=== PATIENT | female | born 1995 | race Caucasian/White ===

== ENCOUNTER 2019-04-21 20:43 | Emergency (ER) | payer BC, OTHER ==
[2019-04-21 21:27] LABS: Absolute Lymphocytes (CBC) 3.4 K/uL (0.7-4.9); Basophils % 0.4 % (0-1.3); Hematocrit 38.2 % (36.0-45.0); Lymphocytes % 34.2 % (15.3-44.8); MPV 7.7 fL (7.6-11.3); RBC Red Blood Cell Count 4.48 M/uL (3.86-4.86)
[2019-04-21 21:40] LABS: Urine Blood NEGATIVE (NEG); Urine Glucose NEGATIVE (NEG); Urine Protein NEGATIVE (NEG); Urine Specific Gravity 1.025 (1.005-1.030)
[2019-04-21 21:45] LABS: ALT/SGPT 20 U/L (12-78); AST/SGOT 16 U/L (15-37); Albumin 3.8 g/dL (3.4-5.0); Alkaline Phosphatase 82 U/L (45-117); BUN Blood Urea Nitrogen 9 mg/dL (7-18); Bicarbonate 27 mmol/L (21-32); Bilirubin Direct < 0.1 mg/dL (0-0.2); Bilirubin Total 0.3 mg/dL (0.2-1.0); Glucose Level 72 mg/dL (74-106); Lipase 190 U/L (73-393); Protein, Total 7.4 g/dL (6.4-8.2); Sodium Level 138 mmol/L (136-145)
[2019-04-21] MEDS ORDERED: NA CHLORIDE 0.9% 500 ML ONE (21:45)
[2019-04-21] MEDS ORDERED: MORPHINE 2 MG/ML SYR ONE (21:45)
[2019-04-21] MEDS ORDERED: MAGNE/ALUM HYDROXD 30 ML UCUP ONE (21:45)
[2019-04-21] MEDS ORDERED: FAMOTIDINE 20 MG/2 ML VIAL IV ONE (21:46)
[2019-04-21] MEDS ORDERED: LIDOCAINE VISCOUS 2% SOLN 15 ML UDC ONE (21:46)
--- NOTE | 2019-04-21 23:24 | ER ---
Nurse's Notes [facility] Name: Nusrat Mart Age: 23 yrs Sex: Female : 1995 Arrival Date: 04/21/2019 Time: 20:45 Bed 20 Private MD: Diagnosis: Abdominal and pelvic pain Presentation: 04/21 20:51 Presenting complaint: Patient states: Abdominal pain, lower back pain. Every time I ca1 eat, I have a stinging pain and like somebody is squeezing my intestines. Started almost a week now, comes and go but has gotten worse and today has been constant. Reports nausea and vomiting x1. Denies fever, constipation and diarrhea. Transition of care: patient was not received from another setting of care. Onset of symptoms was April 21, 2019. Risk Assessment: Do you want to hurt yourself or someone else? Patient reports no desire to harm self or others. Initial Sepsis Screen: Does the patient meet any 2 criteria? No. Patient's initial sepsis screen is negative. Does the patient have a suspected source of infection? No. Patient's initial sepsis screen is negative. Care prior to arrival: None. 20:51 Method Of Arrival: Ambulatory ca1 20:51 Acuity: PIERRE 3 ca1 Triage Assessment: 21:00 General: Appears in no apparent distress. uncomfortable, Behavior is calm, cooperative, cc3 appropriate for age. Pain: Complains of pain in right upper abdomen, left side abdomen. GI: Abdomen is round non-distended, Bowel sounds present X 4 quads. Abd is soft X 4 quads Abdomen is tender to palpation in right upper, left side abdomen. 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 - Social history:: Smoking status: Patient/guardian denies using tobacco. - Ebola Screening: : Patient negative for fever greater than or equal to 101.5 degrees Fahrenheit, and additional compatible Ebola Virus Disease symptoms Patient denies exposure to infectious person Patient denies travel to an Ebola-affected area in the 21 days before illness onset No symptoms or risks identified at this time. Screenin:00 Abuse screen: Denies threats or abuse. Denies injuries from another. Nutritional cc3 screening: No deficits noted. Tuberculosis screening: No symptoms or risk factors identified. Fall Risk Ambulatory Aid- None/Bed Rest/Nurse Assist (0 pts). Gait- Normal/Bed Rest/Wheelchair (0 pts) Mental Status- Oriented to own ability (0 pts). Assessment: 21:00 General: Appears in no apparent distress. uncomfortable, Behavior is calm, cooperative, cc3 appropriate for age. Pain: Complains of pain in right upper and left side abdomen Quality of pain is described as aching, Pain began 1 week ago. Neuro: Level of Consciousness is awake, alert, obeys commands, Oriented to person, place, time, situation, Appropriate for age. Cardiovascular: Denies chest pain, Heart tones S1 S2 present Capillary refill < 3 seconds in bilateral fingers Patient's skin is warm and dry. Respiratory: Airway is patent Respiratory effort is even, unlabored, Respiratory pattern is regular, symmetrical. GI: Abdomen is round non-distended, Bowel sounds present X 4 quads. Abd is soft X 4 quads Abdomen is tender to palpation in right upper and left side abdomen. : No signs and/or symptoms were reported regarding the genitourinary system. EENT: No signs and/or symptoms were reported regarding the EENT system. Derm: Skin is intact, is healthy with good turgor, Skin is pink, warm \T\ dry. normal. Musculoskeletal: Circulation, motion, and sensation intact. Range of motion: intact in all extremities. 22:10 Reassessment: Patient appears in no apparent distress at this time. Patient and/or cc3 family updated on plan of care and expected duration. Pain level reassessed. Patient is alert, oriented x 3, equal unlabored respirations, skin warm/dry/pink. Patient taken to CT scan department by wheelchair by the auto glass technician. 22:25 Reassessment: Patient came back from CT scan department, awaiting result. cc3 23:44 Reassessment: Patient appears in no apparent distress at this time. Patient and/or cc3 family updated on plan of care and expected duration. Pain level reassessed. Patient is alert, oriented x 3, equal unlabored respirations, skin warm/dry/pink. ACADEMIC TUTOR Norah discharged the patient home, no prescription given. IV cannula removed and patient left ER vitally stable by wheelchair escorted by me and the patient's family. No valuables left in the patient's room. Patient denies pain at this time. Patient states feeling better. Patient states symptoms have improved. Vital Signs: 20:55 BP 125 / 79; Pulse 81; Resp 16 S; Temp 97.9(O); Pulse Ox 99% on R/A; Weight 81.65 kg ca1 (R); Height 5 ft. 4 in. (162.56 cm) (R); Pain 5/10; 21:18 BP 120 / 74; Pulse 80; Resp 15 S; Pulse Ox 99% on R/A; cc3 22:31 BP 134 / 91; Pulse 66; Resp 15 S; Pulse Ox 100% on R/A; cc3 23:30 BP 122 / 81; Pulse 63; Resp 16 S; Pulse Ox 99% on R/A; Pain 0/10; cc3 20:55 Body Mass Index 30.90 (81.65 kg, 162.56 cm) ca1 ED Course: 20:45 Patient arrived in ED. ds1 20:54 Triage completed. ca1 20:55 Arm band placed on right wrist. ca1 20:59 Ángel Almazan FNP-C [facility]. la1 20:59 Ebenezer Wong MD is Attending Physician. la1 21:00 Iwona Gore is Primary Nurse. cc3 21:00 Patient has correct armband on for positive identification. Bed in low position. Call cc3 light in reach. Side rails up X2. 21:26 Inserted saline lock: 20 gauge in right antecubital area, using aseptic technique. jb5 Blood collected. 21:27 Pulse ox on. NIBP on. jb5 21:27 Head of bed lowered. Patient given pillow for her head.. jb5 22:26 CT Abd/Pelvis - IV Contrast Only In Process Unspecified. EDMS 22:26 CT completed. Patient tolerated procedure well. Patient moved back from CT. bq 23:45 No provider procedures requiring assistance completed. IV discontinued, intact, cc3 bleeding controlled, No redness/swelling at site. Pressure dressing applied. Administered Medications: 21:40 Drug: NS 0.9% 500 ml Route: IV; Rate: bolus; Site: right antecubital; cc3 22:15 Follow up: Response: No adverse reaction; IV Status: Completed infusion; IV Intake: cc3 500ml 21:40 Drug: GI Cocktail without - (Maalox Suspension 30 ml, Lidocaine Liquid 2 % 15 cc3 ml) Route: PO; 22:32 Follow up: Response: No adverse reaction; Pain is decreased cc3 21:45 Drug: morphine 2 mg {Note: RASS 0.} Route: IVP; Site: right antecubital; cc3 22:32 Follow up: Response: No adverse reaction; Pain is decreased; RASS: Alert and Calm (0) cc3 21:50 Drug: Pepcid 20 mg Route: IVP; Site: right antecubital; cc3 22:32 Follow up: Response: No adverse reaction; Pain is decreased cc3 Intake: 22:15 IV: 500ml; Total: 500ml. cc3 Outcome: 23:23 Discharge ordered by . la1 23:44 Patient left the ED. cc3 23:44 Discharged to home via wheelchair, with family. cc3 23:44 Condition: stable 23:44 Discharge instructions given to patient, family, Instructed on discharge instructions, follow up and referral plans. Demonstrated understanding of instructions, follow-up care. Signatures: Dispatcher [employer] EDRacheal Turk Demi ds1 Ángel Almazan, LINOLEUM LAYER-C LINOLEUM LAYER-Chance1 Angelina Rodriguez jb5 Iwona Groe cc3 Adriana Rodriguez, RN RN ca1
--- NOTE | 2019-04-21 23:25 | EDPHYS ---
Physician Documentation [facility] Name: Nusrat Mart Age: 23 yrs Sex: Female : 1995 Arrival Date: 04/21/2019 Time: 20:45 Bed 20 Private MD: ED Physician Ebenezer Wong HPI: 04/21 21:19 This 23 yrs old Female presents to ER via Ambulatory with complaints of la1 Abdominal Pain. 21:19 The patient presents with abdominal pain that is diffuse. Onset: The symptoms/episode la1 began/occurred 5 day(s) ago. The symptoms do not radiate. Associated signs and symptoms: Pertinent positives: nausea and vomiting. The symptoms are described as sharp. Modifying factors: The symptoms are alleviated by antacids, the symptoms are aggravated by food. Severity of pain: At its worst the pain was moderate. The patient has not experienced similar symptoms in the past. Pt reports abd pain since Monday, one episode of vomiting. Pain is worse after eating, pain relieved some with zantac. 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 - Social history:: Smoking status: Patient/guardian denies using tobacco. - Ebola Screening: : Patient negative for fever greater than or equal to 101.5 degrees Fahrenheit, and additional compatible Ebola Virus Disease symptoms Patient denies exposure to infectious person Patient denies travel to an Ebola-affected area in the 21 days before illness onset No symptoms or risks identified at this time. ROS: 21:20 Constitutional: Negative for fever, chills, and weight loss, Eyes: Negative for injury, la1 pain, redness, and discharge, ENT: Negative for injury, pain, and discharge, Neck: Negative for injury, pain, and swelling, Cardiovascular: Negative for chest pain, palpitations, and edema, Respiratory: Negative for shortness of breath, cough, wheezing, and pleuritic chest pain. 21:20 Back: Negative for injury and pain, MS/Extremity: Negative for injury and deformity, Skin: Negative for injury, rash, and discoloration, Neuro: Negative for headache, weakness, numbness, tingling, and seizure. 21:20 Abdomen/GI: Positive for abdominal pain, nausea and vomiting, Negative for diarrhea. Exam: 21:21 Constitutional: This is a well developed, well nourished patient who is awake, alert, la1 and in no acute distress. Head/Face: Normocephalic, atraumatic. Eyes: Pupils equal round and reactive to light, extra-ocular motions intact. Lids and lashes normal. Conjunctiva and sclera are non-icteric and not injected. Cornea within normal limits. Periorbital areas with no swelling, redness, or edema. ENT: Nares patent. No nasal discharge, no septal abnormalities noted. Tympanic membranes are normal and external auditory canals are clear. Oropharynx with no redness, swelling, or masses, exudates, or evidence of obstruction, uvula midline. Mucous membranes moist. Neck: Trachea midline, no thyromegaly or masses palpated, and no cervical lymphadenopathy. Supple, full range of motion without nuchal rigidity, or vertebral point tenderness. No Meningismus. Chest/axilla: Normal chest wall appearance and motion. Nontender with no deformity. No lesions are appreciated. Cardiovascular: Regular rate and rhythm with a normal S1 and S2. No gallops, murmurs, or rubs. Normal PMI, no JVD. No pulse deficits. Respiratory: Lungs have equal breath sounds bilaterally, clear to auscultation No rales, rhonchi or wheezes noted. No increased work of breathing, no retractions or nasal flaring. 21:21 Abdomen/GI: Inspection: abdomen appears normal, Bowel sounds: normal, Palpation: soft, in all quadrants, mild abdominal tenderness, in all quadrants, Indicators: McBurney's point is not tender, Vee's sign is negative, Rovsing's sign is negative, Obturator sign is negative, Psoas sign is negative. Vital Signs: 20:55 BP 125 / 79; Pulse 81; Resp 16 S; Temp 97.9(O); Pulse Ox 99% on R/A; Weight 81.65 kg ca1 (R); Height 5 ft. 4 in. (162.56 cm) (R); Pain 5/10; 21:18 BP 120 / 74; Pulse 80; Resp 15 S; Pulse Ox 99% on R/A; cc3 22:31 BP 134 / 91; Pulse 66; Resp 15 S; Pulse Ox 100% on R/A; cc3 23:30 BP 122 / 81; Pulse 63; Resp 16 S; Pulse Ox 99% on R/A; Pain 0/10; cc3 20:55 Body Mass Index 30.90 (81.65 kg, 162.56 cm) ca1 MDM: 20:59 Patient medically screened. la1 23:22 Data reviewed: vital signs, nurses notes, lab test result(s), radiologic studies, and la1 as a result, I will discharge patient. Data interpreted: Pulse oximetry: on room air is 100 %. Interpretation: normal. Counseling: I had a detailed discussion with the patient and/or guardian regarding: the historical points, exam findings, and any diagnostic results supporting the discharge/admit diagnosis, lab results, radiology results, the need for outpatient follow up, a family practitioner. 04/21 21:07 Order name: Basic Metabolic Panel; Complete Time: 21:52 ut04/21 21:07 Order name: CBC with Diff; Complete Time: 21:52 ut04/21 21:07 Order name: Creatinine for Radiology; Complete Time: 21:52 ut04/21 21:07 Order name: Hepatic Function; Complete Time: 21:52 [facility] 04/21 21:07 Order name: Lipase; Complete Time: 21:52 [facility] 04/21 21:32 Order name: Urine Dipstick--Ancillary (enter results); Complete Time: 21:52 co 04/21 21:07 Order name: IV Saline Lock; Complete Time: 21:58 [facility] 04/21 21:07 Order name: Labs collected and sent; Complete Time: 21:58 [facility] 04/21 21:32 Order name: Urine --Ancillary (enter results); Complete Time: 21:52 co 04/21 22:01 Order name: CT Abd/Pelvis - IV Contrast Only [facility] 04/21 21:07 Order name: Urine Dipstick-Ancillary (obtain specimen); Complete Time: 21:58 ut04/21 21:07 Order name: Urine Test (obtain specimen); Complete Time: 21:58 la1 Administered Medications: 21:40 Drug: NS 0.9% 500 ml Route: IV; Rate: bolus; Site: right antecubital; cc3 22:15 Follow up: Response: No adverse reaction; IV Status: Completed infusion; IV Intake: cc3 500ml 21:40 Drug: GI Cocktail without - (Maalox Suspension 30 ml, Lidocaine Liquid 2 % 15 cc3 ml) Route: PO; 22:32 Follow up: Response: No adverse reaction; Pain is decreased cc3 21:45 Drug: morphine 2 mg {Note: RASS 0.} Route: IVP; Site: right antecubital; cc3 22:32 Follow up: Response: No adverse reaction; Pain is decreased; RASS: Alert and Calm (0) cc3 21:50 Drug: Pepcid 20 mg Route: IVP; Site: right antecubital; cc3 22:32 Follow up: Response: No adverse reaction; Pain is decreased cc3 Disposition: 04/22 06:04 Co-signature as Attending Physician, Ebenezer Wong MD I agree with the assessment and tw4 plan of care. Disposition: 04/21/19 23:23 Discharged to Home. Impression: Abdominal and pelvic pain. - Condition is Stable. - Discharge Instructions: Abdominal Pain, Adult, [id number]. - Medication Reconciliation Form, Thank You Letter form. - Follow up: Private Physician; When: 2 - 3 days; Reason: Recheck today's complaints, Re-evaluation by your physician. Follow up: Emergency Department; When: As needed. - Problem is new. - Symptoms have improved. Signatures: Dispatcher [employer] EDMS Ángel Almazan, NET LEAD ARCHITECT-C NET LEAD ARCHITECT-Cla1 Ebenezer Wong MD MD tw4 Iwona Gore cc3 Adriana Rodriguez RN RN ca1 Corrections: (The following items were deleted from the chart) 04/21 23:44 23:23 04/21/2019 23:23 Discharged to Home. Impression: Abdominal and pelvic pain. cc3 Condition is Stable. Forms are Medication Reconciliation Form, Thank You Letter, Antibiotic Education, Prescription Opioid Use. Follow up: Private Physician; When: 2 - 3 days; Reason: Recheck today's complaints, Re-evaluation by your physician. Follow up: Emergency Department; When: As needed. Problem is new. Symptoms have improved. la1
[2019-04-22 04:22] VITALS: TEMP 97.9
[2019-04-22 04:28] VITALS: BP 134/91; O2SAT 100
--- NOTE | 2019-04-23 12:29 | RAD REPORT ---
EXAM DESCRIPTION: CT - Abdomen Pelvis W Contrast - 04/22/2019 5:55 am CLINICAL HISTORY: Abdominal pain. COMPARISON: None. TECHNIQUE: CT scan of the abdomen and pelvis was performed with IV contrast. This exam was performed according to our departmental dose-optimization program, which includes automated exposure control, adjustment of the mA and/or kV according to patient size and/or use of iterative reconstruction techn ique. FINDINGS: The lung bases are clear. No pleural or pericardial effusions. There is no hiatal hernia. The liver, spleen, pancreas, gallbladder, adrenal glands, and kidneys are unremarkable. No urinary st ones are seen. There is a 2.4 cm left ovarian cyst. No small bowel obstruction. The appendix is normal. There is no evidence of diverticulitis. No intrap eritoneal free fluid or free air is identified. The aorta is normal caliber. No acute bony findings are seen. There is no pathologic body wall hernia . IMPRESSION: 2.4 cm benign appearing ovarian cyst. No follow-up imaging is recommended. 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 The interpreting radiologist is f ully responsible for the content of the report.
== END 2019-04-21 23:44 | disposition home or self-care (01) ==
LOC: ER 20:43
DX: R10.2 Pelvic and perineal pain (principal); E03.9 Hypothyroidism, unspecified; F32.9 Major depressive disorder, single episode, unspecified
CPT/HCPCS: 96361; 85025; 80048; 36415; 81025; 80076; 81003; 83690; 74177; 96375; 96374; 99284; Q9967; J2270; J7040

== ENCOUNTER 2020-01-31 11:41 | Emergency (ER) | payer BC ==
[2020-01-31 12:42] LABS: Absolute Lymphocytes (CBC) 1.6 K/uL (0.7-4.9); Basophils % 0.7 % (0-1.3); Hematocrit 38.9 % (36.0-45.0); Lymphocytes % 27.2 % (15.3-44.8); MPV 7.5 fL (7.6-11.3); RBC Red Blood Cell Count 4.62 M/uL (3.86-4.86)
[2020-01-31 12:44] LABS: Protime INR 1.12
--- NOTE | 2020-01-31 12:51 | RAD REPORT ---
EXAM DESCRIPTION: RAD - Chest Single View - 01/31/2020 12:45 pm CLINICAL HISTORY: CHEST PAIN Chest pain. COMPARISON: No comparisons FINDINGS: Portable technique limits examination quality. The lungs are grossly clear. The heart is normal in size. No displaced fractures. IMPRESSION: No acute intrathoracic process suspected.
[2020-01-31 13:02] LABS: ALT/SGPT 20 U/L (12-78); AST/SGOT 14 U/L (15-37); Albumin 3.5 g/dL (3.4-5.0); Alkaline Phosphatase 87 U/L (45-117); BUN Blood Urea Nitrogen 15 mg/dL (7-18); Bicarbonate 26 mmol/L (21-32); Bilirubin Direct 0.1 mg/dL (0-0.2); Bilirubin Total 0.5 mg/dL (0.2-1.0); Glucose Level 82 mg/dL (74-106); Protein, Total 7.3 g/dL (6.4-8.2); Sodium Level 139 mmol/L (136-145)
[2020-01-31 13:19] LABS: Barbiturates NEGATIVE (NEGATIVE); Benzodiazepines POSITIVE (NEGATIVE); Cocaine NEGATIVE (NEGATIVE); METHAMPHETAM NEGATIVE (NEGATIVE); Methadone NEGATIVE (NEGATIVE); Opiates NEGATIVE (NEGATIVE); Phencyclidine NEGATIVE (NEGATIVE); THC Cannibis NEGATIVE (NEGATIVE)
--- NOTE | 2020-01-31 13:28 | ER ---
Nurse's Notes [facility] Name: Nusrat Mart Age: 24 yrs Sex: Female : 1995 Arrival Date: 01/31/2020 Time: 11:45 Bed 23 Private MD: Diagnosis: Poisoning by selective serotonin reuptake inhibitors, accidental (unintentional) Presentation: 01/30 11:46 Chief complaint: Patient states: has accidently been taking Prozac 400 mg PO for the sv past 5 days, stated she placed her pills incorrectly in her pill box. c/o headache, SOB. Reports her last dose was yeseterday. Coronavirus screen: Client denies travel out of the [place] in the last 14 days. At this time, the client does not indicate any symptoms associated with coronavirus-19. Ebola Screen: No symptoms or risks identified at this time. Risk Assessment: Do you want to hurt yourself or someone else? Patient reports no desire to harm self or others. Onset of symptoms was January 31, 2020. 11:46 Method Of Arrival: Ambulatory sv 11:46 Acuity: PIERRE 2 sv 11:48 Initial Sepsis Screen: Does the patient meet any 2 criteria? No. Patient's initial sv sepsis screen is negative. Does the patient have a suspected source of infection? No. Patient's initial sepsis screen is negative. Triage Assessment: 11:46 General: Appears in no apparent distress. comfortable, Behavior is cooperative, sv appropriate for age. Pain: Denies pain. Neuro: Level of Consciousness is awake, alert, obeys commands, Oriented to person, place, time, situation, Gait is steady. Respiratory: Respiratory effort is even, unlabored, Respiratory pattern is regular, symmetrical. 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 - Social history:: Smoking status: Patient denies any tobacco usage or history of. Screenin:53 Abuse screen: Denies threats or abuse. Nutritional screening: No deficits noted. jd3 Tuberculosis screening: No symptoms or risk factors identified. Fall Risk IV access (20 points). Ambulatory Aid- None/Bed Rest/Nurse Assist (0 pts). Gait- Normal/Bed Rest/Wheelchair (0 pts) Mental Status- Oriented to own ability (0 pts). Total Hodge Fall Scale indicates No Risk (0-24 pts). Assessment: 12:05 Reassessment: Called poison control and spoke with Shara. They recommend a toxic sv workup, basic labs, , observe her for 8 hours from time of ingestion. She is to f/u with the MD who prescribed the medication so she can know when to resume the medication. Case #[id number]. 12:51 General: Appears in no apparent distress. uncomfortable, Behavior is calm, cooperative, jd3 appropriate for age. Pain: Complains of pain in chest Pain radiates to right arm and left arm Quality of pain is described as pressure, sharp, Is continuous. Neuro: Level of Consciousness is awake, alert, obeys commands, Oriented to person, place, time, situation. Cardiovascular: Capillary refill < 3 seconds Patient's skin is warm and dry. Rhythm is irregular. Respiratory: Reports shortness of breath on exertion Airway is patent Respiratory effort is even, unlabored, Respiratory pattern is regular, symmetrical. GI: No signs and/or symptoms were reported involving the gastrointestinal system. Patient currently denies diarrhea, nausea, vomiting. : No signs and/or symptoms were reported regarding the genitourinary system. EENT: No signs and/or symptoms were reported regarding the EENT system. Derm: Skin is intact, Skin is dry, Skin is normal, Skin temperature is warm. Musculoskeletal: Circulation, motion, and sensation intact. Range of motion: intact in all extremities. 13:40 Reassessment: Patient appears in no apparent distress at this time. Patient and/or jd3 family updated on plan of care and expected duration. Pain level reassessed. Patient is alert, oriented x 3, equal unlabored respirations, skin warm/dry/pink. pt reported understanding of discharge instructions, even and steady gait upon discharge. Vital Signs: 11:48 BP 116 / 72; Pulse 80; Resp 16; Temp 98.5; Pulse Ox 100% ; Weight 99.79 kg; Height 5 sv ft. 4 in. (162.56 cm); 13:15 BP 113 / 58; Pulse 58; Resp 17 S; Pulse Ox 99% on R/A; jd3 13:39 BP 106 / 62; Pulse 59; Resp 16 S; Pulse Ox 99% on R/A; jd3 11:48 Body Mass Index 37.76 (99.79 kg, 162.56 cm) sv ED Course: 11:45 Patient arrived in ED. mr 11:46 Arm band placed on. sv 11:48 Triage completed. sv 11:51 Rosy Henson FNP-C is [facility]. kb 11:51 Steven Valdez MD is Attending Physician. kb 12:20 Inserted saline lock: 20 gauge in left antecubital area, using aseptic technique. Blood sv collected. Flushed left antecubital with 5 ml normal saline. 12:41 Luis Mccauley, RN is Primary Nurse. jd3 12:45 Chest Single View XRAY In Process Unspecified. EDMS 12:53 Patient has correct armband on for positive identification. Bed in low position. Call jd3 light in reach. Side rails up X 1. hairspring truer on. Pulse ox on. NIBP on. 13:39 No provider procedures requiring assistance completed. IV discontinued, intact, jd3 bleeding controlled, No redness/swelling at site. Pressure dressing applied. Administered Medications: No medications were administered Outcome: 13:28 Discharge ordered by MD. kb 13:39 Discharged to home ambulatory, with family. jd3 13:39 Condition: stable 13:39 Discharge instructions given to patient, Instructed on discharge instructions, follow up and referral plans. Demonstrated understanding of instructions, follow-up care. 13:41 Patient left the ED. jd3 Signatures: Dispatcher [employer] EDAR Rosy Henson FNP-C FNP-Opal Crook RN RN sv Rivera, Mary mr Luis Mccauley, RN RN jd3 Corrections: (The following items were deleted from the chart) 11:50 11:46 Chief complaint: Patient states: has accidently been taking Prozac 400 mg PO for sv the past 5 days, stated she placed her pills incorrectly in her pill box. c/o headache, SOB sv 11:50 11:48 Pulse 80bpm; Resp 16bpm; Pulse Ox 100%; Temp 98.5F; 99.79 kg; Height 5 ft. 4 in.; sv BMI: 37.7; sv
--- NOTE | 2020-01-31 13:28 | EDPHYS ---
Physician Documentation [facility] Name: Nusrat Mart Age: 24 yrs Sex: Female : 1995 Arrival Date: 01/31/2020 Time: 11:45 Bed 23 Private MD: ED Physician Steven Valdez HPI: 01/30 15:58 This 24 yrs old Female presents to ER via Ambulatory with complaints of Over kb medicating. 15:58 The patient presents to the emergency department after a known overdose. Context: kb Method: the patient has a confirmed or suspected ingestion, the OD/poisoning occurred at at home. Associated signs and symptoms: Pertinent positives: nausea, not feeling well. Severity of symptoms: At their worst the symptoms were moderate in the emergency department the symptoms are unchanged. The patient has not experienced similar symptoms in the past. The patient has not recently seen a physician. Pt reports she takes zoloft in the morning and her other meds at night. Has a night time pill organizer that she uses, but bought a new one yesterday. When she went to change her meds to the new one she noticed zoloft in the night pill box meaning she was taking 200mg in the morning like normal, then another 200mg at night for the last 5 days. Last dose was yesterday morning. States she has been feeling sick with nausea and some chest pain since Monday.. 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 - Social history:: Smoking status: Patient denies any tobacco usage or history of. ROS: 13:24 Constitutional: Negative for fever, chills, and weight loss, Abdomen/GI: Negative for kb abdominal pain, nausea, vomiting, diarrhea, and constipation, Back: Negative for injury and pain, MS/Extremity: Negative for injury and deformity, Skin: Negative for injury, rash, and discoloration, Neuro: Negative for headache, weakness, numbness, tingling, and seizure. 13:24 Cardiovascular: Positive for chest pain, Negative for edema, orthopnea, palpitations, paroxysmal nocturnal dyspnea. 13:24 Respiratory: Positive for shortness of breath, Negative for cough, dyspnea on exertion, hemoptysis, orthopnea, pleurisy, sputum production, wheezing. Exam: 12:54 Constitutional: This is a well developed, well nourished patient who is awake, alert, kb and in no acute distress. Head/Face: Normocephalic, atraumatic. Chest/axilla: Normal chest wall appearance and motion. Nontender with no deformity. No lesions are appreciated. Cardiovascular: Regular rate and rhythm with a normal S1 and S2. No gallops, murmurs, or rubs. Normal PMI, no JVD. No pulse deficits. Respiratory: Lungs have equal breath sounds bilaterally, clear to auscultation and percussion. No rales, rhonchi or wheezes noted. No increased work of breathing, no retractions or nasal flaring. Abdomen/GI: Soft, non-tender, with normal bowel sounds. No distension or tympany. No guarding or rebound. No evidence of tenderness throughout. Skin: Warm, dry with normal turgor. Normal color with no rashes, no lesions, and no evidence of cellulitis. MS/ Extremity: Pulses equal, no cyanosis. Neurovascular intact. Full, normal range of motion. Neuro: Awake and alert, GCS 15, oriented to person, place, time, and situation. Cranial nerves II-XII grossly intact. Motor strength 5/5 in all extremities. Sensory grossly intact. Cerebellar exam normal. Normal gait. 12:54 ECG was reviewed by the Attending Physician. Vital Signs: 11:48 BP 116 / 72; Pulse 80; Resp 16; Temp 98.5; Pulse Ox 100% ; Weight 99.79 kg; Height 5 sv ft. 4 in. (162.56 cm); 13:15 BP 113 / 58; Pulse 58; Resp 17 S; Pulse Ox 99% on R/A; jd3 13:39 BP 106 / 62; Pulse 59; Resp 16 S; Pulse Ox 99% on R/A; jd3 11:48 Body Mass Index 37.76 (99.79 kg, 162.56 cm) sv MDM: 11:51 Patient medically screened. kb 13:23 Data reviewed: vital signs, nurses notes. Data interpreted: Pulse oximetry: on room air kb is 99 %. Interpretation: normal. Counseling: I had a detailed discussion with the patient and/or guardian regarding: the historical points, exam findings, and any diagnostic results supporting the discharge/admit diagnosis, lab results, radiology results, the need for outpatient follow up, a family practitioner, to return to the emergency department if symptoms worsen or persist or if there are any questions or concerns that arise at home. 01/30 12:07 Order name: Acetaminophen; Complete Time: 13:11 kb 01/30 12:07 Order name: Basic Metabolic Panel; Complete Time: 13:11 kb 01/30 12:07 Order name: CBC with Diff; Complete Time: 12:45 kb 01/30 12:07 Order name: ETOH Level; Complete Time: 13:03 kb 01/30 12:07 Order name: Hepatic Function; Complete Time: 13:11 kb 01/30 12:07 Order name: PT-INR; Complete Time: 12:51 kb 01/30 12:07 Order name: Urine Test (obtain specimen); Complete Time: 13:11 kb 01/30 12:07 Order name: Ptt, Activated; Complete Time: 12:51 kb 01/30 12:07 Order name: Salicylate; Complete Time: 13:33 kb 01/30 12:07 Order name: Urine Drug Screen; Complete Time: 13:22 kb 01/30 12:07 Order name: EKG; Complete Time: 12:08 kb 01/30 12:07 Order name: EKG - Nurse/Tech; Complete Time: 12:51 kb 01/30 12:07 Order name: IV Saline Lock; Complete Time: 12:28 kb 01/30 12:13 Order name: Chest Single View XRAY; Complete Time: 12:53 kb 01/30 12:07 Order name: Labs collected and sent; Complete Time: 12:28 kb 01/30 12:07 Order name: Urine Dipstick-Ancillary (obtain specimen); Complete Time: 13:11 kb EC:54 Rate is 61 beats/min. Rhythm is regular. QRS [place] is Normal. MI interval is normal at kb 174 msec. QRS interval is normal at 82 msec. QT interval is normal at 384 msec. Administered Medications: No medications were administered Disposition: 16:42 Co-signature as Attending Physician, Steven Valdez MD I agree with the assessment and kdr plan of care. Disposition: 01/31/20 13:28 Discharged to Home. Impression: Poisoning by selective serotonin reuptake inhibitors, accidental (unintentional). - Condition is Stable. - Discharge Instructions: Accidental Overdose. - Medication Reconciliation Form, Thank You Letter, Antibiotic Education, Prescription Opioid Use, Work release form form. - Follow up: Emergency Department; When: As needed; Reason: Worsening of condition. Follow up: Private Physician; When: 2 - 3 days; Reason: Recheck today's complaints, Continuance of care, Re-evaluation by your physician. Signatures: Dispatcher [employer] EDMS Rosy Henson, CESAR-C PHOTOCOPYING EQUIPMENT REPAIRER-Opal Crook, RN RN sv Steven Valdez MD MD kdr Davies, Jonathon, RN RN jd3 Corrections: (The following items were deleted from the chart) 13:41 13:28 01/31/2020 13:28 Discharged to Home. Impression: Poisoning by selective serotonin jd3 reuptake inhibitors, accidental (unintentional). Condition is Stable. Forms are Medication Reconciliation Form, Thank You Letter, Antibiotic Education, Prescription Opioid Use. Follow up: Emergency Department; When: As needed; Reason: Worsening of condition. Follow up: Private Physician; When: 2 - 3 days; Reason: Recheck today's complaints, Continuance of care, Re-evaluation by your physician. kb
[2020-01-31 18:29] VITALS: TEMP 98.5
[2020-01-31 18:30] VITALS: O2SAT 99
[2020-01-31 18:31] VITALS: BP 106/62
== END 2020-01-31 13:41 | disposition home or self-care (01) ==
LOC: ER 11:41
DX: T43.221A Poisoning by selective serotonin reuptake inhibitors, accidental (unintentional), initial encounter (principal)
CPT/HCPCS: 36415; 71045; 80048; 80076; 80307; 80320; 80329; 85025; 85610; 85730; 93005; 99284

== ENCOUNTER 2021-10-28 12:43 | Emergency (ER) | payer BC ==
--- OUTSIDE RECORDS SUMMARY | 2021-10-28 12:46 | XMS REPORT | Continuity of Care Document ---
:[address] [facility], [place] t Address [address] [place] [address] [address] [place] [address] Care Team Providers Name Role Phone Provider, Urgent Care Attending Clinician Unavailable Fanta Chapman MD Attending Clinician Fanta CHAPMAN Attending Clinician Unavailable Doctor Unassigned, Name Attending Clinician Unavailable MORIAH STEVENS Attending Clinician Unavailable Bandar GUERRERO Attending Clinician BANDAR Attending Clinician Unavailable Payers Payer Name Policy Type Policy Number Effective Date Expiration Date S ource Problems Condition Condition Condition Status Onset Resolution Last Treating Co mments Source Name Details Category Date Date Treatment Clinician Date No known No known Disease Unive rs active active ity of problems problems [facility] Allergies, Adverse Reactions, Alerts Allergy Allergy Status Severity Reaction(s) Onset Inactive Treating Comm ents Source Name Type Date Date Clinician NO KNOWN Drug Active Univers ALLERGIE Class ity of [facility] Social History Social Habit Start Date Stop Date Quantity Comments Source Exposure to Not sure [facility] SARS-CoV-2 (event) Medica l Branch Tobacco use and 2020-11-23 2020-11-23 Never used [facility] exposure 00:00:00 00:00:00 [facility] Sex Ass[birth year] [facility] 00:00:00 00:00:00 [facility] Smoking Status Start Date Stop Date Source Never smoker [facility] Medications Ordered Filled Start Stop Current Ordering Indication Dosage Frequency Signature Comments Components Source Medication Medication Date Date Medication? Clinician (SIG) Name Name metoclopram Yes [id number] 1 tab Univers luis HCl 10 7-12 every 4hr ity of mg tablet 00:00: as needed Garrett as 00 for nausea [facility] levothyroxi Yes 75ug Take 75 Uni vers ne 75 mcg 6-07 mcg by ity of tablet 00:00: mouth. [place] [facility] SERTraline Yes 50mg Take 50 mg U nivers 50 mg 6-07 by mouth ity of tablet 00:00: daily. [address] hydrOXYzine Yes TAKE 1 Univ ers 25 mg 4-16 TABLET BY ity of tablet 00:00: MOUTH [place] [address] TWICE Medical DAILY Branch NEEDED No known No [facility] No known No Univers medications ity [facility] No known No Univers medications [facility] No known No Univers medications [facility] Immunizations Ordered Filled Immunization Date Status Comments [facility] e Immunization Name Name SARS-COV-2 COVID-19 2020-10-30 Completed Unive rsity of PFIZER VACCINE 00:00:00 [facility] SARS-COV-2 COVID-19 2020-10-30 Completed Unive rsity of PFIZER VACCINE 00:00:00 [facility] SARS-COV-2 COVID-19 2020-10-30 Completed Unive rsity of PFIZER VACCINE 00:00:00 [facility] SARS-COV-2 COVID-19 2020-10-30 Completed Unive rsity of PFIZER VACCINE 00:00:00 [facility] SARS-COV-2 COVID-19 2020-09-30 Completed Unive rsity of PFIZER VACCINE 00:00:00 [facility] SARS-COV-2 COVID-19 2020-09-30 Completed Unive rsity of PFIZER VACCINE 00:00:00 [facility] SARS-COV-2 COVID-19 2020-09-30 Completed Unive rsity of PFIZER VACCINE 00:00:00 [facility] SARS-COV-2 COVID-19 2020-09-30 Completed Unive rsity of PFIZER VACCINE 00:00:00 [facility] Vital Signs Vital Name Observation Time Observation Value Comments Source Systolic blood 2020-11-24 01:03:00 136 mm[Hg] Univer sity of pressure [facility] Diastolic blood 2020-11-24 01:03:00 88 mm[Hg] Unive rsity of pressure [facility] Heart rate 2020-11-24 01:03:00 84 /min Universi ty [facility] Body temperature 2020-11-24 01:03:00 36.72 Misti [facility] ersity of [facility] Respiratory rate 2020-11-24 01:03:00 16 /min Univ ersity of [facility] Body height 2020-11-24 01:03:00 162.6 cm Universi ty [facility] Body weight 2020-11-24 01:03:00 77.111 kg [facility]i [facility] BMI 2020-11-24 01:03:00 29.18 kg/m2 Universi ty of [facility] Oxygen saturation in 2020-11-24 01:03:00 98 /min University of Arterial blood by [facility] Pulse oximetry Branch Systolic blood 2020-05-28 15:00:00 111 mm[Hg] Univer sity of pressure [facility] Diastolic blood 2020-05-28 15:00:00 76 mm[Hg] Unive rsity of [facility] Heart rate 2020-05-28 15:00:00 85 /min Universi ty [facility] Body temperature 2020-05-28 15:00:00 36.72 Misti [facility] ersity of [facility] Respiratory rate 2020-05-28 15:00:00 18 /min [facility] ersity of [facility] Body height 2020-05-28 15:00:00 162.6 cm Universi ty [facility] Body weight 2020-05-28 15:00:00 99.791 kg [facility] BMI 2020-05-28 15:00:00 37.76 kg/m2 Universi ty of [facility] Branch Oxygen saturation in 2020-05-28 15:00:00 99 /min University of Arterial blood by [facility] Pulse oximetry Branch Procedures Procedure Date / Time Performed Performing Clinician Sourc e POCT GRP A STREP 2020-11-24 01:15:00 Melissa Ponce [facility] ([facility]) Medical Branch ASSIGNMENT OF BENEFITS 2020-11-24 00:53:27 Doctor Unassigned, No [facility] POCT GRP A STREP 2020-05-28 00:00:00 Steven Zamudio [facility]) [facility] [place] POCT FLU A AND B 2020-05-28 00:00:00 Steven Zamudio [facility] ([facility]) Medical Branch Encounters Start End Encounter Admission Attending Care Care Encounter Source Date/Time Date/Time Type Type Clinicians Facility Department ID 2020-11-23 2020-11-23 Urgent Provider[facility] [id number] Univers 19:54:01 20:42:50 Care Richi Chapman [facility] [id number] ity of [place] [id number] Garrett as Professio [phone] [address] Office [address] 2020-11-23 2020-11-23 Outpatient Pedro CHAPMAN [facility] [id number] Univers 20:20:00 20:20:00 RICHI riley [facility] 2020-11-23 2020-11-23 Orders Doctor CORBIN [id number] Univers 00:00:00 00:00:00 Only Unassigned, DAISHA [id number] ity of [facility] [id number] Garrett as [phone] [address] 2020-11-23 2020-11-23 Letter Doctor CORBIN [id number] Univers 00:00:00 00:00:00 (Out) Unassigned, DAISHA [id number] ity of [facility] [id number] Garrett as [phone] [address] 2020-11-23 2020-11-23 Letter Doctor CORBIN [id number] Univers 00:00:00 00:00:00 (Out) Unassigned, DAISHA [id number] ity of [facility] [id number] Garrett as [phone] [address] 2020-10-21 2020-10-21 Outpatient Pedro STEVENS [facility] [id number] Univers 08:30:00 08:30:00 WILLIAM riley [facility] 2020-09-30 2020-09-30 Outpatient Pedro STEVENS [facility] [id number] Univers 08:20:00 08:20:00 WILLIAM riley [facility] 2020-05-28 2020-05-28 Urgent Provider, [facility] [id number] [facility] 08:53:14 09:31:38 Care Zamudio Steven [facility] [id number] [facility] [id number] Garrett as Doryio [phone] [place] [address] Branch [address] 2020-05-28 2020-05-28 [facility] [id number] [facility] 09:00:00 09:00:00 STEVEN riley [facility] Results Test Description Test Time Test Comments Results Result Comments Source POCT GRP A STREP (MOLECULAR) 2020-11-24 01:15:00 Test Item Value Reference Range Interpretation Comme nts POCT GP A STREP (test code = negative Negative - Negative 59520-7) YAO (test code = YAO) accurate development and interpretation of all internal controls Lab Interpretation (test code = Normal 61996-2) [facility] GRP A STREP (MOLECULAR)2020-05-28 15:19:00 Test Item Value Reference Range Interpretation Comments POCT GP A STREP (test code = negative Negative - Negative 55602-6) [facility] FLU A AND B (MOLECULAR)2020-05-28 15:19:00 Test Item Value Reference Range Interpretation Comments POCT INFLUENZA A (test code = negative Negative - Negative 3840) POCT INFLUENZA B (test code = negative Negative - Negative 3841) [facility]
[2021-10-28] MEDS ORDERED: NA CHLORIDE 0.9% 1,000 ML ONE (13:16)
[2021-10-28 13:20] LABS: Absolute Lymphocytes (CBC) 2.3 K/uL (0.7-4.9); Hematocrit 39.9 % (36.0-45.0); Lymphocytes % 27.4 % (15.3-44.8); MPV 7.2 fL (7.6-11.3); RBC Red Blood Cell Count 4.64 M/uL (3.86-4.86)
--- NOTE | 2021-10-28 14:47 | EDPHYS ---
Physician Documentation [facility] Name: Nusrat Mart Age: 26 yrs Sex: Female : 1995 Arrival Date: 10/28/2021 Time: 12:44 Bed 16 Private MD: ED Physician Rommel Winston HPI: 10/28 14:52 This 26 yrs old Female presents to ER via Wheelchair with complaints of Syncope. kb 14:52 The patient has not experienced similar symptoms in the past. The patient has not kb recently seen a physician. 14:53 The patient has experienced near-syncope, almost passed out, felt faint, felt generally kb weak. Onset: The symptoms/episode began/occurred today. Duration: This was a single episode. Context: occurred at work, occurred while the patient was standing, Just prior to the episode the patient experienced weakness. Associated injury: The patient did not suffer any apparent associated injury. Associated signs and symptoms: Pertinent positives: weakness. Current symptoms: decreased level of consciousness, is arousable but tired. Family reports pt's doctor told her to up the dose of her bipolar medication yesterday so today was the first day of the increased dose. States pt has a low tolerance for the medications so when she felt weak this morning they expected it. States it just got worse throughout the day. they decided to come to the ER when she almost passed out. 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 - Social history:: Smoking status: . ROS: 14:52 Constitutional: Negative for fever, chills, and weight loss. kb 14:52 Neuro: Positive for near syncope, weakness. 14:52 All other systems are negative. Exam: 14:52 Head/Face: Normocephalic, atraumatic. ENT: Moist Mucous membranes Cardiovascular: kb Regular rate and rhythm with a normal S1 and S2. No gallops, murmurs, or rubs. No pulse deficits. Respiratory: Respirations even and unlabored. No increased work of breathing. Talking in full sentences Abdomen/GI: Soft, non-tender. No distention Skin: Warm, dry with normal turgor. Normal color. MS/ Extremity: Pulses equal, no cyanosis. Neurovascular intact. Full, normal range of motion. Neuro: Awake and alert, GCS 15, oriented to person, place, time, and situation. Moves all extremities. Normal gait. Psych: Awake, alert, with orientation to person, place and time. Behavior, mood, and affect are within normal limits. 14:52 Constitutional: The patient appears alert, awake. Vital Signs: 12:51 Pulse 63; Resp 16; Temp 99.0; Pulse Ox 100% on R/A; iw 13:30 BP 110 / 58; Pulse 69; Resp 14 S; Pulse Ox 98% on R/A; aa5 14:41 BP 110 / 63; Pulse 65; Resp 17; Pulse Ox 100% on R/A; tw2 MDM: 12:51 Patient medically screened. kb 14:51 Data reviewed: vital signs, nurses notes. Data interpreted: Pulse oximetry: on room air kb is 100 %. Interpretation: normal. Counseling: I had a detailed discussion with the patient and/or guardian regarding: the historical points, exam findings, and any diagnostic results supporting the discharge/admit diagnosis, lab results, the need for outpatient follow up, a family practitioner, to return to the emergency department if symptoms worsen or persist or if there are any questions or concerns that arise at home. ED course: Pt is feeling better and wants to leave. Family member in agreement with going home. 10/28 12:51 Order name: CBC with Diff; Complete Time: 13:38 kb 10/28 12:51 Order name: Basic Metabolic Panel; Complete Time: 13:38 kb 10/28 12:51 Order name: IV Start; Complete Time: 13:15 kb Administered Medications: 13:21 Drug: NS 0.9% 1000 ml Route: IV; Rate: 1000 ml; Site: right antecubital; aa5 14:41 Follow up: Response: No adverse reaction; IV Status: Completed infusion; IV Intake: tw2 1000ml Disposition: 19:53 Co-signature as Attending Physician, Rommel Winston DO Elana was immediately available on-site ms3 in the Emergency Department for consultation in the care of the patient.. Disposition Summary: 10/28/21 14:47 Discharge Ordered Location: Home kb Condition: Stable kb Diagnosis - Syncope Near kb Followup: kb - With: Emergency Department - When: As needed - Reason: Worsening of condition Followup: kb - With: Private Physician - When: 2 - 3 days - Reason: Recheck today's complaints, Continuance of care, Re-evaluation by your physician Discharge Instructions: - Near-Syncope, [id number] kb - Discharge Summary Sheet tw2 Forms: - Medication Reconciliation Form kb - Thank You Letter kb - Antibiotic Education kb - Prescription Opioid Use kb - Work release form tw2 Signatures: Dispatcher [employer] EDRosy Rodriguez, CARTOGRAPHY/MAPPING TECHNICIAN-C CARTOGRAPHY/MAPPING TECHNICIAN-Mallika Ann, RN RN aa5 Myriam Conn RN RN tw2 Rommel Winston DO DO ms3
--- NOTE | 2021-10-28 14:47 | ER ---
Nurse's Notes [facility] Name: Nusrat Mart Age: 26 yrs Sex: Female : 1995 Arrival Date: 10/28/2021 Time: 12:44 Bed 16 Private MD: Diagnosis: Syncope Near Presentation: 10/28 12:47 Note provider at bedside at this time. tw2 12:51 Chief complaint: Parent and/or Guardian states: dosages on her psych meds were iw increased yesterday , today she started to feel weak and weird while at work, called her psychiatrist and was told to stop the Strattera tomorrow. Coronavirus screen: At this time, the client does not indicate any symptoms associated with coronavirus-19. Ebola Screen: Patient negative for fever greater than or equal to 101.5 degrees Fahrenheit, and additional compatible Ebola Virus Disease symptoms Patient denies exposure to infectious person. Patient denies travel to an Ebola-affected area in the 21 days before illness onset. No symptoms or risks identified at this time. Initial Sepsis Screen: Does the patient meet any 2 criteria? No. Patient's initial sepsis screen is negative. Does the patient have a suspected source of infection? No. Patient's initial sepsis screen is negative. Risk Assessment: Do you want to hurt yourself or someone else? Patient reports no desire to harm self or others. Onset of symptoms was October 28, 2021. 12:51 Method Of Arrival: Wheelchair iw 12:51 Acuity: PIERRE 3 iw Triage Assessment: 12:47 General: Appears in no apparent distress. Behavior is quiet. Pain: Denies pain. Neuro: tw2 Crespo Agitation-Sedation Scale (RASS): -1 Drowsy Level of Consciousness is awake, obeys commands, Oriented to person, place, situation. Respiratory: Airway is patent Respiratory effort is even, unlabored, Respiratory pattern is regular, symmetrical. 14:40 Neuro: Crespo Agitation-Sedation Scale (RASS): 0 - Alert and Calm. 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 - Social history:: Smoking status: . Screenin:33 Abuse screen: Denies threats or abuse. Nutritional screening: No deficits noted. tw2 Tuberculosis screening: No symptoms or risk factors identified. Fall Risk None identified. Assessment: 13:33 Reassessment: see triage assessment. tw2 14:40 Reassessment: Patient appears in no apparent distress at this time. Patient and/or tw2 family updated on plan of care and expected duration. Pain level reassessed. Patient is alert, oriented x 3, equal unlabored respirations, skin warm/dry/pink. Patient states feeling better. Patient states symptoms have improved. 14:41 Reassessment: pt and family member states "were doing good and ready to go home", tw2 provider notified. 14:45 Reassessment: provider at bedside at this time. tw2 14:56 Reassessment: Patient appears in no apparent distress at this time. Patient and/or tw2 family updated on plan of care and expected duration. Pain level reassessed. Patient is alert, oriented x 3, equal unlabored respirations, skin warm/dry/pink. Vital Signs: 12:51 Pulse 63; Resp 16; Temp 99.0; Pulse Ox 100% on R/A; iw 13:30 BP 110 / 58; Pulse 69; Resp 14 S; Pulse Ox 98% on R/A; aa5 14:41 BP 110 / 63; Pulse 65; Resp 17; Pulse Ox 100% on R/A; tw2 ED Course: 12:44 Patient arrived in ED. as 12:44 Rosy Henson FNP-C [facility]. kb 12:44 Rommel Winston DO is Attending Physician. kb 12:47 Myriam Conn, MICHAEL is Primary Nurse. tw2 12:47 Bed in low position. Call light in reach. Side rails up X2. Adult w/ patient. Cardiac tw2 monitor on. Pulse ox on. NIBP on. 12:50 Arm band placed on. tw2 12:53 Triage completed. iw 13:15 Inserted saline lock: 20 gauge in right antecubital area, using aseptic technique. zm Blood collected. 13:15 Basic Metabolic Panel Sent. zm 13:15 CBC with Diff Sent. zm 14:56 No provider procedures requiring assistance completed. IV discontinued, intact, tw2 bleeding controlled, No redness/swelling at site. Pressure dressing applied. Administered Medications: 13:21 Drug: NS 0.9% 1000 ml Route: IV; Rate: 1000 ml; Site: right antecubital; aa5 14:41 Follow up: Response: No adverse reaction; IV Status: Completed infusion; IV Intake: tw2 1000ml Medication: 14:10 VIS not applicable for this client. tw2 Intake: 14:41 IV: 1000ml; Total: 1000ml. tw2 Outcome: 14:47 Discharge ordered by MD. phelan 14:56 Discharged to home via wheelchair, with family. tw2 14:56 Condition: stable 14:56 Discharge instructions given to patient, family, Instructed on discharge instructions, follow up and referral plans. Demonstrated understanding of instructions, follow-up care. 14:57 Patient left the ED. tw2 Signatures: Rosy Henson, POLYSOMNOGRAPHY TECH-C POLYSOMNOGRAPHY TECH-Angely Lambert Irene, RN RN Mallika Roman RN RN aa5 Myriam Conn RN RN 2 Joan Ramires
[2021-10-28 15:10] VITALS: TEMP 99
[2021-10-28 15:14] VITALS: BP 110/63; O2SAT 100
== END 2021-10-28 14:57 | disposition home or self-care (01) ==
LOC: ER 12:43
DX: R55 Syncope and collapse (principal); R53.1 Weakness; E03.9 Hypothyroidism, unspecified
CPT/HCPCS: 85025; 80048; 36415; 96360; 99284; J7030

== ENCOUNTER 2022-04-27 21:16 | Emergency (ER) | payer BC ==
--- OUTSIDE RECORDS SUMMARY | 2022-04-27 21:22 | XMS REPORT | Continuity of Care Document ---
:1995 Author Organization [facility] t Address [address] [place] [address] [address]. [address] [place] [address] Care Team Providers Name Role Phone JADON BARRETT ESAUJENNABeckie Primary Care Physician Unavailable NESTOR VERA Attending Clinician Unavailable NESTOR VERA Attending Clinician Unavailable Nestor Vera MD Attending Clinician JUANPABLO PALMA Attending Clinician Unavailable Ruben Naranjo RN Attending Clinician Unavailable BETTE WOLFF Attending Clinician Unavailable Bette Wolff MD Attending Clinician LEISA HUGHES Attending Clinician Unavailable LESIA HUGHES Attending Clinician Unavailable Ginger Vee PA-C Attending Clinician [facility] Attending Clinician Unavailable GINGER VEE Attending Clinician Unavailable TONJA PARHAM Attending Clinician Unavailable Tonja Parham MD Attending Clinician PARI DUFFY Attending Clinician Unavailable Steven Jerome MD Attending Clinician Pari Vale Attending Clinician NIDA DUMONT Attending Clinician Unavailable Nida Dumont DO Attending Clinician Juanpablo Palma MD Attending Clinician [facility], [facility] Eeg Attending Clinician Unavailable Lab, [facility] - Db Attending Clinician Unavailable STEVEN JEROME Attending Clinician Unavailable Doctor Unassigned, [place] Attending Clinician Unavailable Provider, [facility] Attending Clinician Unavailable Surya Chapman MD Attending Clinician SURYA CHAPMAN Attending Clinician Unavailable WILLIAM STEVENS Attending Clinician Unavailable Steven Jacob Attending Clinician STEVEN PORTILLO Attending Clinician Unavailable BETTE WOLFF Admitting Clinician Unavailable Bette Wolff MD Admitting Clinician NESTOR VERA Admitting Clinician Unavailable JADON BARRETT Admitting Clinician Unavailable Payers Payer Name Policy Type Policy Number Effective Date Expiration Date S jorge BC OF [employer] - [id number] 2020 00:00:00 OUT OF STATE Problems Condition Condition Condition Status Onset Resolution Last Treating Co mments Source Name Details Category Date Date Treatment Clinician Date Anxiety Anxiety Disease Active 2021-05 Univers 05-17 ity of 00:00: [address] 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-17 ity of stress stress 00:00: [place] disorder disorder 00 Medica l (PTSD) (PTSD) [place] Seizure-li Seizure-li Disease Active 2021-05 U nivers ke ke 0-31 ity of activity activity 00:00: [address] Obesity Obesity Disease Active 2021-05 Univers (BMI (BMI 0-31 ity of 30-39.9) 30-39.9) 00:00: [address] No known No known Disease Unive rs active active ity of problems problems [facility] Allergies, Adverse Reactions, Alerts Allergy Allergy Status Severity Reaction(s) Onset Inactive Treating Comm ents Source Name Type Date Date Clinician NO KNOWN Drug Active Univers ALLERGIE Class ity of S [facility] Social History Social Habit Start Date Stop Date Quantity Comments Source History [facility] Food 2022-03-18 2022-03-18 1 Univers ity of Worry 00:00:00 00:00:00 [facility] History [facility] Food 2022-03-18 2022-03-18 1 Univers ity of Scarcity 00:00:00 00:00:00 [place] Medical [place] History SDOH 2022-03-18 2022-03-18 2 University o f Transport Med 00:00:00 00:00:00 [facility] al Branch History [facility] 2022-03-18 2022-03-18 2 University o f Transport Non-Med 00:00:00 00:00:00 [facility] Branch Exposure to 2022-03-05 2022-03-15 Not sure [facility] SARS-CoV-2 00:00:00 07:46:00 [facility] (event) Branch Tobacco use and 2020-05-28 2020-05-28 Smokeless tobacco Un iversity of exposure 00:00:00 00:00:00 non-user [facility] Sex Assigned At [birth year] Universit y of 00:00:00 00:00:00 [facility] Smoking Status Start Date Stop Date Source Never smoked tobacco [facility] Medications Ordered Filled Start Stop Current Ordering Indication Dosage Frequency Signature Comments Components Source Medication Medication Date Date Medication? Clinician (SIG) Name Name SERTraline 2021-05 Yes 25mg 25 mg, Unive rs (ZOLOFT) 1-03 Oral, ity of tablet 25 15:15: DAILY, [place] mg 00 First dose Medical on [facility] Branch 03/17/22 at 1015, Until Discontinu ed, Routine divalproex 2021-05 Yes 1000mg Take 1,000 Univers sodium 1-03 mg by ity of (DEPAKOTE 12:33: mouth [place] ORAL) 04 daily. [facility] Branch divalproex 2021-05 Yes 1000mg Take 1,000 Univers sodium 1-03 mg by ity of (DEPAKOTE 12:33: mouth [place] ORAL) 04 daily. [facility] Branch divalproex 2021-05 Yes 1000mg Take 1,000 Univers sodium 1-03 mg by ity of (DEPAKOTE 12:33: mouth [place] ORAL) 04 daily. [facility] Branch divalproex 2021-05 Yes 1000mg Take 1,000 Univers sodium 1-03 mg by ity of (DEPAKOTE 12:33: mouth [place] ORAL) 04 daily. [facility] Branch divalproex 2021-05 Yes 1000mg Take 1,000 Univers sodium 1-03 mg by ity of (DEPAKOTE 12:33: mouth [place] ORAL) 04 daily. [facility] Branch divalproex 2021-05 Yes 1000mg Take 1,000 Univers sodium 1-03 mg by ity of (DEPAKOTE 12:33: mouth [place] ORAL) 04 daily. [facility] Branch SERTraline 2021-05- Yes [id number] 25mg Take 1 Univers 25 mg 1-03 05-03 tablet by ity of tablet 00:00: 04:59 mouth in [place] 00 :00 the [facility] for 180 days. SERTraline 2021-05- Yes [id number] 25mg Take 1 Univers 25 mg 1-03 05-03 tablet by ity of tablet 00:00: 04:59 mouth in [place] 00 :00 the [facility] for 180 days. SERTraline 2021-05- Yes [id number] 25mg Take 1 Univers 25 mg 1-03 05-03 tablet by ity of tablet 00:00: 04:59 mouth in [place] 00 :00 the [facility] for 180 days. SERTraline 2021-05- Yes [id number] 25mg Take 1 Univers 25 mg 1-03 05-03 tablet by ity of tablet 00:00: 04:59 mouth in [place] 00 :00 the [facility] for 180 days. SERTraline 2021-05- Yes [id number] 25mg Take 1 Univers 25 mg 1-03 05-03 tablet by ity of tablet 00:00: 04:59 mouth in [place] 00 :00 the [facility] for 180 days. SERTraline 2021-05- Yes [id number] 25mg Take 1 Univers 25 mg 1-03 05-03 tablet by ity of tablet 00:00: 04:59 mouth in [place] 00 :00 [facility] for 180 days. alum-mag 2021-05 Yes 30mL 30 mL, Univers hydroxide-s 1-02 Oral, ity of imeth 00:37: [facility], [place] (MAALOX 54 Starting Medical PLUS / on Mon Branch MAG-AL 03/15/22 at PLUS) 1937, 200-200-20 Until mg/5 mL Discontinu suspension ed, 30 mL Routine, Indigestio n heparin 2021-05 Yes 5000U 5,000 Univers (porcine) 1-01 Units, ity of injection 01:00[place] 5,000 Units 00 us, Q12H, Med ical First dose Branch on Mon03/14/22 at 2000, Until Discontinu ed, Routine acetaminoph 2021-05 Yes 650mg 650 mg, Un mandy en 0-31 Oral, ity of (TYLENOL) 16:01: Q6HPRN, [place] tablet 650 19 Starting Medic al mg on Mon Branch 03/14/22 at 1101, Until Discontinu ed, Routine, Pain (scale 1-3) LORazepam 2021-05 Yes 2mg 2 mg, Slow Un mandy (ATIVAN) 0-31 IV Push, ity of injection 2 16:00: PRN - [place] mg 02 INSTRUCT Medical NS, 2 Branch doses, Starting on Mon03/14/22 at 1100, Until Discontinu ed, STAT, For seizure lasting two minutes or longer. NaCl 0.9% 2021- No 1000mL at 999 Uni vers (NS) bolus 02-04 09-24 mL/hr, ity of infusion 22:45: 00:52 1,000 mL, [place] as 1,000 mL 00 :00 IV Medical Infusion, Branch ONCE, 1 dose, On Mon02/04/22 at 1745, STAT diclofenac 0 Yes [id number] 75mg Take 1 Univers 75 mg EC 02-04 [id number] tablet by ity of tablet 00:00: mouth in [place] 00 the morning Branch and 1 tablet in the evening. Take with meals. acetaminoph Yes [id number] 650mg Take 1 Univers en (TYLENOL 02-04 [id number] tablet by i ty of ARTHRITIS 00:00: mouth [place] PAIN) 650 00 every 8 Medical mg CR (eight) Branch tablet hours as needed for Pain. gabapentin Yes [id number] 100mg Take 1 Univers (NEURONTIN) 02-04 [id number] capsule by ity of 100 mg 00:00: mouth in [place] capsule 00 the morning Branch and 1 capsule at noon and 1 capsule in the evening. cholecalcif Yes [id number] 1{capsu Take 1 Univers johann, 02-04 [id number] le} capsule by ity of vitamin D3, 00:00: mouth [place] (VITAMIN 00 daily. Medical D3) 100 mcg Branch (4,000 unit) Cap diclofenac 0 Yes [id number] 75mg Take 1 Univers 75 mg EC 02-04 [id number] tablet by ity of tablet 00:00: mouth in [place] 00 the morning Branch and 1 tablet in the evening. Take with meals. acetaminoph 0 Yes [id number] 650mg Take 1 Univers en (TYLENOL 02-04 [id number] tablet by i ty of ARTHRITIS 00:00: mouth [place] PAIN) 650 00 every 8 Medical mg CR (eight) Branch tablet hours as needed for Pain. gabapentin 2021-0 Yes [id number] 100mg Take 1 Univers (NEURONTIN) 02-04 [id number] capsule by ity of 100 mg 00:00: mouth in [place] capsule 00 the Medical morning Branch and 1 capsule at noon and 1 capsule in the evening. cholecalcif 2021-0 Yes [id number] 1{capsu Take 1 Univers johann, 02-04 [id number] le} capsule by ity of vitamin D3, 00:00: mouth [place] (VITAMIN 00 daily. Medical D3) 100 mcg Branch (4,000 unit) Cap diclofenac 2021-0 Yes [id number] 75mg Take 1 Univers 75 mg EC 02-04 [id number] tablet by ity of tablet 00:00: mouth in [place] 00 the Medical morning Branch and 1 tablet in the evening. Take with meals. acetaminoph 2021-0 Yes [id number] 650mg Take 1 Univers en (TYLENOL 02-04 [id number] tablet by i ty of ARTHRITIS 00:00: mouth [place] PAIN) 650 00 every 8 Medical mg CR (eight) Branch tablet hours as needed for Pain. gabapentin 2021-0 Yes [id number] 100mg Take 1 Univers (NEURONTIN) 02-04 [id number] capsule by ity of 100 mg 00:00: mouth in [place] capsule 00 the morning Branch and 1 capsule at noon and 1 capsule in the evening. cholecalcif 2021-0 Yes [id number] 1{capsu Take 1 Univers johann, 02-04 [id number] le} capsule by ity of vitamin D3, 00:00: mouth [place] (VITAMIN 00 daily. Medical D3) 100 mcg Branch (4,000 unit) Cap diclofenac 2021-0 Yes [id number] 75mg Take 1 Univers 75 mg EC 02-04 [id number] tablet by ity of tablet 00:00: mouth in [place] 00 the Medical morning Branch and 1 tablet in the evening. Take with meals. acetaminoph 2021-0 Yes [id number] 650mg Take 1 Univers en (TYLENOL 02-04 [id number] tablet by i ty of ARTHRITIS 00:00: mouth [place] PAIN) 650 00 every 8 Medical mg CR (eight) Branch tablet hours as needed for Pain. gabapentin 2021-0 Yes [id number] 100mg Take 1 Univers (NEURONTIN) 02-04 [id number] capsule by ity of 100 mg 00:00: mouth in [place] capsule 00 the Medical morning Branch and 1 capsule at noon and 1 capsule in the evening. cholecalcif 2021-0 Yes [id number] 1{capsu Take 1 Univers johann, 02-04 [id number] le} capsule by ity of vitamin D3, 00:00: mouth [place] (VITAMIN 00 daily. Medical D3) 100 mcg Branch (4,000 unit) Cap diclofenac 2-0 Yes [id number] 75mg Take 1 Univers 75 mg EC 02-04 [id number] tablet by ity of tablet 00:00: mouth in [place] 00 the Medical morning Branch and 1 tablet in the evening. Take with meals. acetaminoph 202-0 Yes [id number] 650mg Take 1 Univers en (TYLENOL 02-04 [id number] tablet by i ty of ARTHRITIS 00:00: mouth [place] PAIN) 650 00 every 8 Medical mg CR (eight) Branch tablet hours as needed for Pain. gabapentin 2021-0 Yes [id number] 100mg Take 1 Univers (NEURONTIN) 02-04 [id number] capsule by ity of 100 mg 00:00: mouth in [place] capsule 00 the Medical morning Branch and 1 capsule at noon and 1 capsule in the evening. cholecalcif 2021-0 Yes [id number] 1{capsu Take 1 Univers johann, 02-04 [id number] le} capsule by ity of vitamin D3, 00:00: mouth [place] (VITAMIN 00 daily. Medical D3) 100 mcg Branch (4,000 unit) Cap diclofenac 2021-0 Yes [id number] 75mg Take 1 Univers 75 mg EC 02-04 [id number] tablet by ity of tablet 00:00: mouth in [place] 00 the Medical morning Branch and 1 tablet in the evening. Take with meals. acetaminoph 2022-0 Yes [id number] 650mg Take 1 Univers en (TYLENOL 02-04 [id number] tablet by i ty of ARTHRITIS 00:00: mouth [place] PAIN) 650 00 every 8 Medical mg CR (eight) Branch tablet hours as needed for Pain. gabapentin 2-0 Yes [id number] 100mg Take 1 Univers (NEURONTIN) 9 [id number] capsule by ity of 100 mg 00:00: mouth in [place] capsule 00 the Medical morning Branch and 1 capsule at noon and 1 capsule in the evening. cholecalcif 2021-0 Yes [id number] 1{capsu Take 1 Univers johann, 02-04 [id number] le} capsule by ity of vitamin D3, 00:00: mouth [place] (VITAMIN 00 daily. Medical D3) 100 mcg Branch (4,000 unit) Cap diclofenac 2021-0 Yes [id number] 75mg Take 1 Univers 75 mg EC 02-04 [id number] tablet by ity of tablet 00:00: mouth in [place] 00 the Medical morning Branch and 1 tablet in the evening. Take with meals. acetaminoph 2021-0 Yes [id number] 650mg Take 1 Univers en (TYLENOL 02-04 [id number] tablet by i ty of ARTHRITIS 00:00: mouth [place] PAIN) 650 00 every 8 Medical mg CR (eight) Branch tablet hours as needed for Pain. gabapentin 2021-0 Yes [id number] 100mg Take 1 Univers (NEURONTIN) 02-04 [id number] capsule by ity of 100 mg 00:00: mouth in [place] capsule 00 the Medical morning Branch and 1 capsule at noon and 1 capsule in the evening. cholecalcif 2021-0 Yes [id number] 1{capsu Take 1 Univers johann, 02-04 [id number] le} capsule by ity of vitamin D3, 00:00: mouth [place] (VITAMIN 00 daily. Medical D3) 100 mcg Branch (4,000 unit) Cap diclofenac 2021-0 Yes [id number] 75mg Take 1 Univers 75 mg EC 02-04 [id number] tablet by ity of tablet 00:00: mouth in [place] 00 the Medical morning Branch and 1 tablet in the evening. Take with meals. acetaminoph 2021-0 Yes [id number] 650mg Take 1 Univers en (TYLENOL 02-04 [id number] tablet by i ty of ARTHRITIS 00:00: mouth [place] PAIN) 650 00 every 8 Medical mg CR (eight) Branch tablet hours as needed for Pain. gabapentin 2021-0 Yes [id number] 100mg Take 1 Univers (NEURONTIN) 9 [id number] capsule by ity of 100 mg 00:00: mouth in [place] capsule 00 the Medical morning Branch and 1 capsule at noon and 1 capsule in the evening. cholecalcif 2021-0 Yes [id number] 1{capsu Take 1 Univers johann, 02-04 [id number] le} capsule by ity of vitamin D3, 00:00: mouth [place] (VITAMIN 00 daily. Medical D3) 100 mcg Branch (4,000 unit) Cap diclofenac 2-0 Yes [id number] 75mg Take 1 Univers 75 mg EC 9- [id number] tablet by ity of tablet 00:00: mouth in [place] 00 the Medical morning Branch and 1 tablet in the evening. Take with meals. acetaminoph 2021-0 Yes [id number] 650mg Take 1 Univers en (TYLENOL 02-04 [id number] tablet by i ty of ARTHRITIS 00:00: mouth [place] PAIN) 650 00 every 8 Medical mg CR (eight) Branch tablet hours as needed for Pain. gabapentin 2021-0 Yes [id number] 100mg Take 1 Univers (NEURONTIN) 9 [id number] capsule by ity of 100 mg 00:00: mouth in [place] capsule 00 the Medical morning Branch and 1 capsule at noon and 1 capsule in the evening. cholecalcif 2021-0 Yes [id number] 1{capsu Take 1 Univers johann, 02-04 [id number] le} capsule by ity of vitamin D3, 00:00: mouth [place] (VITAMIN 00 daily. Medical D3) 100 mcg Branch (4,000 unit) Cap diclofenac 2021-0 Yes [id number] 75mg Take 1 Univers 75 mg EC 02-04 [id number] tablet by ity of tablet 00:00: mouth in [place] 00 the Medical morning Branch and 1 tablet in the evening. Take with meals. acetaminoph 2021-0 Yes [id number] 650mg Take 1 Univers en (TYLENOL 02-04 [id number] tablet by i ty of ARTHRITIS 00:00: mouth [place] PAIN) 650 00 every 8 Medical mg CR (eight) Branch tablet hours as needed for Pain. gabapentin 2021-0 Yes [id number] 100mg Take 1 Univers (NEURONTIN) 9 [id number] capsule by ity of 100 mg 00:00: mouth in [place] capsule 00 the Medical morning Branch and 1 capsule at noon and 1 capsule in the evening. cholecalcif 2022-0 Yes [id number] 1{capsu Take 1 Univers johann, 9 [id number] le} capsule by ity of vitamin D3, 00:00: mouth [place] (VITAMIN 00 daily. Medical D3) 100 mcg Branch (4,000 unit) Cap diclofenac 2-0 Yes [id number] 75mg Take 1 Univers 75 mg EC 9 [id number] tablet by ity of tablet 00:00: mouth in [place] 00 the Medical morning Branch and 1 tablet in the evening. Take with meals. acetaminoph 2022-0 Yes [id number] 650mg Take 1 Univers en (TYLENOL 02-04 [id number] tablet by i ty of ARTHRITIS 00:00: mouth [place] PAIN) 650 00 every 8 Medical mg CR (eight) Branch tablet hours as needed for Pain. gabapentin 2022-0 Yes [id number] 100mg Take 1 Univers (NEURONTIN) 9 [id number] capsule by ity of 100 mg 00:00: mouth in [place] capsule 00 the Medical morning Branch and 1 capsule at noon and 1 capsule in the evening. cholecalcif 2022-0 Yes [id number] 1{capsu Take 1 Univers johann, 02-04 [id number] le} capsule by ity of vitamin D3, 00:00: mouth [place] (VITAMIN 00 daily. Medical D3) 100 mcg Branch (4,000 unit) Cap diclofenac 2022-0 Yes [id number] 75mg Take 1 Univers 75 mg EC 02-04 [id number] tablet by ity of tablet 00:00: mouth in [place] 00 the [facility] morning [place] and 1 tablet in the evening. Take with meals. acetaminoph 202-0 Yes [id number] 650mg Take 1 Univers en (TYLENOL 02-04 [id number] tablet by i ty of ARTHRITIS 00:00: mouth [place] PAIN) 650 00 every 8 Medical mg CR (eight) Branch tablet hours as needed for Pain. gabapentin 2021-0 Yes [id number] 100mg Take 1 Univers (NEURONTIN) 9 [id number] capsule by ity of 100 mg 00:00: mouth in [place] capsule the [facility] morning Branch and 1 capsule at noon and 1 capsule in the evening. cholecalcif 2022-0 Yes [id number] 1{capsu Take 1 Univers johann, 02-04 [id number] le} capsule by ity of vitamin D3, 00:00: mouth [place] (VITAMIN 00 daily. Medical D3) 100 mcg Branch (4,000 unit) Cap diclofenac 2022-0 Yes [id number] 75mg Take 1 Univers 75 mg EC 02-04 [id number] tablet by ity of tablet 00:00: mouth in [place] 00 the Medical morning [place] and 1 tablet in the evening. Take with meals. acetaminoph 2022-0 Yes [id number] 650mg Take 1 Univers en (TYLENOL 02-04 [id number] tablet by i ty of ARTHRITIS 00:00: mouth [place] PAIN) 650 00 every 8 Medical mg CR (eight) Branch tablet hours as needed for Pain. gabapentin 2021-0 Yes [id number] 100mg Take 1 Univers (NEURONTIN) 02-04 [id number] capsule by ity of 100 mg 00:00: mouth in [place] capsule 00 the Medical morning Branch and 1 capsule at noon and 1 capsule in the evening. cholecalcif 2021-0 Yes [id number] 1{capsu Take 1 Univers johann, 02-04 [id number] le} capsule by ity of vitamin D3, 00:00: mouth [place] (VITAMIN 00 daily. Medical D3) 100 mcg Branch (4,000 unit) Cap diclofenac 2021-0 Yes [id number] 75mg Take 1 Univers 75 mg EC 02-04 [id number] tablet by ity of tablet 00:00: mouth in [place] 00 the Medical morning Branch and 1 tablet in the evening. Take with meals. acetaminoph 2021-0 Yes [id number] 650mg Take 1 Univers en (TYLENOL 02-04 [id number] tablet by i ty of ARTHRITIS 00:00: mouth [place] PAIN) 650 00 every 8 Medical mg CR (eight) Branch tablet hours as needed for Pain. gabapentin 2021-0 Yes [id number] 100mg Take 1 Univers (NEURONTIN) 02-04 [id number] capsule by ity of 100 mg 00:00: mouth in [place] capsule 00 the Medical morning Branch and 1 capsule at noon and 1 capsule in the evening. cholecalcif 2021-0 Yes [id number] 1{capsu Take 1 Univers johann, 02-04 [id number] le} capsule by ity of vitamin D3, 00:00: mouth [place] (VITAMIN 00 daily. Medical D3) 100 mcg Branch (4,000 unit) Cap diclofenac 2021-0 Yes [id number] 75mg Take 1 Univers 75 mg EC 02-04 [id number] tablet by ity of tablet 00:00: mouth in [place] 00 the Medical morning Branch and 1 tablet in the evening. Take with meals. acetaminoph 2022-0 Yes [id number] 650mg Take 1 Univers en (TYLENOL 02-04 [id number] tablet by i ty of ARTHRITIS 00:00: mouth [place] PAIN) 650 00 every 8 Medical mg CR (eight) Branch tablet hours as needed for Pain. gabapentin 2021-0 Yes [id number] 100mg Take 1 Univers (NEURONTIN) 02-04 [id number] capsule by ity of 100 mg 00:00: mouth in [place] capsule 00 the Medical morning Branch and 1 capsule at noon and 1 capsule in the evening. cholecalcif 2021-0 Yes [id number] 1{capsu Take 1 Univers johann, 02-04 [id number] le} capsule by ity of vitamin D3, 00:00: mouth [place] (VITAMIN 00 daily. Medical D3) 100 mcg Branch (4,000 unit) Cap diclofenac 2021-0 Yes [id number] 75mg Take 1 Univers 75 mg EC 02-04 [id number] tablet by ity of tablet 00:00: mouth in [place] 00 the Medical morning Branch and 1 tablet in the evening. Take with meals. acetaminoph 2021-0 Yes [id number] 650mg Take 1 Univers en (TYLENOL 02-04 [id number] tablet by i ty of ARTHRITIS 00:00: mouth [place] PAIN) 650 00 every 8 Medical mg CR (eight) Branch tablet hours as needed for Pain. gabapentin 2021-0 Yes [id number] 100mg Take 1 Univers (NEURONTIN) 02-04 [id number] capsule by ity of 100 mg 00:00: mouth in [place] capsule 00 the Medical morning Branch and 1 capsule at noon and 1 capsule in the evening. cholecalcif 2021-0 Yes [id number] 1{capsu Take 1 Univers johann, 02-04 [id number] le} capsule by ity of vitamin D3, 00:00: mouth [place] (VITAMIN 00 daily. Medical D3) 100 mcg Branch (4,000 unit) Cap diclofenac 2021-0 Yes [id number] 75mg Take 1 Univers 75 mg EC 02-04 [id number] tablet by ity of tablet 00:00: mouth in [place] 00 the Medical morning Branch and 1 tablet in the evening. Take with meals. acetaminoph 2022-0 Yes [id number] 650mg Take 1 Univers en (TYLENOL 02-04 [id number] tablet by i ty of ARTHRITIS 00:00: mouth [place] PAIN) 650 00 every 8 Medical mg CR (eight) Branch tablet hours as needed for Pain. gabapentin 2021-0 Yes [id number] 100mg Take 1 Univers (NEURONTIN) 9 [id number] capsule by ity of 100 mg 00:00: mouth in [place] capsule 00 the Medical morning Branch and 1 capsule at noon and 1 capsule in the evening. cholecalcif 2021-0 Yes [id number] 1{capsu Take 1 Univers johann, 02-04 [id number] le} capsule by ity of vitamin D3, 00:00: mouth [place] (VITAMIN 00 daily. Medical D3) 100 mcg Branch (4,000 unit) Cap diclofenac 2021-0 Yes [id number] 75mg Take 1 Univers 75 mg EC 02-04 [id number] tablet by ity of tablet 00:00: mouth in [place] 00 the Medical morning Branch and 1 tablet in the evening. Take with meals. acetaminoph 2021-0 Yes [id number] 650mg Take 1 Univers en (TYLENOL 02-04 [id number] tablet by i ty of ARTHRITIS 00:00: mouth [place] PAIN) 650 00 every 8 Medical mg CR (eight) Branch tablet hours as needed for Pain. gabapentin 2021-0 Yes [id number] 100mg Take 1 Univers (NEURONTIN) 02-04 [id number] capsule by ity of 100 mg 00:00: mouth in [place] capsule 00 the Medical morning Branch and 1 capsule at noon and 1 capsule in the evening. cholecalcif 2021-0 Yes [id number] 1{capsu Take 1 Univers johann, 02-04 [id number] le} capsule by ity of vitamin D3, 00:00: mouth [place] (VITAMIN 00 daily. Medical D3) 100 mcg Branch (4,000 unit) Cap diclofenac 2021-0 Yes [id number] 75mg Take 1 Univers 75 mg EC 02-04 [id number] tablet by ity of tablet 00:00: mouth in [place] 00 the Medical morning Branch and 1 tablet in the evening. Take with meals. acetaminoph 2021-0 Yes [id number] 650mg Take 1 Univers en (TYLENOL 02-04 [id number] tablet by i ty of ARTHRITIS 00:00: mouth [place] PAIN) 650 00 every 8 Medical mg CR (eight) Branch tablet hours as needed for Pain. gabapentin 2021-0 Yes [id number] 100mg Take 1 Univers (NEURONTIN) 9 [id number] capsule by ity of 100 mg 00:00: mouth in [place] capsule 00 the Medical morning Branch and 1 capsule at noon and 1 capsule in the evening. cholecalcif 2021-0 Yes [id number] 1{capsu Take 1 Univers johann, 02-04 [id number] le} capsule by ity of vitamin D3, 00:00: mouth [place] (VITAMIN 00 daily. Medical D3) 100 mcg Branch (4,000 unit) Cap diclofenac 2021-0 Yes [id number] 75mg Take 1 Univers 75 mg EC 02-04 [id number] tablet by ity of tablet 00:00: mouth in [place] 00 the Medical morning Branch and 1 tablet in the evening. Take with meals. acetaminoph 2021-0 Yes [id number] 650mg Take 1 Univers en (TYLENOL 02-04 [id number] tablet by i ty of ARTHRITIS 00:00: mouth [place] PAIN) 650 00 every 8 Medical mg CR (eight) Branch tablet hours as needed for Pain. gabapentin 2021-0 Yes [id number] 100mg Take 1 Univers (NEURONTIN) 02-04 [id number] capsule by ity of 100 mg 00:00: mouth in [place] capsule 00 the Medical morning Branch and 1 capsule at noon and 1 capsule in the evening. cholecalcif 2021-0 Yes [id number] 1{capsu Take 1 Univers johann, 02-04 [id number] le} capsule by ity of vitamin D3, 00:00: mouth [place] (VITAMIN 00 daily. Medical D3) 100 mcg Branch (4,000 unit) Cap divalproex 0 Yes 1000mg Take 1,000 Univers sodium 9-18 mg by ity of (DEPAKOTE 20:56: mouth [place] ORAL) 30 daily. Medical Branch divalproex 0 Yes 1000mg Take 1,000 Univers sodium 9-18 mg by ity of (DEPAKOTE 20:56: mouth [place] ORAL) 30 daily. Medical Branch divalproex 0 Yes 1000mg Take 1,000 Univers sodium 9-18 mg by ity of (DEPAKOTE 20:56: mouth [place] ORAL) 30 daily. Medical Branch divalproex 0 Yes 1000mg Take 1,000 Univers sodium 9-18 mg by ity of (DEPAKOTE 20:56: mouth [place] ORAL) 30 daily. Medical Branch divalproex 202-0 Yes 1000mg Take 1,000 Univers sodium 9-18 mg by ity of (DEPAKOTE 20:56: mouth [place] ORAL) 30 daily. Medical Branch divalproex 2021-0 Yes 1000mg Take 1,000 Univers sodium 9-18 mg by ity of (DEPAKOTE 20:56: mouth [place] ORAL) 30 daily. Medical Branch divalproex 0 Yes 1000mg Take 1,000 Univers sodium 9-18 mg by ity of (DEPAKOTE 20:56: mouth [place] ORAL) 30 daily. Medical Branch divalproex 0 Yes 1000mg Take 1,000 Univers sodium 9-18 mg by ity of (DEPAKOTE 20:56: mouth [place] ORAL) 30 daily. Medical Branch divalproex 0 Yes 1000mg Take 1,000 Univers sodium 9-18 mg by ity of (DEPAKOTE 20:56: mouth [place] ORAL) 30 daily. Medical Branch divalproex 0 Yes 1000mg Take 1,000 Univers sodium 9-18 mg by ity of (DEPAKOTE 20:56: mouth [place] ORAL) 30 daily. Medical Branch divalproex 0 Yes 1000mg Take 1,000 Univers sodium 9-18 mg by ity of (DEPAKOTE 20:56: mouth [place] ORAL) 30 daily. Medical Branch divalproex 0 Yes 1000mg Take 1,000 Univers sodium 9-18 mg by ity of (DEPAKOTE 20:56: mouth [place] ORAL) 30 daily. Medical Branch divalproex 0 Yes 1000mg Take 1,000 Univers sodium 9-18 mg by ity of (DEPAKOTE 20:56: mouth [place] ORAL) 30 daily. Medical Branch divalproex Yes 1000mg Take 1,000 Univers sodium 9-18 mg by ity of (DEPAKOTE 20:56: mouth [place] ORAL) 30 daily. Medical Branch divalproex Yes 1000mg Take 1,000 Univers sodium 9-18 mg by ity of (DEPAKOTE 20:56: mouth [place] ORAL) 30 daily. Medical Branch divalproex 0 Yes 1000mg Take 1,000 Univers sodium 9-18 mg by ity of (DEPAKOTE 20:56: mouth [place] ORAL) 30 daily. Medical Branch dexAMETHaso 2021-2021- No [id number] 1mg Take 1 Univers ne 1 mg 01-24 tablet by ity of tablet 00:00: 04:[place] now for 1 Medical dose. Branch dexAMETHaso 2021- No [id number] 1mg Take 1 Univers ne 1 mg 01-24 tablet by [place]y of tablet 00:00: 04:[place] now for 1 Medical dose. Branch metoclopram 2020-0 2- No [id number] 1 tab Univers luis HCl 10 11-23-18 every 4hr ity of mg tablet 00:00: [place] :[place] for nausea Medical Branch metoclopram 2020-0 2- No [id number] 1 tab Univers luis HCl 10 11-2318 every 4hr ity of mg tablet 00:00: [place] for nausea Medical Branch metoclopram 2020-0 2021- No [id number] 1 tab Univers luis HCl 10 11-2318 every 4hr ity of mg tablet 00:00: [place] :[place] for nausea Medical Branch metoclopram 2020-0 2- No [id number] 1 tab Univers luis HCl 10 11-2318 every 4hr ity of mg tablet 00:00: [place] :[place] for nausea Medical Branch metoclopram 2020-0 2- No [id number] 1 tab Univers luis HCl 10 11-2318 every 4hr ity of mg tablet 00:00: 00:[place] 00 :[place] for nausea Medical Branch SERTraline 2020-0 Yes 200mg Take 200 Un mandy 50 mg 6-07 mg by ity of tablet 00:00: mouth in [place] 00 the Medical morning. Branch SERTraline 2020-0 Yes 200mg Take 200 Un mandy 50 mg 6-07 mg by ity of tablet 00:00: mouth in [place] 00 the Medical morning. Branch SERTraline 2020-0 Yes 200mg Take 200 Un mandy 50 mg 6-07 mg by ity of tablet 00:00: mouth in [place] 00 the Medical morning. Branch SERTraline 2020-0 Yes 200mg Take 200 Un mandy 50 mg 6-07 mg by ity of tablet 00:00: mouth in [place] 00 the Medical morning. Branch SERTraline 2020-0 Yes 200mg Take 200 Un mandy 50 mg 6-07 mg by ity of tablet 00:00: mouth in [place] 00 the Medical morning. Branch SERTraline 2021-0 Yes 200mg Take 200 Un mandy 50 mg 6-07 mg by ity of tablet 00:00: mouth in [place] 00 the Medical morning. Branch SERTraline 2021-0 Yes 200mg Take 200 Un mandy 50 mg 6-07 mg by ity of tablet 00:00: mouth in [place] 00 the Medical morning. Branch SERTraline 2021-0 Yes 200mg Take 200 Un mandy 50 mg 6-07 mg by ity of tablet 00:00: mouth in [place] 00 the Medical morning. Branch SERTraline 2021-0 Yes 200mg Take 200 Un mandy 50 mg 6-07 mg by ity of tablet 00:00: mouth in [place] 00 the Medical morning. Branch SERTraline 2021-0 Yes 200mg Take 200 Un mandy 50 mg 6-07 mg by ity of tablet 00:00: mouth in [place] 00 the Medical morning. Branch SERTraline 2021-0 Yes 200mg Take 200 Un mandy 50 mg 6-07 mg by ity of tablet 00:00: mouth in [place] 00 the Medical morning. Branch SERTraline 2021-0 2022- No 200mg Take 200 U nivers 50 mg 6-07 09-30 mg by ity of tablet 00:00: 00:00 mouth in [place] 00 :00 the Medical morning. Branch SERTraline 2021-0 2022- No 200mg Take 200 U nivers 50 mg 6-07 09-30 mg by ity of tablet 00:00: 00:00 mouth in [place] 00 :00 the Medical morning. Branch SERTraline 2021-0 2022- No 200mg Take 200 U nivers 50 mg 6-07 09-30 mg by ity of tablet 00:00: 00:00 mouth in [place] 00 :00 the Medical morning. Branch SERTraline 2021-0 2022- No 200mg Take 200 U nivers 50 mg 6-07 09-30 mg by ity of tablet 00:00: 00:00 mouth in [place] 00 :00 the Medical morning. Branch SERTraline 2021-0 2022- No 200mg Take 200 U nivers 50 mg 6-07 09-30 mg by ity of tablet 00:00: 00:00 mouth in [place] 00 :00 the Medical morning. Branch SERTraline 2021-0 2022- No 200mg Take 200 U nivers 50 mg 6- 09-30 mg by ity of tablet 00:00: 00:00 mouth in [place] 00 :00 the Medical morning. Branch levothyroxi 2020-0 2021- No 75ug Take 75 Un mandy ne 75 mcg 6- 09-18 mcg by ity of tablet 00:00: 00:00 mouth. [place] 00 :00 Medical Branch levothyroxi 2020-0 2021- No 75ug Take 75 Un mandy ne 75 mcg 6 09-18 mcg by ity of tablet 00:00: 00:00 mouth. [place] 00 :00 Medical Branch levothyroxi 2020-0 2021- No 75ug Take 75 Un mandy ne 75 mcg 6 09-18 mcg by ity of tablet 00:00: 00:00 mouth. [place] 00 :00 Medical Branch levothyroxi 2020-0 2021- No 75ug Take 75 Un mandy ne 75 mcg 6 09-18 mcg by ity of tablet 00:00: 00:00 mouth. [place] 00 :00 Medical Branch levothyroxi 2020-0 2021- No 75ug Take 75 Un mandy ne 75 mcg 6- 09-18 mcg by ity of tablet 00:00: 00:00 mouth. [place] 00 :00 Medical Branch hydrOXYzine 2020-0 2021- No TAKE 1 Uni vers 25 mg 4-16 09-18 TABLET BY ity of tablet 00:00: 00:00 MOUTH [place] 00 :00 TWICE Medical DAILY Branch NEEDED hydrOXYzine 2020-0 2021- No TAKE 1 Uni vers 25 mg 4-16 09-18 TABLET BY ity of tablet 00:00: 00:00 MOUTH [place] 00 :00 TWICE Medical DAILY Branch NEEDED hydrOXYzine 2020-0 2021- No TAKE 1 Uni vers 25 mg 4-16 09-18 TABLET BY ity of tablet 00:00: 00:00 MOUTH [place] 00 :00 TWICE Medical DAILY Branch NEEDED hydrOXYzine 2020-0 2021- No TAKE 1 Uni vers 25 mg 4-16 09-18 TABLET BY ity of tablet 00:00: 00:00 MOUTH [place] 00 :00 TWICE Medical DAILY Branch NEEDED hydrOXYzine 2020-0 2021- No TAKE 1 Uni vers 25 mg 4-16 09-18 TABLET BY ity of tablet 00:00: 00:00 MOUTH [place] 00 :00 TWICE Medical DAILY Branch NEEDED Immunizations Ordered Filled Immunization Date Status Comments [facility] e Immunization Name Name SARS-COV-2 COVID-19 2020-10-30 Completed Unive rsity of PFIZER VACCINE 00:00:00 [facility] SARS-COV-2 COVID-19 2020-10-30 Completed Unive rsity of PFIZER VACCINE 00:00:00 [facility] SARS-COV-2 COVID-19 2020-10-30 Completed Unive rsity of PFIZER VACCINE 00:00:00 [facility] SARS-COV-2 COVID-19 2020-10-30 Completed Unive rsity of PFIZER VACCINE 00:00:00 [facility] SARS-COV-2 COVID-19 2020-10-30 Completed Unive rsity of PFIZER VACCINE 00:00:00 [facility] SARS-COV-2 COVID-19 2020-10-30 Completed Unive rsity of PFIZER VACCINE 00:00:00 [facility] SARS-COV-2 COVID-19 2020-10-30 Completed Unive rsity of PFIZER VACCINE 00:00:00 [facility] SARS-COV-2 COVID-19 2020-10-30 Completed Unive rsity of PFIZER VACCINE 00:00:00 [facility] SARS-COV-2 COVID-19 2020-10-30 Completed Unive rsity of PFIZER VACCINE 00:00:00 [facility] SARS-COV-2 COVID-19 2020-10-30 Completed Unive rsity of PFIZER VACCINE 00:00:00 [facility] SARS-COV-2 COVID-19 2020-10-30 Completed Unive rsity of PFIZER VACCINE 00:00:00 [facility] SARS-COV-2 COVID-19 2020-10-30 Completed Unive rsity of PFIZER VACCINE 00:00:00 [facility] SARS-COV-2 COVID-19 2020-10-30 Completed Unive rsity of PFIZER VACCINE 00:00:00 [facility] SARS-COV-2 COVID-19 2020-10-30 Completed Unive rsity of PFIZER VACCINE 00:00:00 [facility] SARS-COV-2 COVID-19 2020-10-30 Completed Unive rsity of PFIZER VACCINE 00:00:00 [facility] SARS-COV-2 COVID-19 2020-10-30 Completed Unive rsity of PFIZER VACCINE 00:00:00 [facility] Branch SARS-COV-2 COVID-19 2020-10-30 Completed Unive rsity of PFIZER VACCINE 00:00:00 [facility] SARS-COV-2 COVID-19 2020-10-30 Completed Unive rsity of PFIZER VACCINE 00:00:00 [facility] Branch SARS-COV-2 COVID-19 2020-10-30 Completed Unive rsity of PFIZER VACCINE 00:00:00 [facility] Branch SARS-COV-2 COVID-19 2020-10-30 Completed Unive rsity of PFIZER VACCINE 00:00:00 [facility] Branch SARS-COV-2 COVID-19 2020-10-30 Completed Unive rsity of PFIZER VACCINE 00:00:00 [facility] SARS-COV-2 COVID-19 2020-10-30 Completed Unive rsity of PFIZER VACCINE 00:00:00 [facility] SARS-COV-2 COVID-19 2020-10-30 Completed Unive rsity of PFIZER VACCINE 00:00:00 [facility] SARS-COV-2 COVID-19 2020-10-30 Completed Unive rsity of PFIZER VACCINE 00:00:00 [facility] SARS-COV-2 COVID-19 2020-10-30 Completed Unive rsity of PFIZER VACCINE 00:00:00 [facility] SARS-COV-2 COVID-19 2020-10-30 Completed Unive rsity of PFIZER VACCINE 00:00:00 [facility] Branch SARS-COV-2 COVID-19 2020-10-30 Completed Unive rsity of PFIZER VACCINE 00:00:00 [facility] SARS-COV-2 COVID-19 2020-09-30 Completed Unive rsity of PFIZER VACCINE 00:00:00 [facility] SARS-COV-2 COVID-19 2020-09-30 Completed Unive rsity of PFIZER VACCINE 00:00:00 [facility] SARS-COV-2 COVID-19 2020-09-30 Completed Unive rsity of PFIZER VACCINE 00:00:00 [facility] SARS-COV-2 COVID-19 2020-09-30 Completed Unive rsity of PFIZER VACCINE 00:00:00 [facility] Branch SARS-COV-2 COVID-19 2020-09-30 Completed Unive rsity of PFIZER VACCINE 00:00:00 [facility] Branch SARS-COV-2 COVID-19 2020-09-30 Completed Unive rsity of PFIZER VACCINE 00:00:00 [facility] Branch SARS-COV-2 COVID-19 2020-09-30 Completed Unive rsity of PFIZER VACCINE 00:00:00 [facility] Branch SARS-COV-2 COVID-19 2020-09-30 Completed Unive rsity of PFIZER VACCINE 00:00:00 [facility] Branch SARS-COV-2 COVID-19 2020-09-30 Completed Unive rsity of PFIZER VACCINE 00:00:00 [facility] Branch SARS-COV-2 COVID-19 2020-09-30 Completed Unive rsity of PFIZER VACCINE 00:00:00 [facility] Branch SARS-COV-2 COVID-19 2020-09-30 Completed Unive rsity of PFIZER VACCINE 00:00:00 [facility] Branch SARS-COV-2 COVID-19 2020-09-30 Completed Unive rsity of PFIZER VACCINE 00:00:00 [facility] Branch SARS-COV-2 COVID-19 2020-09-30 Completed Unive rsity of PFIZER VACCINE 00:00:00 [facility] Branch SARS-COV-2 COVID-19 2020-09-30 Completed Unive rsity of PFIZER VACCINE 00:00:00 [facility] Branch SARS-COV-2 COVID-19 2020-09-30 Completed Unive rsity of PFIZER VACCINE 00:00:00 [facility] Branch SARS-COV-2 COVID-19 2020-09-30 Completed Unive rsity of PFIZER VACCINE 00:00:00 [facility] Branch SARS-COV-2 COVID-19 2020-09-30 Completed Unive rsity of PFIZER VACCINE 00:00:00 [facility] Branch SARS-COV-2 COVID-19 2020-09-30 Completed Unive rsity of PFIZER VACCINE 00:00:00 [facility] Branch SARS-COV-2 COVID-19 2020-09-30 Completed Unive rsity of PFIZER VACCINE 00:00:00 [facility] SARS-COV-2 COVID-19 2020-09-30 Completed Unive rsity of PFIZER VACCINE 00:00:00 [facility] SARS-COV-2 COVID-19 2020-09-30 Completed Unive rsity of PFIZER VACCINE 00:00:00 [facility] SARS-COV-2 COVID-19 2020-09-30 Completed Unive rsity of PFIZER VACCINE 00:00:00 [facility] SARS-COV-2 COVID-19 2020-09-30 Completed Unive rsity of PFIZER VACCINE 00:00:00 [facility] SARS-COV-2 COVID-19 2020-09-30 Completed Unive rsity of PFIZER VACCINE 00:00:00 [facility] SARS-COV-2 COVID-19 2020-09-30 Completed Unive rsity of PFIZER VACCINE 00:00:00 [facility] SARS-COV-2 COVID-19 2020-09-30 Completed Unive rsity of PFIZER VACCINE 00:00:00 [facility] SARS-COV-2 COVID-19 2020-09-30 Completed Unive rsity of PFIZER VACCINE 00:00:00 [facility] Vital Signs Vital Name Observation Time Observation Value Comments Source Systolic blood 2022-04-04 14:31:00 129 mm[Hg] Univer sity of pressure [facility] Diastolic blood 2022-04-04 14:31:00 83 mm[Hg] Unive rsity of pressure [facility] Heart rate 2022-04-04 14:31:00 89 /min [facility] Body height 2022-04-04 14:31:00 162.6 cm [facility] Body weight 2022-04-04 14:31:00 104.327 kg [facility] BMI 2022-04-04 14:31:00 39.48 kg/m2 [facility] Systolic blood 2022-03-17 12:44:00 118 mm[Hg] Univer sity of pressure [facility] Diastolic blood 2022-03-17 12:44:00 75 mm[Hg] Unive rsity of pressure [facility] Heart rate 2022-03-17 12:44:00 65 /min [facility] Body temperature 2022-03-17 12:44:00 36.56 Misti Univ ers[facility] [place] [facility] Respiratory rate 2022-03-17 12:44:00 16 /min Univ ers[facility] [place] [facility] Oxygen saturation in 2022-03-17 12:44:00 98 /min University of Arterial blood by [facility] nirmala Pulse oximetry Branch Body height 2022-03-14 17:00:00 162.6 cm [facility] [place] [facility] Body weight 2022-03-14 17:00:00 104.327 kg [facility] [place] [facility] BMI 2022-03-14 17:00:00 39.48 kg/m2 [facility] [place] [facility] Systolic blood 2022-02-11 13:03:00 103 mm[Hg] Univer sity of pressure [place] [facility] Diastolic blood 2022-02-11 13:03:00 73 mm[Hg] Unive rsity of pressure [place] [facility] Heart rate 2022-02-11 13:03:00 80 /min [facility] [place] [facility] Body height 2022-02-11 13:03:00 162.6 cm [facility] [place] [facility] Body weight 2022-02-11 13:03:00 104.327 kg [facility] [place] [facility] BMI 2022-02-11 13:03:00 39.48 kg/m2 [facility] [place] [facility] Oxygen saturation in 2022-02-11 13:03:00 98 /min University of Arterial blood by [facility] Pulse oximetry Branch Systolic blood 2022-02-07 20:49:00 106 mm[Hg] Univer sity of pressure [place] [facility] Diastolic blood 2022-02-07 20:49:00 68 mm[Hg] Unive rsity of pressure [place] [facility] Heart rate 2022-02-07 20:49:00 72 /min [facility] [place] [facility] Body temperature 2022-02-07 20:49:00 36.67 Misti [facility] [place] [facility] Respiratory rate 2022-02-07 20:49:00 18 /min Univ [facility] [place] [facility] Body height 2022-02-07 20:49:00 162.6 cm [facility] [place] [facility] Body weight 2022-02-07 20:49:00 104.69 kg [facility] [place] [facility] BMI 2022-02-07 20:49:00 39.62 kg/m2 [facility] [place] [facility] Oxygen saturation in 2022-02-07 20:49:00 100 /min University of Arterial blood by [place] [employer] nirmala Pulse oximetry Branch Systolic blood 2022-02-05 00:52:00 109 mm[Hg] Univer sity of pressure [place] [facility] Diastolic blood 2022-02-05 00:52:00 65 mm[Hg] Unive rsity of pressure [place] [facility] Heart rate 2022-02-05 00:52:00 62 /min [facility] [place] [facility] Respiratory rate 2022-02-05 00:52:00 16 /min Univ [facility] [place] [facility] Oxygen saturation in 2022-02-05 00:52:00 100 /min University of Arterial blood by [place] [employer] nirmala Pulse oximetry Branch Body temperature 2022-02-04 22:25:00 36.5 Misti [facility] [place] [facility] Body height 2022-02-04 22:25:00 162.6 cm [facility] [place] [facility] Body weight 2022-02-04 22:25:00 104.327 kg [facility] [place] [facility] BMI 2022-02-04 22:25:00 39.48 kg/m2 [facility] [place] [facility] Systolic blood 2022-02-04 15:53:00 114 mm[Hg] Univer sity of pressure [place] [facility] Diastolic blood 2022-02-04 15:53:00 83 mm[Hg] Unive rsity of pressure [place] [facility] Heart rate 2022-02-04 15:53:00 71 /min [facility] [place] [facility] Body height 2022-02-04 15:53:00 162.6 cm [facility] [place] [facility] Body weight 2022-02-04 15:53:00 104.055 kg [facility] [place] [facility] BMI 2022-02-04 15:53:00 39.38 kg/m2 [facility] [place] [facility] Oxygen saturation in 2022-02-04 15:53:00 99 /min [facility] of Arterial blood by [place] [employer] nirmala Pulse oximetry Branch Systolic blood 2022-01-24 20:47:00 107 mm[Hg] Univer sity of pressure [place] [facility] Diastolic blood 2022-01-24 20:47:00 71 mm[Hg] Unive rsity of pressure [place] [facility] Heart rate 2022-01-24 20:47:00 89 /min [facility] Body height 2022-01-24 20:47:00 162.6 cm [facility] Body weight 2022-01-24 20:47:00 104.554 kg [facility] BMI 2022-01-24 20:47:00 39.57 kg/m2 [facility] Oxygen saturation in 2022-01-24 20:47:00 97 /min [facility] Arterial blood by [facility] Pulse oximetry [place] Procedures Procedure Date / Time Performing Source Performed Clinician MR BRAIN WO CONTRAST 2022-02-17 [facility] 20:03:00 Gene [facility] RHEUMATOID FACTOR 2022-02-07 [facility] 21:39:00 [facility] C-REACTIVE PROTEIN 2022-02-07 [facility] 21:39:00 [facility] SEDIMENTATION RATE 2022-02-07 [facility] 21:39:00 [facility] VITAMIN D, 25-OH 2022-02-07 Ginger Vee [facility] 21:39:00 [facility] ANTI-NUCLEAR ANTIBODY SCREEN 2022-02-07 Ginger Vee [facility] 21:39:00 [facility] ANTI-NUCLEAR ANTIBODY TITER 2022-02-07 Ginger Vee [facility] 21:39:00 [facility] ANTI-NUCLEAR 2022-02-07 Ginger Vee [facility]a ANTIBODY-PATHOLOGIST 21:39:00 [facility] INTERPRETATION POCT TEST 2022-02-04 Prasad [facility] 23:26:00 [facility] URINE DRUG (IMMUNOASSAY) - 2022-02-[facility]PRE[facility] SCREEN 23:21:00 [facility] URINALYSIS 2022-02-04 Prasad [facility] 23:21:00 [facility] CREATINE KINASE 2022-02-04 Prasad [facility] 22:47:00 [facility] MAGNESIUM 2022-02-04 [facility] 22:47:00 [facility] TROPONIN I 2022-02-04 [facility] 22:47[facility]00 [facility] THYROID STIMULATING HORMONE 2022-02-04 Tonja Parham [facility] 22:47:00 [facility] COMP. METABOLIC PANEL ([id number]) 2022-02-04 Tonja Parham [facility] 22:47:00 [facility] CBC WITH DIFF 2022-02-04 [facility] [place] 22:47:00 [facility] D-DIMER 2022-02-04 [facility] [place] 22:47:00 [facility] ELECTROENCEPHALOGRAM 2022-01-27 [facility] 00:00:00 Medical Branch Encounters Start End Encounter Admission Attending Care Care Encounter Source Date/Time Date/Time Type Type Clinicians Facility Department ID 2022-04-04 2022-04-04 Outpatient NESTOR PATEL [facility] [id number] Univers 08:20:00 08:52:[address] [facility] 2022-04-04 2022-04-04 [facility] [id number] [facility] 08:20:00 08:52:34 Visit Nest[id number] [place] as ASTON?BLEA [id number] [address] MEDICAL OFFICE BUILDING 2022-03-21 2022-03-21 Outpatient JUANPABLO FUENTES [facility] [id number] Univers 08:30:00 [facility] 2022-03-18 2022-03-18 Telephone [place] [facility] [id number] Univers 00:00:00 00:00:00 [id number] [facility] [id number] [place] as ASTON?BLEA [id number] [address] MEDICAL OFFICE BUILDING 2022-03-18 2022-03-18 Transition TIMOTHY Naranjo [id number] Univers 00:00:00 00:00:00 of Care Ruben A CEJA [id number] [id number] [id number] [facility] 403 Branch 2022-03-18 2022-03-18 Telephone [facility] [id number] Univers 00:00:00 00:00:00 [facility] [id number] ity of [id number] [id number] [address] 2022-03-14 2022-03-17 Inpatient R [facility] [place] [id number] Univers 09:04:00 12:32:00 [facility] 2022-03-14 2022-03-17 [facility] KIM Wolff [id number] Univers 09:04:00 12:32:00 Encounter Bette [place] [id number] ity of [facility] [id number] Garrett as [id number] [facility] 098 Branch 2022-03-14 2022-03-14 Outpatient R ELLENLEISA [facility] [id number] Univers 11:30:00 11:30:[address] [facility] 2022-03-14 2022-03-14 Outpatient R ELLEN DE [place] [facility] [id number] Univers 11:30:00 11:30:00 [facility] DE [facility]E [facility] 2022-02-28 2022-02-28 Letter [facility] [id number] Univers 00:00:00 00:00:00 (Out) [facility] [id number] ity of [place] [id number] Garrett as ASTON?BLEA [id number] [address] MEDICAL OFFICE BUILDING 2022-02-25 2022-02-25 Telephone [facility] [id number] Univers 00:00:00 00:00:00 [facility] [id number] ity of [place] [id number] Garrett as ASTON?BLEA [id number] [facility] [address] MEDICAL OFFICE [facility] 2022-02-18 2022-02-18 Telephone [place] [facility] [id number] Univers 00:00:00 00:00:00 Nestor [facility] [id number] ity of [place] [id number] Garrett as ASTON?BLEA [id number] [facility] [address] OFFICE [facility] 2022-02-17 2022-02-17 Outpatient R NESTOR VREA [facility] [id number] Univers 14:06:52 23:59:00 NESTOR VERA itbeckie [facility] 2022-02-17 2022-02-17 [facility] [id number] Univers 14:06:52 23:59:00 Encounter Nestor [facility] [id number] ity of [place] [id number] [facility] [id number] [facility] 804 [place] 2022-02-11 2022-02-11 Outpatient R NESTOR VERA [facility] [id number] Univers 08:00:00 09:16:44 NESTOR VERA adrianobeckie [facility] 2022-02-11 2022-02-11 Office Chuy [facility] 1.2.840.114 [id number] Univers 08:00:00 09:16:44 Visit Nestor [facility] 350.1.13.10 ity of [place] 4.2.7.2.686 Garrett as ASTON?BLEA [phone] Oh gwen[address] OFFICE [facility] 2022-02-09 2022-02-09 Patient Mariusz [facility] 1.2.840.114 [id number] Univers 00:00:00 00:00:00 Secure Msg Ginger Robert MULTISPEC 350.1.13.10 ity of [place] 4.2.7.2.686 [facility] [phone] [facility] [address] [facility] 2022-02-07 2022-02-07 Core Machine Tender Vtc-Lab [facility] 1.2.840.114 [id number] Univers 16:45:00 17:00:00 Visit Ginger Vee 350.1.13.10 ity of [place] 4.2.7.2.686 [facility] [phone] [facility] [address] DIABETES [facility] 2022-02-07 2022-02-07 Outpatient R MARIUSZ [facility] [id number] Univers 15:45:00 16:29:27 GINGER riley [facility] 2022-02-07 2022-02-07 [facility] 1.2.840.114 [id number] Univers 15:45:00 16:29:27 Visit Ginger TREVINO 350.1.13.10 ity of [place] 4.2.7.2.686 [facility] [phone] [address] DIABETES [facility] 2022-02-04 2022-02-04 Emergency X PRASAD [facility] ERT [id number] Univers 17:20:00 20:47:00 TONJA riley [facility] 2022-02-04 2022-02-04 [facility] 1.2.840.114 [id number] Univers 17:20:00 20:47:00 Tonja MARCANO 350.1.13.10 i ty isma ALEJANDRO 4.2.7.2.686 [facility] [phone] [address] 2022-02-04 2022-02-04 Outpatient R PRACHI [facility] [id number] Univers 11:00:00 12:52:07 PARI riley [facility] 2022-02-04 2022-02-04 Office Steven Jerome [facility] 1.2.840. 114 [id number] Univers 11:00:00 12:52:07 Visit Pari Duffy [facility] 350.1.13.10 itLetty 4.2.7.2.686 Garrett as ASTON?BLEA [phone] Oh trinity [address] MEDICAL OFFICE [facility] 2022-01-30 2022-01-30 Emergency X JULIA [facility] ERT [id number] Univers 20:10:00 20:56:00 NIDA riley [facility] 2022-01-30 2022-01-30 Emergency [facility] 1.2.840.114 [id number] Univers 20:10:00 20:56:00 Nida MARCANO 350.1.13.10 ity [place] [phone] [facility] [address] 2022-01-28 2022-01-28 Telephone Juanpablo Palma [facility] 1.2.840.114 [id number] Univers 00:00:00 00:00:00 S HEALTH 350.1.13.10 it y of [place] 4.2.7.2.686 Garrett as ASTON?BLEA [phone] Oh gwennaveen [facility] [address] MEDICAL OFFICE [facility] 2022-01-27 2022-01-27 [facility] Juanpablo Palma 1.2.840.114 [id number] Univers 10:59:59 23:59:00 Encounter [facility] Eeg DAISHA 350.1.13.10 [place]2.[place] [phone] [facility] [address] 2022-01-27 2022-01-27 Outpatient R NOLBERTO JUANPABLO [facility] [id number] Univers 10:59:59 23:59:00 ity of [facility] 2022-01-27 2022-01-27 Outpatient R JUANPABLO PALMA [facility] [id number] Univers 10:59:59 23:59:00 ity of [facility] 2022-01-27 2022-01-27 Patient Queenie [facility] [id number] [id number] Univers 00:00:00 00:00:00 Secure Msg Steven Graham [employer] 350.1.13.10 ity [facility] 4.2.7.2.686 Garrett as ASTON?BLEA [phone] Oh gwennaveen SCHW[facility] [address] MEDICAL OFFICE [facility] 2022-01-26 2022-01-26 Core Machine Tender Lab, Ang - Cory [facility] 1.2.840.1 14 [id number] Univers 08:15:00 08:30:00 Visit Santos Jeromebailey [facility] 350.1.13.10 ity of [place] 4.2.7.2.686 Garrett as ASTON?BLEA [phone] Oh trinity SCHW[facility] [address] MEDICAL OFFICE BUILDING 2022-01-26 2022-01-26 Outpatient R QUEENIE [facility] [id number] Univers 08:15:00 08:15:00 STEVEN riley [facility] 2022-01-24 2022-01-24 Outpatient R QUEENIE [facility] [id number] Univers 15:30:00 16:38:24 STEVEN riley [facility] 2022-01-24 2022-01-24 Office Queenie [facility] 1.2.960.571 [id number] Univers 15:30:00 16:38:24 Visit Steven LESLY 350.1.13.10 it y of [facility] 4.2.7.2.686 Garrett as ASTON?BLEA [phone] Oh trinity SCHWAB [address] [facility] OFFICE [facility] 2022-01-24 2022-01-24 Orders Doctor CORBIN 1.2.840.114 [id number] Univers 00:00:00 00:00:00 Only Unassigned, DAISHA 350.1.13.10 ity of [facility] 4.2.7.2.686 Garrett as [phone] [facility] [address] 2021-12-23 2021-12-23 Orders Doctor CORBIN 1.2.840.114 [id number] Univers 00:00:00 00:00:00 Only Unassigned, DAISHA 350.1.13.10 ity of [facility] 4.2.7.2.686 Garrett as [phone] [facility] [address] 2020-11-23 2020-11-23 Urgent Provider, [facility] 1.2.840.114 [id number] Univers 19:54:01 20:42:50 Care Surya Chapman 350.1.13.10 ity of [place] 4.2.7.2.686 Garrett as Professio [phone] Oh trinity mcgee [address] [employer] 2020-11-23 2020-11-23 Outpatient R ADELA [facility] [id number] Univers 20:20:00 20:20:00 SURYA riley [facility] 2020-11-23 2020-11-23 Orders Doctor CORBIN 1.2.840.114 [id number] Univers 00:00:00 00:00:00 Only Unassigned, DAISHA 350.1.13.10 ity of [facility] 4.2.7.2.686 Garrett as [phone] [facility] [address] 2020-11-23 2020-11-23 Letter Doctor CORBIN 1.2.840.114 [id number] Univers 00:00:00 00:00:00 (Out) Unassigned, DAISHA 350.1.13.10 ity of [facility] 4.2.7.2.686 Garrett as [phone] [facility] [address] 2020-11-23 2020-11-23 Letter Doctor CORBIN 1.2.840.114 [id number] Univers 00:00:00 00:00:00 (Out) Unassigned, DAISHA 350.1.13.10 ity of [facility] 4.2.7.2.686 Garrett as [id number] [facility] [address] 2020-10-21 2020-10-21 Outpatient Pedro STEVENS [facility] [id number] Univers 08:30:00 08:30:00 [facility] 2020-09-30 2020-09-30 Outpatient Pedro STEVENS [facility] [id number] Univers 08:20:00 08:20:00 [facility] 2020-05-28 2020-05-28 Urgent Provider, [facility] 1.2.840.114 [id number] Univers 08:53:14 09:31:38 Care Steven Portillo [facility] 350.1.13.10 ity of [place] 4.2.7.2.686 Garrett as Professio [phone] [address] Office [address] [facility] 2020-05-28 2020-05-28 Outpatient Pedro PORTILLO [facility] [id number] Univers 09:00:00 09:00:00 STEVEN riley [facility] Results Test Description Test Time Test Comments Results Result Comments Source POCT TEST 2022-02-04 23:26:00 Test Item Value Reference Range Interpretation Comme nts POCT PREG (test code = 1605) negative On board controls acceptable with C Line (test code = 3574) present POCT PREG LOT # (test code = 3575) [id number] POCT PREG TEST DATE (test code = 3576) 04/13/2023 Lab Interpretation (test code = 22561-5) [facility]
[2022-04-27] MEDS ORDERED: NA CHLORIDE 0.9% 1,000 ML ONE (21:51)
[2022-04-27] MEDS ORDERED: ALPRAZOLAM 1 MG TABLET ONE (21:59)
[2022-04-27 22:46] LABS: Valproic Acid (Depakene) Level 110.7 ug/mL (50-100)
--- NOTE | 2022-04-27 23:48 | EDPHYS ---
Physician Documentation [facility] Name: Nusrat Mart Age: 26 yrs Sex: Female : 1995 Arrival Date: 04/27/2022 Time: 21:18 Bed 18 Private MD: ED Physician Steven Valdez HPI: 04/28 00:55 This 26 yrs old Female presents to ER via EMS with complaints of Altered mental status, kdr possible pseudoseizure. 00:55 EMS was called to the [facility] where the patient had been experiencing what appeared to kdr be a seizure. Her parents were with her and noted that she has a history of PTSD and pseudoseizures. She has had extensive work-up at various facilities including [facility] for a seizure disorder but apparently none was found. She continues to be on some seizure/antidepression medication such as Depakote but otherwise her been no recent changes in her medications. Parents state that she has these episodes from time to time and that had this episode occurred at home, she would likely be put to her bed and allowed to sleep it off without any further intervention. Unfortunate there had a pelvic facility and the presentation of the patient at the time necessitated EMS involvement and transport to the ED. Patient arrived in stable condition somnolent and in what appeared to be a pseudo postictal state. Patient is otherwise stable and not requiring he immediate intervention . Onset: The symptoms/episode began/occurred acutely, suddenly, just prior to arrival. Severity of symptoms: At their worst the symptoms were in the emergency department the symptoms have improved. The patient has experienced similar episodes in the past, multiple times. The patient has not recently seen a physician. Historical: - Allergies: 04/27 21:21 No Known Allergies; as6 - Home Meds: 21:21 Zoloft Oral [Active]; Xanax Oral [Active]; Depakote Oral [Active]; as6 - PMHx: 21:21 Depression; Hypothyroidism; as6 - Immunization history:: Adult Immunizations up to date. - Social history:: Smoking status: Patient denies any tobacco usage or history of. ROS: 04/28 00:55 Constitutional: Negative for fever, chills, and weight loss, Eyes: Negative for injury, kdr pain, redness, and discharge, ENT: Negative for injury, pain, and discharge, Neck: Negative for injury, pain, and swelling, Cardiovascular: Negative for chest pain, palpitations, and edema, Respiratory: Negative for shortness of breath, cough, wheezing, and pleuritic chest pain, Abdomen/GI: Negative for abdominal pain, nausea, vomiting, diarrhea, and constipation, Back: Negative for injury and pain, : Negative for injury, bleeding, discharge, and swelling, MS/Extremity: Negative for injury and deformity, Skin: Negative for injury, rash, and discoloration, Psych: Negative for depression, anxiety, suicide ideation, homicidal ideation, and hallucinations, Allergy/Immunology: Negative for hives, rash, and allergies, Endocrine: Negative for neck swelling, polydipsia, polyuria, polyphagia, and marked weight changes, Hematologic/Lymphatic: Negative for swollen nodes, abnormal bleeding, and unusual bruising. Neuro: Positive for altered mental status, seizure activity, weakness. Exam: 00:55 Constitutional: This is a well developed, well nourished patient who is awake, alert, kdr and in no acute distress. Head/Face: Normocephalic, atraumatic. Eyes: Pupils equal round and reactive to light, extra-ocular motions intact. Lids and lashes normal. Conjunctiva and sclera are non-icteric and not injected. Cornea within normal limits. Periorbital areas with no swelling, redness, or edema. Neck: Trachea midline, no thyromegaly or masses palpated, and no cervical lymphadenopathy. Supple, full range of motion without nuchal rigidity, or vertebral point tenderness. No Meningismus. Chest/axilla: Normal chest wall appearance and motion. Nontender with no deformity. No lesions are appreciated. Cardiovascular: Regular rate and rhythm with a normal S1 and S2. No gallops, murmurs, or rubs. Normal PMI, no JVD. No pulse deficits. Respiratory: Lungs have equal breath sounds bilaterally, clear to auscultation and percussion. No rales, rhonchi or wheezes noted. No increased work of breathing, no retractions or nasal flaring. Abdomen/GI: Soft, non-tender, with normal bowel sounds. No distension or tympany. No guarding or rebound. No evidence of tenderness throughout. Back: No spinal tenderness. No costovertebral tenderness. Full range of motion. Skin: Warm, dry with normal turgor. Normal color with no rashes, no lesions, and no evidence of cellulitis. MS/ Extremity: Pulses equal, no cyanosis. Neurovascular intact. Full, normal range of motion. Psych: Awake, alert, with orientation to person, place and time. Behavior, mood, and affect are within normal limits. 00:55 Neuro: Patient's not responding to questions or to the exam. The family states that this is a normal post pseudoseizure state for the patient. Vital Signs: 04/27 21:18 BP 115 / 71; Pulse 66; Resp 18 S; Temp 98.3(O); Pulse Ox 100% on R/A; Weight 86.18 kg; as6 Height 5 ft. 8 in. (172.72 cm); Pain 0/10; 22:17 BP 109 / 68; Pulse 61; Resp 18 S; Pulse Ox 100% on R/A; as6 04/28 00:01 BP 94 / 61; Pulse 64; Resp 16 S; Pulse Ox 99% on R/A; as6 04/27 21:18 Body Mass Index 28.89 (86.18 kg, 172.72 cm) as6 MDM: 04/27 23:47 Patient medically screened. kdr 04/28 00:55 Data reviewed: vital signs, nurses notes, lab test result(s), radiologic studies. kdr Counseling: I had a detailed discussion with the patient and/or guardian regarding: the historical points, exam findings, and any diagnostic results supporting the discharge/admit diagnosis, lab results, the need for outpatient follow up. 04/27 21:47 Order name: Depakote; Complete Time: 23:37 kdr 04/27 21:47 Order name: CPK; Complete Time: 23:37 kdr Administered Medications: 04/27 22:09 Drug: NS 0.9% 1000 ml Route: IV; Rate: 1 bolus; Site: right antecubital; as6 23:57 Follow up: Response: No adverse reaction; IV Status: Completed infusion; IV Intake: as6 1000ml 22:09 Drug: XANax (alprazolam) Tablet 1 mg Route: PO; as6 23:56 Follow up: Response: No adverse reaction as6 Disposition Summary: 04/27/22 23:47 Discharge Ordered Location: Home kdr Problem: an acute exacerbation kdr Symptoms: have improved kdr Condition: Stable kdr Diagnosis - Other depressive episodes kdr - Other recurrent depressive disorders kdr - Post-traumatic stress disorder (PTSD) kdr Followup: kdr - With: Private Physician - When: 2 - 3 days - Reason: If symptoms return, Further diagnostic work-up, Recheck today's complaints, Continuance of care, Re-evaluation by your physician Discharge Instructions: - Discharge Summary Sheet kdr - Post-Traumatic Stress Disorder, Adult kdr - Generalized Anxiety Disorder, Adult kdr - Supporting Someone With Depression kdr - Managing Post-Traumatic Stress Disorder kdr Forms: - Medication Reconciliation Form kdr - Thank You Letter kdr Signatures: Dispatcher [employer] Steven Don MD MD kdr Rajendra Marte RN RN as6
--- NOTE | 2022-04-27 23:48 | ER ---
Nurse's Notes [facility] Name: Nusrat Mart Age: 26 yrs Sex: Female : 1995 Arrival Date: 04/27/2022 Time: 21:18 Bed 18 Private MD: Diagnosis: Other depressive episodes;Other recurrent depressive disorders;Post-traumatic stress disorder (PTSD) Presentation: 04/27 21:18 Chief complaint: EMS states: called out for seizure like activity. EMS reports pt has a as6 history of pseudoseizures from PTSD. Coronavirus screen: At this time, the client does not indicate any symptoms associated with coronavirus-19. Ebola Screen: No symptoms or risks identified at this time. Initial Sepsis Screen: Does the patient meet any 2 criteria? No. Patient's initial sepsis screen is negative. Does the patient have a suspected source of infection? No. Patient's initial sepsis screen is negative. Risk Assessment: Do you want to hurt yourself or someone else? Patient reports no desire to harm self or others. Onset of symptoms was April 27, 2022. 21:18 Method Of Arrival: EMS: [facility] as6 21:18 Acuity: PIERRE 3 as6 Historical: - Allergies: 21:21 No Known Allergies; as6 - Home Meds: 21:21 Zoloft Oral [Active]; Xanax Oral [Active]; Depakote Oral [Active]; as6 - PMHx: 21:21 Depression; Hypothyroidism; as6 - Immunization history:: Adult Immunizations up to date. - Social history:: Smoking status: Patient denies any tobacco usage or history of. Screenin:14 [facility] ED Fall Risk Assessment (Adult) History of falling in the last 3 months, as6 including since admission No falls in past 3 months (0 pts). Humpty Dumpty Scale Fall Assessment Tool (age< 18yrs) Age 13 years and above (1 pt) Gender Female (1 pt). Abuse screen: Denies threats or abuse. Denies injuries from another. Nutritional screening: No deficits noted. Tuberculosis screening: No symptoms or risk factors identified. Fall Risk No fall in past 12 months (0 pts). Assessment: 21:20 General: Appears in no apparent distress. Behavior is crying, drowsy, quiet. Pain: as6 Denies pain. Neuro: Level of Consciousness is lethargic, post ictal, pt able to arouse . Cardiovascular: Capillary refill < 3 seconds Patient's skin is warm and dry. Respiratory: Respiratory effort is even, unlabored. Derm: Skin is intact, is healthy with good turgor. 22:14 General: pt still drowsy. pt now easier to arouse. family at bedside. 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 23:59 General: discharge pending transportation. as6 Vital Signs: 21:18 BP 115 / 71; Pulse 66; Resp 18 S; Temp 98.3(O); Pulse Ox 100% on R/A; Weight 86.18 kg; as6 Height 5 ft. 8 in. (172.72 cm); Pain 0/10; 22:17 BP 109 / 68; Pulse 61; Resp 18 S; Pulse Ox 100% on R/A; as6 04/28 00:01 BP 94 / 61; Pulse 64; Resp 16 S; Pulse Ox 99% on R/A; as6 12 21:18 Body Mass Index 28.89 (86.18 kg, 172.72 cm) as6 ED Course: 04/27 21:18 Patient arrived in ED. as6 21:20 Triage completed. as6 21:20 Arm band placed on. as6 21:31 Rajendra Marte, MICHAEL is Primary Nurse. as6 21:32 Steven Valdez MD is Attending Physician. kdr 22:09 Bed in low position. Call light in reach. Side rails up X2. Adult w/ patient. as6 22:09 Inserted saline lock: 20 gauge in right antecubital area, using aseptic technique. as6 Blood collected. 22:09 CPK Sent. as6 22:09 Depakote Sent. as6 23:57 No provider procedures requiring assistance completed. IV discontinued, intact, as6 bleeding controlled, No redness/swelling at site. Pressure dressing applied. Administered Medications: 22:09 Drug: NS 0.9% 1000 ml Route: IV; Rate: 1 bolus; Site: right antecubital; as6 23:57 Follow up: Response: No adverse reaction; IV Status: Completed infusion; IV Intake: as6 1000ml 22:09 Drug: XANax (alprazolam) Tablet 1 mg Route: PO; as6 23:56 Follow up: Response: No adverse reaction as6 Medication: 22:14 VIS not applicable for this client. as6 Intake: 23:57 IV: 1000ml; Total: 1000ml. as6 Outcome: 23:47 Discharge ordered by . kdr 23:57 Discharged to home via wheelchair, with family. as6 23:57 Condition: stable 23:57 Discharge instructions given to press catcher, Instructed on discharge instructions, follow up and referral plans. Demonstrated understanding of instructions, follow-up care. 04/28 00:01 Patient left the ED. as6 Signatures: Steven Valdez MD MD kdr Slawson, Ashby, RN RN as6
[2022-04-28 00:59] VITALS: TEMP 98.3
[2022-04-28 01:09] VITALS: BP 94/61; O2SAT 99
== END 2022-04-28 00:01 | disposition home or self-care (01) ==
LOC: ER 21:16
DX: F33.8 Other recurrent depressive disorders (principal); F43.10 Post-traumatic stress disorder, unspecified
CPT/HCPCS: 96361; 36415; 82550; 80164; 96360; 99284; J7030

== ENCOUNTER 2022-09-15 10:37 | Emergency (ER) | payer BC ==
--- OUTSIDE RECORDS SUMMARY | 2022-09-15 10:41 | XMS REPORT | Continuity of Care Document ---
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 johann, 9 [id number] le} capsule by ity of vitamin D3, 00:00: mouth [place] (VITAMIN 00 daily. Medical D3) 100 mcg Branch (4,000 unit) Cap divalproex Yes 1000mg Take 1,000 Univers sodium [...] [place] ORAL) 30 daily. Medical Branch dexAMETHaso 2021- No [id number] 1mg Take 1 Univers ne 1 mg 01-24 tablet by ity of tablet 00:00: 04:59 [place] now for 1 Medical dose. Branch dexAMETHaso 2021- No [id number] 1mg Take 1 Univers ne 1 mg 01-24 tablet by ity of tablet 00:00: 04:59 [place] now for 1 Medical dose. Branch metoclopram 2021- No [id number] 1 tab Univers luis HCl 10 11-23-18 every 4hr ity of mg tablet 00:00[place] for nausea Medical Branch metoclopram 2020-2021- No [id number] 1 tab Univers luis HCl 10 -04 22-18 every 4hr ity of mg tablet 00:00[place] nausea Medical Branch metoclopram 2021- No [id number] 1 tab Univers luis HCl 10 11-23-18 every 4hr ity of mg tablet 00:00: [place] for nausea Medical Branch metoclopram 2020-0 2- No [id number] 1 tab Univers luis HCl 10 11-23-18 every 4hr ity of mg tablet 00:00: [place] nausea Medical Branch metoclopram 2020-0 2- No [id number] 1 tab Univers luis HCl 10 11-23-18 every 4hr ity of mg tablet 00:00: 00:[place] :[place] for nausea Medical Branch SERTraline 1-0 Yes 200mg Take 200 Un mandy 50 mg 6-07 mg by ity of tablet 00:00: mouth in [place] the Medical morning. Branch SERTraline 2020-0 Yes 200mg Take 200 Un mandy 50 mg 6-07 mg by ity of tablet 00:00: mouth in [place] the Medical morning. Branch SERTraline 2020-0 Yes 200mg Take 200 Un mandy 50 mg 6-07 mg by ity of tablet 00:00: mouth in [place] the Medical morning. Branch SERTraline 2020-0 Yes 200mg Take 200 Un mandy 50 mg 6-07 mg by ity of tablet 00:00: mouth in [place] the Medical morning. Branch SERTraline 2021-0 Yes 200mg Take 200 Un mandy 50 mg 6-07 mg by ity of tablet 00:00: mouth in [place] the Medical morning. Branch SERTraline 2021-0 Yes 200mg Take 200 Un mandy 50 mg 6-07 mg by ity of tablet 00:00: mouth in [place] the Medical morning. Branch SERTraline 2021-0 Yes 200mg Take 200 Un mandy 50 mg 6-07 mg by ity of tablet 00:00: mouth in [place] the Medical morning. Branch SERTraline 2021-0 Yes 200mg Take 200 Un mandy 50 mg 6-07 mg by ity of tablet 00:00: mouth in [place] the Medical morning. Branch SERTraline 2021-0 Yes 200mg Take 200 Un mandy 50 mg 6-07 mg by ity of tablet 00:00: mouth in [place] the Medical morning. Branch SERTraline 2021-0 Yes 200mg Take 200 Un mandy 50 mg 6-07 mg by ity of tablet 00:00: mouth in [place] 00 the Medical morning. Branch SERTraline 2020-0 Yes 200mg Take 200 Un mandy 50 mg 6-07 mg by ity of tablet 00:00: mouth in [place] 00 the Medical morning. Branch SERTraline 2020-0 2- No 200mg Take 200 U nivers 50 mg 6-07 09-30 mg by ity of tablet 00:00: 00:00 mouth in [place] 00 :00 the Medical morning. Branch SERTraline 2020-0 2022- No 200mg Take 200 U nivers 50 mg 6-07 09-30 mg by ity of tablet 00:00: 00:00 mouth in [place] 00 :00 the Medical morning. Branch SERTraline 2020-0 2022- No 200mg Take 200 U nivers 50 mg 6- 09-30 mg by ity of tablet 00:00: 00:00 mouth in [place] 00 :00 the Medical morning. Branch SERTraline 2020-0 2022- No 200mg Take 200 U nivers 50 mg 6- 09-30 mg by ity of tablet 00:00: 00:00 mouth in [place] 00 :00 the Medical morning. Branch SERTraline 2020-0 2- No 200mg Take 200 U nivers 50 mg 6- 09-30 mg by ity of tablet 00:00: 00:00 mouth in [place] 00 :00 the Medical morning. Branch SERTraline 2020-0 2- No 200mg Take 200 U nivers 50 mg 6-07 09-30 mg by ity of tablet 00:00: 00:00 mouth in [place] 00 :00 the Medical morning. Branch levothyroxi 2020-0 2022- No 75ug Take 75 Un mandy ne 75 mcg 6- 09-18 mcg by ity of tablet 00:00: 00:00 mouth. [place] 00 :00 Medical Branch levothyroxi 2020-0 2022- No 75ug Take 75 Un mandy ne 75 mcg 6- 09-18 mcg by ity of tablet 00:00: 00:00 mouth. [place] 00 :00 Medical Branch levothyroxi 2020-0 2022- No 75ug Take 75 Un mandy ne 75 mcg 6- 09-18 mcg by ity of tablet 00:00: 00:00 mouth. [place] 00 :00 Medical Branch levothyroxi 202-0 2022- No 75ug Take 75 Un mandy ne 75 mcg 10-19-18 mcg by ity of tablet 00:00: 00:00 mouth. [place] 00 :00 Medical Branch levothyroxi 2021- No 75ug Take 75 Un mandy ne 75 mcg 10-19-18 mcg by ity of tablet 00:00: 00:00 mouth. [place] 00 :00 Medical Branch hydrOXYzine 2021- No TAKE 1 Uni vers 25 mg 4-16 18 TABLET BY ity of tablet 00:00: 00:00 MOUTH [place] 00 :00 TWICE Medical DAILY Branch NEEDED hydrOXYzine 2021- No TAKE 1 Uni vers 25 mg 4-16 -18 TABLET BY ity of tablet 00:00: 00:00 MOUTH [place] 00 :00 TWICE Medical DAILY Branch NEEDED hydrOXYzine 2021- No TAKE 1 Uni vers 25 mg 4-16 -18 TABLET BY ity of tablet 00:00: 00:00 MOUTH [place] 00 :00 TWICE Medical DAILY Branch NEEDED hydrOXYzine 2021- No TAKE 1 Uni vers 25 mg 4-16 18 TABLET BY ity of tablet 00:00: 00:00 MOUTH [place] 00 :00 TWICE Medical DAILY Branch NEEDED hydrOXYzine 2020-2021- No TAKE 1 Uni vers 25 mg 4-16 -18 TABLET BY ity of tablet 00:00: 00:00 MOUTH [place] 00 :00 TWICE Medical DAILY Branch NEEDED Immunizations Ordered Filled Immunization Date Status Comments [facility] Immunization Name Name SARS-COV-2 COVID-19 2020-10-30 Completed Unive rsity of PFIZER VACCINE 00:00:00 [place] [facility] SARS-COV-2 COVID-19 2020-10-30 Completed Unive rsity of PFIZER VACCINE 00:00:00 [place] [facility] SARS-COV-2 COVID-19 2020-10-30 Completed Unive rsity of PFIZER VACCINE 00:00:00 [place] [facility] SARS-COV-2 COVID-19 2020-10-30 Completed Unive rsity of PFIZER VACCINE 00:00:00 [place] [facility] SARS-COV-2 COVID-19 2020-10-30 Completed Unive rsity of PFIZER VACCINE 00:00:00 [place] [facility] Branch SARS-COV-2 COVID-19 2020-10-30 Completed Unive rsity of PFIZER VACCINE 00:00:00 [facility] Branch SARS-COV-2 COVID-19 2020-10-30 Completed Unive rsity of PFIZER VACCINE 00:00:00 [facility] Branch SARS-COV-2 COVID-19 2020-10-30 Completed Unive rsity of PFIZER VACCINE 00:00:00 [facility] Branch SARS-COV-2 COVID-19 2020-10-30 Completed Unive rsity of PFIZER VACCINE 00:00:00 [facility] Branch SARS-COV-2 COVID-19 2020-10-30 Completed Unive rsity of PFIZER VACCINE 00:00:00 [facility] Branch SARS-COV-2 COVID-19 2020-10-30 Completed Unive rsity of PFIZER VACCINE 00:00:00 [facility] Branch SARS-COV-2 COVID-19 2020-10-30 Completed Unive rsity of PFIZER VACCINE 00:00:00 [facility] Branch SARS-COV-2 COVID-19 2020-10-30 Completed Unive rsity of PFIZER VACCINE 00:00:00 [facility] Branch SARS-COV-2 COVID-19 2020-10-30 Completed Unive rsity of PFIZER VACCINE 00:00:00 [facility] Branch SARS-COV-2 COVID-19 2020-10-30 Completed Unive rsity of PFIZER VACCINE 00:00:00 [place] [facility] SARS-COV-2 COVID-19 2020-10-30 Completed Unive rsity of PFIZER VACCINE 00:00:00 [facility] Branch SARS-COV-2 COVID-19 2020-10-30 Completed Unive rsity of PFIZER VACCINE 00:00:00 [facility] Branch SARS-COV-2 COVID-19 2020-10-30 Completed Unive rsity of PFIZER VACCINE 00:00:00 [facility] Branch SARS-COV-2 COVID-19 2020-10-30 Completed Unive rsity of PFIZER VACCINE 00:00:00 [place] [facility] SARS-COV-2 COVID-19 2020-10-30 Completed Unive rsity of PFIZER VACCINE 00:00:00 [facility] Branch SARS-COV-2 COVID-19 2020-10-30 Completed Unive rsity of PFIZER VACCINE 00:00:00 [facility] Branch SARS-COV-2 COVID-19 2020-10-30 Completed Unive rsity of PFIZER VACCINE 00:00:00 [facility] Branch SARS-COV-2 COVID-19 2020-10-30 Completed Unive rsity of PFIZER VACCINE 00:00:00 [facility] Branch SARS-COV-2 COVID-19 2020-10-30 Completed Unive rsity of PFIZER VACCINE 00:00:00 [facility] Branch SARS-COV-2 COVID-19 2020-10-30 Completed Unive rsity of PFIZER VACCINE 00:00:00 [facility] Branch SARS-COV-2 COVID-19 2020-10-30 Completed Unive rsity of PFIZER VACCINE 00:00:00 [facility] Branch SARS-COV-2 COVID-19 2020-10-30 Completed Unive rsity of PFIZER VACCINE 00:00:00 [facility] Branch SARS-COV-2 COVID-19 2020-10-30 Completed Unive rsity of PFIZER VACCINE 00:00:00 [facility] Branch SARS-COV-2 COVID-19 2020-09-30 Completed Unive rsity of PFIZER VACCINE 00:00:00 [facility] Branch SARS-COV-2 COVID-19 2020-09-30 Completed Unive rsity of PFIZER VACCINE 00:00:00 [facility] Branch SARS-COV-2 COVID-19 2020-09-30 Completed Unive rsity of PFIZER VACCINE 00:00:00 [facility] Branch SARS-COV-2 COVID-19 2020-09-30 Completed Unive rsity of PFIZER VACCINE 00:00:00 [facility] Branch SARS-COV-2 COVID-19 2020-09-30 Completed Unive rsity of PFIZER VACCINE 00:00:00 [facility] Branch SARS-COV-2 COVID-19 2020-09-30 Completed Unive rsity of PFIZER VACCINE 00:00:00 [facility] Branch SARS-COV-2 COVID-19 2020-09-30 Completed Unive rsity of PFIZER VACCINE 00:00:00 [facility] Branch SARS-COV-2 COVID-19 2020-09-30 Completed Unive rsity of PFIZER VACCINE 00:00:00 [facility] Branch SARS-COV-2 COVID-19 2020-09-30 Completed Unive rsity of PFIZER VACCINE 00:00:00 [facility] Branch SARS-COV-2 COVID-19 2020-09-30 Completed Unive rsity of PFIZER VACCINE 00:00:00 [facility] Branch SARS-COV-2 COVID-19 2020-09-30 Completed Unive rsity of PFIZER VACCINE 00:00:00 [facility] Branch SARS-COV-2 COVID-19 2020-09-30 Completed Unive rsity of PFIZER VACCINE 00:00:00 [facility] Branch SARS-COV-2 COVID-19 2020-09-30 Completed Unive rsity of PFIZER VACCINE 00:00:00 [facility] Branch SARS-COV-2 COVID-19 2020-09-30 Completed Unive rsity of PFIZER VACCINE 00:00:00 [facility] Branch SARS-COV-2 COVID-19 2020-09-30 Completed Unive rsity of PFIZER VACCINE 00:00:00 [facility] Branch SARS-COV-2 COVID-19 2020-09-30 Completed Unive rsity of PFIZER VACCINE 00:00:00 [facility] Branch SARS-COV-2 COVID-19 2020-09-30 Completed Unive rsity of PFIZER VACCINE 00:00:00 [facility] Branch SARS-COV-2 COVID-19 2020-09-30 Completed Unive rsity of PFIZER VACCINE 00:00:00 [facility] Branch SARS-COV-2 COVID-19 2020-09-30 Completed Unive rsity of PFIZER VACCINE 00:00:00 [facility] Branch SARS-COV-2 COVID-19 2020-09-30 Completed Unive rsity of PFIZER VACCINE 00:00:00 [facility] Branch SARS-COV-2 COVID-19 2020-09-30 Completed Unive rsity of PFIZER VACCINE 00:00:00 [facility] Branch SARS-COV-2 COVID-19 2020-09-30 Completed Unive rsity of PFIZER VACCINE 00:00:00 [facility] Branch SARS-COV-2 COVID-19 2020-09-30 Completed Unive rsity of PFIZER VACCINE 00:00:00 [facility] Branch SARS-COV-2 COVID-19 2020-09-30 Completed Unive rsity of PFIZER VACCINE 00:00:00 [place] [facility] SARS-COV-2 COVID-19 2020-09-30 Completed Unive rsity of PFIZER VACCINE 00:00:00 [place] [facility] SARS-COV-2 COVID-19 2020-09-30 Completed Unive rsity of PFIZER VACCINE 00:00:00 [place] [facility] SARS-COV-2 COVID-19 2020-09-30 Completed Unive rsity of PFIZER VACCINE 00:00:00 [place] [facility] SARS-COV-2 COVID-19 2020-09-30 Completed Unive rsity of PFIZER VACCINE 00:00:00 [place] [facility] Vital Signs Vital Name Observation Time Observation Value Comments Source Systolic blood 2022-04-04 14:31:00 129 mm[Hg] Univer sity of pressure [facility] Diastolic blood 2022-04-04 14:31:00 83 mm[Hg] Unive rsity of pressure [facility] Heart rate 2022-04-04 14:31:00 89 /min Universi ty of [facility] Body height 2022-04-04 14:31:00 162.6 cm Universi ty of [facility] Body weight 2022-04-04 14:31:00 104.327 kg Universi ty of [facility] BMI 2022-04-04 14:31:00 39.48 kg/m2 Universi ty of [facility] Systolic blood 2022-03-17 12:44:00 118 mm[Hg] Univer sity of pressure [facility] Diastolic blood 2022-03-17 12:44:00 75 mm[Hg] Unive rsity of pressure [facility] Heart rate 2022-03-17 12:44:00 65 /min Universi ty of [facility] Body temperature 2022-03-17 12:44:00 36.56 Misti [facility] ersity of [facility] Respiratory rate 2022-03-17 12:44:00 16 /min [facility] in 2022-03-17 12:44:00 98 /min [facility] Arterial blood by [facility] Pulse oximetry [place] Body height 2022-03-14 17:00:00 162.6 cm Universi ty of [facility] Body weight 2022-03-14 17:00:00 104.327 kg Universi ty of [facility] BMI 2022-03-14 17:00:00 39.48 kg/m2 Universi ty of [place] [facility] Systolic blood 2022-02-11 13:03:00 103 mm[Hg] Univer sity of pressure [place] [facility] Diastolic blood 2022-02-11 13:03:00 73 mm[Hg] Unive rsity of pressure [place] [facility] Heart rate 2022-02-11 13:03:00 80 /min Universi ty of [place] [facility] Body height 2022-02-11 13:03:00 162.6 cm Universi ty of [place] [facility] Body weight 2022-02-11 13:03:00 104.327 kg Universi ty of [place] [facility] BMI 2022-02-11 13:03:00 39.48 kg/m2 Universi ty of [place] [facility] Oxygen saturation in 2022-02-11 13:03:00 98 /min University of Arterial blood by [place] [employer] nirmala Pulse oximetry Branch Systolic blood 2022-02-07 20:49:00 106 mm[Hg] Univer sity of pressure [place] [facility] Diastolic blood 2022-02-07 20:49:00 68 mm[Hg] Unive rsity of pressure [place] [facility] Heart rate 2022-02-07 20:49:00 72 /min Universi ty of [place] [facility] Body temperature 2022-02-07 20:49:00 36.67 Misti Univ ersity of [place] [facility] Respiratory rate 2022-02-07 20:49:00 18 /min Univ ersity of [place] [facility] Body height 2022-02-07 20:49:00 162.6 cm Universi ty of [place] [facility] Body weight 2022-02-07 20:49:00 104.69 kg Universi ty of [place] [facility] BMI 2022-02-07 20:49:00 39.62 kg/m2 Universi ty of [place] [facility] Oxygen saturation in 2022-02-07 20:49:00 100 /min University of Arterial blood by [employer] nirmala Pulse oximetry Branch Systolic blood 2022-02-05 00:52:00 109 mm[Hg] Univer sity of pressure [place] [facility] Diastolic blood 2022-02-05 00:52:00 65 mm[Hg] Unive rsity of pressure [place] [facility] Heart rate 2022-02-05 00:52:00 62 /min Universi ty of [place] [facility] Respiratory rate 2022-02-05 00:52:00 16 /min Univ ersity of [place] [facility] Oxygen saturation in 2022-02-05 00:52:00 100 /min University of Arterial blood by [place] [employer] nirmala Pulse oximetry Branch Body temperature 2022-02-04 22:25:00 36.5 Misti Univ ersity of [place] [facility] Body height 2022-02-04 22:25:00 162.6 cm Universi ty of [place] [facility] Body weight 2022-02-04 22:25:00 104.327 kg Universi ty of [place] [facility] BMI 2022-02-04 22:25:00 39.48 kg/m2 Universi ty of [place] [facility] Systolic blood 2022-02-04 15:53:00 114 mm[Hg] Univer sity of pressure [place] [facility] Diastolic blood 2022-02-04 15:53:00 83 mm[Hg] Unive rsity of pressure [place] [facility] Heart rate 2022-02-04 15:53:00 71 /min Universi ty of [place] [facility] Body height 2022-02-04 15:53:00 162.6 cm Universi ty of [place] [facility] Body weight 2022-02-04 15:53:00 104.055 kg Universi ty of [place] [facility] BMI 2022-02-04 15:53:00 39.38 kg/m2 Universi ty of [place] [facility] Oxygen saturation in 2022-02-04 15:53:00 99 /min University of Arterial blood by [place] [employer] nirmala Pulse oximetry Branch Systolic blood 2022-01-24 20:47:00 107 mm[Hg] Univer sity of pressure [place] [facility] Diastolic blood 2022-01-24 20:47:00 71 mm[Hg] Unive rsity of pressure [place] [facility] Heart rate 2022-01-24 20:47:00 89 /min Universi ty of [place] [facility] Body height 2022-01-24 20:47:00 162.6 cm Universi ty of [place] [facility] Body weight 2022-01-24 20:47:00 104.554 kg Universi ty of [place] [facility] BMI 2022-01-24 20:47:00 39.57 kg/m2 Universi ty of [place] [facility] Oxygen saturation in 2022-01-24 20:47:00 97 /min University of Arterial blood by [facility] Pulse oximetry Branch Procedures Procedure Date / Time Performing Source Performed Clinician EXTERNAL PROVIDER RECORDS 2022-05-03 Doctor Unassigned, [facility] 06:01:00 [place] [facility] MR BRAIN WO CONTRAST 2022-02-[address] [facility] 20:03:00 Gene [facility] RHEUMATOID FACTOR 2022-02-[address] [facility] 21:39:00 [facility] C-REACTIVE PROTEIN 2022-02-[address] [facility] 21:39:00 [facility] SEDIMENTATION RATE 2022-02-[address] [facility] 21:39:00 [facility] VITAMIN D, 25-OH 2022-02-07 Ginger Vee [facility] 21:39:00 [facility] ANTI-NUCLEAR ANTIBODY SCREEN 2022-02-07 Ginger Vee [facility] 21:39:00 [facility] ANTI-NUCLEAR ANTIBODY TITER 2022-02-07 Ginger Vee [facility] 21:39:00 [facility] ANTI-NUCLEAR 2022-02-07 Ginger Vee [facility] xa ANTIBODY-PATHOLOGIST 21:39:00 [facility] INTERPRETATION POCT TEST 2022-02-04 Prasad [facility] 23:26:00 [facility] URINE DRUG (IMMUNOASSAY) - [facility]22-02-04 [facility] [place] [facility] 23:21:00 [facility]02-[facility] 23:21:00 [facility] CREATINE KINASE 2022-02-04 Prasad [facility] 22:47:00 [facility] MAGNESIUM 2022-02-04 Prasad [facility] 22:47:00 [facility] TROPONIN I 2022[facility]02-[facility] 22:47:00 [facility] THYROID STIMULATING HORMONE 2022-02-04 Prasad [facility] 22:47:00 [facility] COMP. METABOLIC PANEL (29694) 2022-02-04 Tonja Parham [facility] 22:47:00 [facility] CBC WITH DIFF 2022-02-04 Prasad [facility] 22:47:00 [facility] D[facility]IMER 2022-02-[facility] 22:47:00 [facility] ELECTROENCEPHALOGRAM 2022-01-[address] [facility] 00:00:00 [facility] Encounters Start End Encounter Admission Attending Care Care Encounter Source Date/Time Date/Time Type Type Clinicians Facility Department ID 2022-05-03 2022-05-03 Orders Doctor CORBIN [id number] [id number] Univers 00:00:00 00:00:00 Only Unassigned, DAISHA [id number] ity of [place] [facility] [id number] [place] as [id number] [address] 2022-04-04 2022-04-04 Outpatient NESTOR PATEL [facility] [id number] Univers 08:20:00 08:52:34 [facility] 2022-04-04 2022-04-04 Office Chuy [facility] [id number] Univers 08:20:00 08:52:[address] [facility] [id number] ity of [place] [id number] Agrrett as ASTON?BLEA [id number] [address] MEDICAL OFFICE BUILDING 2022-03-21 2022-03-21 Outpatient JUANPABLO FUENTES [facility] [id number] Univers 08:30:00 08:30:00 ity of [facility] 2022-03-18 2022-03-18 Telephone Chuy [facility] [id number] Univers 00:00:00 00:00:00 [facility] [id number] ity of [place] [id number] [place] as ASTON?BLEA [id number] [address] MEDICAL OFFICE BUILDING 2022-03-18 2022-03-18 Transition TIMOTHY Naranjo [id number] Univers 00:00:00 00:00:00 of Care Ruben PARTIDAY [id number] [id number] [id number] [facility] [address] Branch 2022-03-18 2022-03-18 Telephone [facility] [id number] Univers 00:00:00 00:00:00 [facility] [id number] ity [id number] [id number] [address] 2022-03-14 2022-03-17 Inpatient R NEPTALI [facility] ROOSEVELT [id number] Univers 09:04:00 12:32:[facility]14 2022-03-17 Hospital KIM Wolff [id number] Univers 09:04:00 12:32:00 Encounter Bette DAISHA [id number] ity of HOSPITAL [id number] [place] as [id number] [facility] [address] [place] 2022-03-14 2022-03-14 Outpatient R LEISA HUGHES [facility] [id number] Univers 11:30:00 11:30:00 [facility] 2022-03-14 2022-03-14 Outpatient R ELLEN [facility] [id number] Univers 11:30:00 11:30:00 [facility] 2022-02-28 2022-02-28 Letter [facility] [id number] Univers 00:00:00 00:00:00 (Out) [facility] [id number] ity of [place] [id number] Garrett as ASTON?BLEA [id number] [address] MEDICAL OFFICE [facility] 2022-02-25 2022-02-25 Telephone [facility] [id number] Univers 00:00:00 00:00:00 [facility] [id number] ity of [place] [id number] Garrett as ASTON?BLEA [id number] [address] MEDICAL OFFICE BUILDING 2022-02-18 2022-02-18 Telephone Chuy [facility] [id number] Univers 00:00:00 00:00:00 Nestor Cannon [facility] [id number] ity of [place] [id number] Garrett as ASTON?BLEA [id number] [address] MEDICAL OFFICE [facility] 2022-02-17 2022-02-17 Outpatient NESTOR PATEL [facility] [id number] Univers 14:06:52 23:59:00 NESTOR VERA itbeckie [facility] [facility] 2022-02-17 2022-02-17 [facility] Chuy [facility] [id number] Univers 14:06:52 23:59:00 Encounter Nestor MARCANO 350.1.13.10 ity of [place] 4.2.7.2.686 [facility] [id number] [facility] [address] 2022-02-11 2022-02-11 Outpatient R NESTOR VERA [facility] [id number] Univers 08:00:00 09:16:44 NESTOR VERA beckie [facility] 2022-02-11 2022-02-11 Office Chuy [facility] 1.2.840.114 [id number] Univers 08:00:00 09:16:44 Visit Nestor Cannon [facility] 350.1.13.10 ity of [place] 4.2.7.2.686 Garrett as ASTON?BLEA [phone] [address] MEDICAL OFFICE [facility] 2022-02-09 2022-02-09 Patient Mariusz [facility] 1.2.840.114 [id number] Univers 00:00:00 00:00:00 Secure Msg Ginger Robert MULTISPEC 350.1.13.10 ity of [facility] 4.2.7.2.686 [facility] [phone] [facility] AND [facility]ERS [address] [place] [address] [facility] 2022-02-07 2022-02-07 Traffic Routing Engineer Vtc-Lab [facility] 1.2.840.114 [id number] Univers 16:45:00 17:00:00 Visit Ginger Vee MULTISPEC 350.1.13.10 [place] [phone] [facility] AND GUIN [address] [facility] 2022-02-07 2022-02-07 Outpatient R MARIUSZ [facility] [id number] Univers 15:45:00 16:29:27 GINGER beckie [facility] 2022-02-07 2022-02-07 [facility] 1.2.840.114 [id number] Univers 15:45:00 16:29:27 Visit Ginger [facility] 350.1.13.10 [place]2.[place] [phone] [address] [facility] 2022-02-04 2022-02-04 Emergency X PRASAD [facility] ERT [id number] Univers 17:20:00 20:47:00 TONJA riley [facility] 2022-02-04 2022-02-04 Emergency Prasad [facility] 1.2.840.114 [id number] Univers 17:20:00 20:47:00 Tonja MARCANO 350.1.13.10 i ty of [place].2.[place] [phone] [address] 2022-02-04 2022-02-04 Outpatient R PRACHI [facility] [id number] Univers 11:00:00 12:52:07 PARI [facility] 2022-02-04 2022-02-04 Office Steven Jerome [facility] 1.2.840. 114 [id number] Univers 11:00:00 12:52:07 [facility] 350.1.13.10 ity of [place] 4.2.7.2.686 Garrett as ASTON?BLEA [phone] Dc trinity SCHWAB [address] [place] [address] MEDICAL OFFICE BUILDING 2022-01-30 2022-01-30 Emergency X JULIA [facility] ERT [id number] Univers 20:10:00 20:56:00 NIDA riley [facility] 2022-01-30 2022-01-30 Emergency Julia [facility] 1.2.840.114 [id number] Univers 20:10:00 20:56:00 Nida SOLERTON 350.1.13.10 it[place] of [place]2.7.2.[place] [facility] [phone] [facility] [address] 2022-01-28 2022-01-28 Telephone Minerva Juanpablo [facility] 1.2.840.114 [id number] Univers 00:00:00 00:00:00 S HEALTH 350.1.13.10 it y [facility] 4.2.7.2.686 Garrett as ASTON?BLEA [phone] Dc dicnaveen SCHWAB [address] MEDICAL OFFICE BUILDING 2022-01-27 2022-01-27 Hospital Juanpablo Palma CORBIN 1.2.840.114 [id number] Univers 10:59:59 23:59:00 Encounter Bernadette May DAISHA 350.1.13.10 [place] of [place].2.[place] [id number] [facility] [address] 2022-01-27 2022-01-27 Outpatient R JUANPABLO PALMA [facility] [id number] Univers 10:59:59 23:59:00 ity of [facility] 2022-01-27 2022-01-27 Outpatient R JUANPABLO PALMA [facility] [id number] Univers 10:59:59 23:59:00 ity of [facility] 2022-01-27 2022-01-27 Patient Jerome, [facility] [id number] [id number] Univers 00:00:00 00:00:00 Secure Msg Steven Yozons 350.1.13.10 ity of [facility] 4.2.7.2.686 Garrett as ASTON?BLEA [phone] Dc dicnaveen SCHW[facility] [address] MEDICAL OFFICE BUILDING 2022-01-26 2022-01-26 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, [place] - Cory [facility] 1.2.840.1 [id number] Univers 08:15:00 08:30:00 Visit Steven Jerome Gladys HEALTH 350.1.13.10 ity of [place] 4.2.7.2.686 Garrett as ASTON?BLEA [id number] Dc trinity SCHWAB [address] MEDICAL OFFICE BUILDING 2022-01-26 2022-01-26 Outpatient R QUEENIE [facility] [id number] Univers 08:15:00 08:15:00 STEVEN irley [facility] 2022-01-24 2022-01-24 Outpatient R JEROME [facility] [id number] Univers 15:30:00 16:38:24 STEVEN riley [facility] 2022-01-24 2022-01-24 [facility] [id number] Univers 15:30:00 16:38:24 Visit Steven HEALTH 350.1.13.10 it y of [place] 4.2.7.2.686 Garrett as ASTON?BLEA [phone] Dc trinity SCHWAB [address] [facility] OFFICE BUILDING 2022-01-24 2022-01-24 Orders Doctor ALANIZ 1.2.840.114 [id number] Univers 00:00:00 00:00:00 Only Unassigned, DAISHA 350.1.13.10 ity of [place] [facility] 4.2.7.2.686 Garrett as [phone] [address] 2021-12-23 2021-12-23 Orders Doctor CORBIN 1.2.840.114 [id number] Univers 00:00:00 00:00:00 Only Unassigned, DAISHA 350.1.13.10 ity of [place] [facility] 4.2.7.2.686 Garrett as [id number] [address] 2020-11-23 2020-11-23 Urgent Provider, [facility] 1.2.840.114 [id number] Univers 19:54:01 20:42:50 Care Surya [facility] 350.1.13.10 ity of [place] 4.2.7.2.686 Garrett as Professio [phone] Dc gwennaveen [address] Office Building One 2020-11-23 2020-11-23 Outpatient R ADELA [facility] [id number] Univers 20:20:00 20:20:00 SURYA riley [facility] 2020-11-23 2020-11-23 Orders Doctor CORBIN Real2.840.114 [id number] Univers 00:00:00 00:00:00 Only Unassigned, DAISHA 350.1.13.10 ity of [place] [facility] 4.2.7.2.686 Garrett as [id number] [facility] [address] 2020-11-23 2020-11-23 Letter Doctor CORBIN 1.2.840.114 [id number] Univers 00:00:00 00:00:00 (Out) Unassigned, DAISHA 350.1.13.10 ity of [place] [facility] 4.2.7.2.686 Garrett as [phone] [facility] [address] 2020-11-23 2020-11-23 Letter Doctor CORBIN 1.2.840.114 [id number] Univers 00:00:00 00:00:00 (Out) Unassigned, DAISHA 350.1.13.10 ity of [place] [facility] 4.2.7.2.686 Garrett as [id number] [facility] [address] 2020-10-21 2020-10-21 Outpatient Pedro STEVENS [facility] [id number] Univers 08:30:00 08:30:00 [facility] 2020-09-30 2020-09-30 Outpatient Pedro STEVENS [facility] [id number] Univers 08:20:00 08:20:00 [facility] 2020-05-28 2020-05-28 Urgent Provider, [facility] 1.2.840.114 [id number] Univers 08:53:14 09:31:38 Care Steven Portillo [facility] 350.1.13.10 ity of [place] 4.2.7.2.686 Garrett as Professio [phone] [address] Office [address] 2020-05-28 2020-05-28 Outpatient Pedro PORTILLO [facility] [id number] Univers 09:00:00 09:00:00 STEVEN [facility] Results Test Description Test Time Test Comments Results Result Comments Source POCT TEST 2022-02-04 23:26:00 Test Item Value Reference Range Interpretation Comme nts POCT PREG (test code = 1605) negative On board controls acceptable with C Line (test code = 3574) present POCT PREG LOT # (test code = 3575) [id number] POCT PREG TEST DATE (test code = 3576) 04/13/2023 Lab Interpretation (test code = 90141-8) [facility]
[2022-09-15] MEDS ORDERED: ONDANSETRON 4 MG/2 ML VIAL ONE (11:09)
[2022-09-15] MEDS ORDERED: NA CHLORIDE 0.9% 1,000 ML ONE (11:10)
[2022-09-15] MEDS ORDERED: KETOROLAC 30 MG/ML INJ ONE (11:10)
[2022-09-15 11:30] LABS: Absolute Lymphocytes (CBC) 2.4 K/uL (0.7-4.9); Hematocrit 38.4 % (36.0-45.0); Lymphocytes % 26.3 % (15.3-44.8); MCV 85.9 fL (80-100); MPV 7.4 fL (7.6-11.3); RBC Red Blood Cell Count 4.48 M/uL (3.86-4.86)
[2022-09-15 11:31] LABS: Urine Bilirubin Negative (Negative); Urine Blood 2+ (Negative); Urine Clarity Clear (Clear); Urine Color Yellow (Yellow); Urine Glucose Negative (Negative); Urine Protein Negative (Negative); Urine Urobilinogen 0.2 mg/dL (0.2-1.0); Urine pH 8.5 (5.0-7.0)
[2022-09-15 11:39] LABS: Urine RBC <5 /HPF (None Seen)
[2022-09-15 11:40] LABS: Urine Bacteria <20 /HPF (<20)
[2022-09-15 11:47] LABS: Bilirubin Total 0.4 mg/dL (0.2-1.0); Protein, Total 7.9 g/dL (6.4-8.2)
--- NOTE | 2022-09-15 11:56 | RAD REPORT ---
EXAM DESCRIPTION: CT - Abdomen Pelvis W Contrast - 09/15/2022 11:41 am CLINICAL HISTORY: Abdominal pain COMPARISON: 2019 TECHNIQUE: Computed axial tomography of the abdomen pelvis was obtained. 100 cc Isovue-300 was admin istered intravenously. Oral contrast was not requested which limits evaluation of bowel and appendix All CT scans are performed using dose optimization technique as appropriate and may include automated exposure control or mA/KV adjustment according to patient size. FINDINGS: The liver, spleen, pancreas, adrenal and kidneys appear unremarkable. There is no evidence of diverticulitis. Normal appendix No adnexal mass Small umbilical hernia IMPRESSION: No acute abnormality is displayed.
--- NOTE | 2022-09-15 12:17 | ER ---
Nurse's Notes [facility] Name: Nusrat Mart Age: 27 yrs Sex: Female : 1995 Arrival Date: 09/15/2022 Time: 10:37 Bed 19 Private MD: Diagnosis: Nausea with vomiting, unspecified;Abdominal pain, Generalized-and flank Presentation: 09/15 10:42 Chief complaint: Patient states: "I got diagnosed with a UTI and was prescribed aa5 nitrofurantoin but today I am having severe pain". Pt reports pain to left flank today. Coronavirus screen: At this time, the client does not indicate any symptoms associated with coronavirus-19. Ebola Screen: Patient denies travel to an Ebola-affected area in the 21 days before illness onset. Initial Sepsis Screen: Does the patient meet any 2 criteria? No. Patient's initial sepsis screen is negative. Does the patient have a suspected source of infection? No. Patient's initial sepsis screen is negative. Risk Assessment: Do you want to hurt yourself or someone else? Patient reports no desire to harm self or others. 10:42 Method Of Arrival: Ambulatory aa5 10:42 Acuity: PIERRE 3 aa5 10:45 Onset of symptoms was September 15, 2022. eh3 Triage Assessment: 10:45 General: Appears in no apparent distress. uncomfortable, Behavior is calm, cooperative, eh3 appropriate for age. GI: Reports lower abdominal pain, nausea, vomiting. 12:19 GI: Reports. 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 - Social history:: Smoking status: Patient denies any tobacco usage or history of. Screenin:45 [facility] ED Fall Risk Assessment (Adult) Score/Fall Risk Level 0 - 2 = Low Risk. Abuse eh3 screen: Denies threats or abuse. Denies injuries from another. Nutritional screening: No deficits noted. Tuberculosis screening: No symptoms or risk factors identified. Assessment: 10:45 General: Appears in no apparent distress. uncomfortable, Behavior is calm, cooperative, eh3 appropriate for age. Pain: Complains of pain in left flank. Neuro: Level of Consciousness is awake, alert, obeys commands, Oriented to person, place, time, situation. Cardiovascular: Capillary refill < 3 seconds Patient's skin is warm and dry. Respiratory: Airway is patent Respiratory effort is even, unlabored, Respiratory pattern is regular, symmetrical. GI: Abdomen is round non-distended. : Urine is clear. EENT: No signs and/or symptoms were reported regarding the EENT system. Derm: Skin is pink, warm \\T\\ dry. Musculoskeletal: Circulation, motion, and sensation intact. 11:45 Reassessment: Patient appears in no apparent distress at this time. Patient and/or eh3 family updated on plan of care and expected duration. Pain level reassessed. Patient is alert, oriented x 3, equal unlabored respirations, skin warm/dry/pink. Vital Signs: 10:42 BP 127 / 83; Pulse 67; Resp 16 S; Temp 98(TE); Pulse Ox 100% on R/A; Weight 108.86 kg aa5 (R); Height 5 ft. 4 in. (R); 11:45 BP 110 / 73; Pulse 57; Resp 18; Pulse Ox 100% on R/A; eh3 10:42 Body Mass Index 41.20 (108.86 kg, 162.56 cm) aa5 ED Course: 10:39 Patient arrived in ED. am2 10:40 Rosy Henson FNP-C is PHCP. kb 10:40 Timmy Martin MD is Attending Physician. kb 10:42 Arm band placed on. aa5 10:44 Triage completed. aa5 10:45 Patient has correct armband on for positive identification. Bed in low position. Call 3 light in reach. 10:54 Mohini Orr, MICHAEL is Primary Nurse. eh3 11:10 Inserted saline lock: 22 gauge in right antecubital area, using aseptic technique. eh3 Blood collected. 11:22 Radiology exam delayed due to test not completed at this time. ls3 11:43 CT Abd/Pelvis - IV Contrast Only In Process Unspecified. EDMS 12:19 No provider procedures requiring assistance completed. IV discontinued, intact, eh3 bleeding controlled, No redness/swelling at site. Pressure dressing applied. Administered Medications: 11:10 Drug: NS 0.9% IV 1000 ml Route: IV; Rate: 1 bolus; Site: right antecubital; eh3 12:22 Follow up: IV Status: Completed infusion; IV Intake: 1000ml eh3 11:10 Drug: TORadol - Ketorolac IVP 15 mg Route: IVP; Site: right antecubital; eh3 12:00 Follow up: Response: Pain is unchanged, physician notified eh3 11:10 Drug: Ondansetron IVP 4 mg Route: IVP; Site: right antecubital; eh3 12:00 Follow up: Response: Nausea is decreased eh3 Medication: 12:19 VIS not applicable for this client. eh3 Intake: 12:22 IV: 1000ml; Total: 1000ml. eh3 Outcome: 12:16 Discharge ordered by MD. phelan 12:22 Discharged to home ambulatory. eh3 12:22 Condition: stable 12:22 Discharge instructions given to patient, Instructed on discharge instructions, follow up and referral plans. medication usage, Demonstrated understanding of instructions, follow-up care, medications, Prescriptions given X 2. 12:29 Patient left the ED. eh3 Signatures: Dispatcher [employer] EDMS Rosy Henson, PLASTIC WELDING MACHINE OPERATOR-C PLASTIC WELDING MACHINE OPERATOR-CkMallika Cole, RN RN aa5 [place] Adrian Lynzie ls3 Mohini Orr, RN RN eh3 Corrections: (The following items were deleted from the chart) 12:22 12:22 Discharge instructions given to patient, Instructed on discharge instructions, eh3 follow up and referral plans. Demonstrated understanding of instructions, follow-up care, eh3
--- NOTE | 2022-09-15 12:17 | EDPHYS ---
Physician Documentation [facility] Name: Nusrat Mart Age: 27 yrs Sex: Female : 1995 Arrival Date: 09/15/2022 Time: 10:37 Bed 19 Private MD: MALI Physician Timmy Martin HPI: 09/15 12:13 This 27 yrs old Female presents to ER via Ambulatory with complaints of kb Nausea/Vomiting, Flank Pain. 12:14 The patient complains of pain in the left flank. The pain does not radiate. Onset: The kb symptoms/episode began/occurred today. Modifying factors: The symptoms are alleviated by nothing. the symptoms are aggravated by nothing. Associated signs and symptoms: Pertinent positives: nausea, vomiting. Severity of pain: At its worst the pain was moderate in the emergency department the pain is unchanged. The patient has not experienced similar symptoms in the past. The patient has been recently seen by a physician:. Pt reports she has had abd cramping, nausea and vomiting for about a week. Was diagnosed with a UTI after seeking care. Today developed left flank pain. 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 - Social history:: Smoking status: Patient denies any tobacco usage or history of. ROS: 12:12 Constitutional: Negative for fever, chills, and weight loss. kb 12:12 Abdomen/GI: Positive for abdominal pain, nausea and vomiting. 12:12 Back: Positive for flank pain, on the left. 12:12 All other systems are negative. Exam: 12:12 Constitutional: This is a well developed, well nourished patient who is awake, alert, kb and in no acute distress. Head/Face: Normocephalic, atraumatic. ENT: Moist Mucous membranes Cardiovascular: Regular rate and rhythm with a normal S1 and S2. No gallops, murmurs, or rubs. No pulse deficits. Respiratory: Respirations even and unlabored. No increased work of breathing. Talking in full sentences Abdomen/GI: Soft, non-tender. No distention Skin: Warm, dry with normal turgor. Normal color. MS/ Extremity: Pulses equal, no cyanosis. Neurovascular intact. Full, normal range of motion. Neuro: Awake and alert, GCS 15, oriented to person, place, time, and situation. Moves all extremities. Normal gait. 12:12 Back: CVA tenderness, that is mild, is noted on the left. Vital Signs: 10:42 BP 127 / 83; Pulse 67; Resp 16 S; Temp 98(TE); Pulse Ox 100% on R/A; Weight 108.86 kg aa5 (R); Height 5 ft. 4 in. (R); 11:45 BP 110 / 73; Pulse 57; Resp 18; Pulse Ox 100% on R/A; eh3 10:42 Body Mass Index 41.20 (108.86 kg, 162.56 cm) aa5 MDM: 10:48 Patient medically screened. kb 12:13 Differential diagnosis: viral gastroenteritis, pyelonephritis, kidney stone, UTI. Data kb reviewed: vital signs, nurses notes. Counseling: I had a detailed discussion with the patient and/or guardian regarding: the historical points, exam findings, and any diagnostic results supporting the discharge/admit diagnosis, lab results, radiology results, the need for outpatient follow up, a family practitioner, to return to the emergency department if symptoms worsen or persist or if there are any questions or concerns that arise at home. 09/15 10:56 Order name: CBC with Diff; Complete Time: 11:32 kb 09/15 10:56 Order name: CMP; Complete Time: 11:50 kb 09/15 10:56 Order name: Lipase; Complete Time: 11:50 kb 09/15 10:56 Order name: Test, Urine; Complete Time: 11:37 kb 09/15 11:31 Order name: Urinalysis w/ reflexes; Complete Time: 11:50 EDMS 09/15 10:56 Order name: CT Abd/Pelvis - IV Contrast Only; Complete Time: 12:00 kb 09/15 10:56 Order name: IV Saline Lock; Complete Time: 11:20 kb 09/15 10:56 Order name: Labs collected and sent; Complete Time: 11:20 kb Administered Medications: 11:10 Drug: NS 0.9% IV 1000 ml Route: IV; Rate: 1 bolus; Site: right antecubital; 3 12:22 Follow up: IV Status: Completed infusion; IV Intake: 1000ml 3 11:10 Drug: TORadol - Ketorolac IVP 15 mg Route: IVP; Site: right antecubital; 3 12:00 Follow up: Response: Pain is unchanged, physician notified 3 11:10 Drug: Ondansetron IVP 4 mg Route: IVP; Site: right antecubital; 3 12:00 Follow up: Response: Nausea is decreased 3 Disposition Summary: 09/15/22 12:16 Discharge Ordered Location: Home kb Condition: Stable kb Diagnosis - Nausea with vomiting, unspecified kb - Abdominal pain, Generalized - and flank kb Followup: kb - With: Emergency Department - When: As needed - Reason: Worsening of condition Followup: kb - With: Private Physician - When: 2 - 3 days - Reason: Recheck today's complaints, Continuance of care, Re-evaluation by your physician Discharge Instructions: - Discharge Summary Sheet kb - Nausea and Vomiting, Adult, [id number] kb - Abdominal Pain, Adult, [id number]-ht-[id number] kb - Flank Pain, Adult, [id number] kb Forms: - Medication Reconciliation Form kb - Thank You Letter kb - Antibiotic Education kb - Prescription Opioid Use kb Prescriptions: - Zofran 4 mg Oral Tablet - take 1 tablet by ORAL route every 6 hours As needed; 20 tablet; Refills: 0, kb Product Selection Permitted - Diclofenac Sodium 75 mg Oral tablet,delayed release (DR/EC) - take 1 tablet by ORAL route 2 times per day As needed; 30 tablet; Refills: 0, kb Product Selection Permitted Signatures: Dispatcher [employer] EDRosy Rodriguez, CESAR-Bubba GUERRERO-Mallika Ann, RN RN aa5 Mohini Orr RN RN eh3 Corrections: (The following items were deleted from the chart) 11:47 10:57 Urinalysis+U.LAB.BRZ ordered. EDMS EDMS
[2022-09-15 12:34] VITALS: TEMP 98; O2SAT 100
[2022-09-15 12:36] VITALS: BP 110/73
== END 2022-09-15 12:29 | disposition home or self-care (01) ==
LOC: ER 10:37
DX: R11.2 Nausea with vomiting, unspecified (principal); R10.84 Generalized abdominal pain; E03.9 Hypothyroidism, unspecified; F32.A Depression, unspecified
CPT/HCPCS: 96361; 85025; 81001; 36415; 81025; 83690; 80053; 74177; 96375; 96374; 99284; Q9967; J2405; J7030

== ENCOUNTER 2022-10-13 10:18 | Emergency (ER) | payer BC ==
--- OUTSIDE RECORDS SUMMARY | 2022-10-13 10:28 | XMS REPORT | Continuity of Care Document ---
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 morning. Branch SERTraline 2020-0 2022- No 200mg Take 200 U nivers 50 mg 6-07 09-30 mg by ity of tablet 00:00: 00:00 mouth in [place] 00 :00 the Medical morning. Branch SERTraline 2020-0 2022- No 200mg Take 200 U nivers 50 mg 6- 09-30 mg by ity of tablet 00:00: 00:00 mouth in [place] 00 :00 the Medical morning. Branch SERTraline 2020-0 2022- No 200mg Take 200 U nivers 50 mg 6- 09-30 mg by ity of tablet 00:00: 00:00 mouth in [place] 00 :00 the Medical morning. Branch SERTraline 2020-0 2- No 200mg Take 200 U nivers 50 mg 6- 09-30 mg by ity of tablet 00:00: 00:00 mouth in [place] 00 :00 the Medical morning. Branch SERTraline 2020-0 2- No 200mg Take 200 U nivers 50 mg 6-07 09-30 mg by ity of tablet 00:00: 00:00 mouth in [place] 00 :00 the Medical morning. Branch levothyroxi 2020-0 2022- No 75ug Take 75 Un mandy ne 75 mcg 6- 09-18 mcg by ity of tablet 00:00: 00:00 mouth. [place] 00 :00 Medical Branch levothyroxi 2020-0 2022- No 75ug Take 75 Un mandy ne 75 mcg 6- 09-18 mcg by ity of tablet 00:00: 00:00 mouth. [place] 00 :00 Medical Branch levothyroxi 2020-0 2022- No 75ug Take 75 Un mandy ne 75 mcg 6- 09-18 mcg by ity of tablet 00:00: 00:00 mouth. [place] 00 :00 Medical Branch levothyroxi 202-0 2022- No 75ug Take 75 Un mandy ne 75 mcg 10-19-18 mcg by ity of tablet 00:00: 00:00 mouth. [place] 00 :00 Medical Branch levothyroxi 2021- No 75ug Take 75 Un mandy ne 75 mcg 10-19-18 mcg by ity of tablet 00:00: 00:00 mouth. [place] 00 :00 Medical Branch hydrOXYzine 2021- No [...] BY ity of tablet 00:00: 00:00 MOUTH [place] 00 :00 TWICE Medical DAILY Branch NEEDED hydrOXYzine 2021- No TAKE 1 Uni vers 25 mg 4-16 18 TABLET BY ity of tablet 00:00: 00:00 MOUTH [place] 00 :00 TWICE Medical DAILY Branch NEEDED hydrOXYzine 2020-2021- No TAKE 1 Uni vers 25 mg 4-16 -18 TABLET BY ity of tablet 00:00: 00:00 MOUTH [place] 00 :00 TWICE Medical DAILY Branch NEEDED Immunizations Ordered Filled Immunization Date Status Comments [facility] e Immunization Name Name SARS-COV-2 COVID-19 2020-10-30 Completed Unive rsity of PFIZER VACCINE 00:00:00 [facility] SARS-COV-2 COVID-19 2020-10-30 Completed Unive rsity of PFIZER VACCINE 00:00:00 [facility] SARS-COV-2 COVID-19 2020-10-30 Completed Unive rsity of PFIZER VACCINE 00:00:00 [facility] SARS-COV-2 COVID-19 2020-10-30 Completed Unive rsity of PFIZER VACCINE 00:00:00 [facility] SARS-COV-2 COVID-19 2020-10-30 Completed Unive rsity of PFIZER VACCINE 00:00:00 [place] [facility] Branch SARS-COV-2 COVID-19 2020-10-30 Completed Unive rsity of PFIZER VACCINE 00:00:00 [facility] Branch SARS-COV-2 COVID-19 2020-10-30 Completed Unive rsity of PFIZER VACCINE 00:00:00 [facility] Branch SARS-COV-2 COVID-19 2020-10-30 Completed Unive rsity of PFIZER VACCINE 00:00:00 [facility] Branch SARS-COV-2 COVID-19 2020-10-30 Completed Unive rsity of PFIZER VACCINE 00:00:00 [facility] Branch SARS-COV-2 COVID-19 2020-10-30 Completed Unive rsity of PFIZER VACCINE 00:00:00 [facility] Branch SARS-COV-2 COVID-19 2020-10-30 Completed Unive rsity of PFIZER VACCINE 00:00:00 [facility] Branch SARS-COV-2 COVID-19 2020-10-30 Completed Unive rsity of PFIZER VACCINE 00:00:00 [facility] Branch SARS-COV-2 COVID-19 2020-10-30 Completed Unive rsity of PFIZER VACCINE 00:00:00 [facility] Branch SARS-COV-2 COVID-19 2020-10-30 Completed Unive rsity of PFIZER VACCINE 00:00:00 [facility] Branch SARS-COV-2 COVID-19 2020-10-30 Completed Unive rsity of PFIZER VACCINE 00:00:00 [facility] SARS-COV-2 COVID-19 2020-10-30 Completed Unive rsity of PFIZER VACCINE 00:00:00 [facility] Branch SARS-COV-2 COVID-19 2020-10-30 Completed Unive rsity of PFIZER VACCINE 00:00:00 [facility] Branch SARS-COV-2 COVID-19 2020-10-30 Completed Unive rsity of PFIZER VACCINE 00:00:00 [facility] Branch SARS-COV-2 COVID-19 2020-10-30 Completed Unive rsity of PFIZER VACCINE 00:00:00 [facility] SARS-COV-2 COVID-19 2020-10-30 Completed Unive rsity of PFIZER VACCINE 00:00:00 [facility] Branch SARS-COV-2 COVID-19 2020-10-30 Completed Unive rsity of PFIZER VACCINE 00:00:00 [facility] Branch SARS-COV-2 COVID-19 2020-10-30 Completed Unive rsity of PFIZER VACCINE 00:00:00 [facility] Branch SARS-COV-2 COVID-19 2020-10-30 Completed Unive rsity of PFIZER VACCINE 00:00:00 [facility] Branch SARS-COV-2 COVID-19 2020-10-30 Completed Unive rsity of PFIZER VACCINE 00:00:00 [facility] Branch SARS-COV-2 COVID-19 2020-10-30 Completed Unive rsity of PFIZER VACCINE 00:00:00 [facility] Branch SARS-COV-2 COVID-19 2020-10-30 Completed Unive rsity of PFIZER VACCINE 00:00:00 [facility] Branch SARS-COV-2 COVID-19 2020-10-30 Completed Unive rsity of PFIZER VACCINE 00:00:00 [facility] Branch SARS-COV-2 COVID-19 2020-10-30 Completed Unive rsity of PFIZER VACCINE 00:00:00 [facility] Branch SARS-COV-2 COVID-19 2020-09-30 Completed Unive rsity of PFIZER VACCINE 00:00:00 [facility] Branch SARS-COV-2 COVID-19 2020-09-30 Completed Unive rsity of PFIZER VACCINE 00:00:00 [facility] Branch SARS-COV-2 COVID-19 2020-09-30 Completed Unive rsity of PFIZER VACCINE 00:00:00 [facility] Branch SARS-COV-2 COVID-19 2020-09-30 Completed Unive rsity of PFIZER VACCINE 00:00:00 [facility] Branch SARS-COV-2 COVID-19 2020-09-30 Completed Unive rsity of PFIZER VACCINE 00:00:00 [facility] Branch SARS-COV-2 COVID-19 2020-09-30 Completed Unive rsity of PFIZER VACCINE 00:00:00 [facility] Branch SARS-COV-2 COVID-19 2020-09-30 Completed Unive rsity of PFIZER VACCINE 00:00:00 [facility] Branch SARS-COV-2 COVID-19 2020-09-30 Completed Unive rsity of PFIZER VACCINE 00:00:00 [facility] Branch SARS-COV-2 COVID-19 2020-09-30 Completed Unive rsity of PFIZER VACCINE 00:00:00 [facility] Branch SARS-COV-2 COVID-19 2020-09-30 Completed Unive rsity of PFIZER VACCINE 00:00:00 [facility] Branch SARS-COV-2 COVID-19 2020-09-30 Completed Unive rsity of PFIZER VACCINE 00:00:00 [facility] Branch SARS-COV-2 COVID-19 2020-09-30 Completed Unive rsity of PFIZER VACCINE 00:00:00 [facility] Branch SARS-COV-2 COVID-19 2020-09-30 Completed Unive rsity of PFIZER VACCINE 00:00:00 [facility] Branch SARS-COV-2 COVID-19 2020-09-30 Completed Unive rsity of PFIZER VACCINE 00:00:00 [facility] Branch SARS-COV-2 COVID-19 2020-09-30 Completed Unive rsity of PFIZER VACCINE 00:00:00 [facility] Branch SARS-COV-2 COVID-19 2020-09-30 Completed Unive rsity of PFIZER VACCINE 00:00:00 [facility] Branch SARS-COV-2 COVID-19 2020-09-30 Completed Unive rsity of PFIZER VACCINE 00:00:00 [facility] Branch SARS-COV-2 COVID-19 2020-09-30 Completed Unive rsity of PFIZER VACCINE 00:00:00 [facility] Branch SARS-COV-2 COVID-19 2020-09-30 Completed Unive rsity of PFIZER VACCINE 00:00:00 [facility] Branch SARS-COV-2 COVID-19 2020-09-30 Completed Unive rsity of PFIZER VACCINE 00:00:00 [facility] Branch SARS-COV-2 COVID-19 2020-09-30 Completed Unive rsity of PFIZER VACCINE 00:00:00 [facility] Branch SARS-COV-2 COVID-19 2020-09-30 Completed Unive rsity of PFIZER VACCINE 00:00:00 [facility] Branch SARS-COV-2 COVID-19 2020-09-30 Completed Unive rsity of PFIZER VACCINE 00:00:00 [facility] Branch SARS-COV-2 COVID-19 2020-09-30 Completed Unive rsity of PFIZER VACCINE 00:00:00 [facility] SARS-COV-2 COVID-19 2020-09-30 Completed Unive rsity of PFIZER VACCINE 00:00:00 [facility] SARS-COV-2 COVID-19 2020-09-30 Completed Unive rsity of PFIZER VACCINE 00:00:00 [facility] SARS-COV-2 COVID-19 2020-09-30 Completed Unive rsity of PFIZER VACCINE 00:00:00 [facility] SARS-COV-2 COVID-19 2020-09-30 Completed Unive rsity of PFIZER VACCINE 00:00:00 [facility] Vital Signs Vital Name Observation Time Observation Value Comments Source Systolic blood 2022-04-04 14:31:00 129 mm[Hg] Univer sity of pressure [facility] Diastolic blood 2022-04-04 14:31:00 83 mm[Hg] Unive rsity of pressure [facility] Heart rate 2022-04-04 14:31:00 89 /min Universi ty of [facility] Body height 2022-04-04 14:31:00 162.6 cm Universi ty of [facility] Body weight 2022-04-04 14:31:00 104.327 kg Universi ty of [facility] BMI 2022-04-04 14:31:00 39.48 kg/m2 Universi ty of [facility] Systolic blood 2022-03-17 12:44:00 118 mm[Hg] Univer sity of pressure [facility] Diastolic blood 2022-03-17 12:44:00 75 mm[Hg] Unive rsity of pressure [facility] Heart rate 2022-03-17 12:44:00 65 /min Universi ty of [facility] Body temperature 2022-03-17 12:44:00 36.56 Misti [facility] ersity of [facility] Respiratory rate 2022-03-17 12:44:00 16 /min [facility] saturation in 2022-03-17 12:44:00 98 /min [facility] Arterial blood by [facility] Pulse oximetry [place] Body height 2022-03-14 17:00:00 162.6 cm Universi ty of [facility] Body weight 2022-03-14 17:00:00 104.327 kg Universi ty of [facility] BMI 2022-03-14 17:00:00 39.48 kg/m2 Universi ty [...] 98 /min University of Arterial blood by [place] [employer] nirmala Pulse oximetry Branch Systolic blood 2022-02-07 20:49:00 106 mm[Hg] Univer sity of pressure [place] [facility] Diastolic blood 2022-02-07 20:49:00 68 mm[Hg] Unive rsity of pressure [place] [facility] Heart rate 2022-02-07 20:49:00 72 /min Universi ty of [place] [facility] Body temperature 2022-02-07 20:49:00 36.67 Misti Univ ersity of [place] [facility] Respiratory rate 2022-02-07 20:49:00 18 /min Univ ersity of [place] [facility] Body height 2022-02-07 20:49:00 162.6 cm Universi ty of [place] [facility] Body weight 2022-02-07 20:49:00 104.69 kg Universi ty of [place] [facility] BMI 2022-02-07 20:49:00 39.62 kg/m2 Universi ty of [place] [facility] Oxygen saturation in 2022-02-07 20:49:00 100 /min University of Arterial blood by [employer] nirmala Pulse oximetry Branch Systolic blood 2022-02-05 00:52:00 109 mm[Hg] Univer sity of pressure [place] [facility] Diastolic blood 2022-02-05 00:52:00 65 mm[Hg] Unive rsity of pressure [place] [facility] Heart rate 2022-02-05 00:52:00 62 /min Universi ty of [place] [facility] Respiratory rate 2022-02-05 00:52:00 16 /min Univ ersity of [place] [facility] Oxygen saturation in 2022-02-05 00:52:00 100 /min University of Arterial blood by [place] [employer] nirmala Pulse oximetry Branch Body temperature 2022-02-04 22:25:00 36.5 Misti Univ ersity of [place] [facility] Body height 2022-02-04 22:25:00 162.6 cm Universi ty of [place] [facility] Body weight 2022-02-04 22:25:00 104.327 kg Universi ty of [place] [facility] BMI 2022-02-04 22:25:00 39.48 kg/m2 Universi ty of [place] [facility] Systolic blood 2022-02-04 15:53:00 114 mm[Hg] Univer sity of pressure [place] [facility] Diastolic blood 2022-02-04 15:53:00 83 mm[Hg] Unive rsity of pressure [place] [facility] Heart rate 2022-02-04 15:53:00 71 /min Universi ty of [place] [facility] Body height 2022-02-04 15:53:00 162.6 cm Universi ty of [place] [facility] Body weight 2022-02-04 15:53:00 104.055 kg Universi ty of [place] [facility] BMI 2022-02-04 15:53:00 39.38 kg/m2 Universi ty of [place] [facility] Oxygen saturation in 2022-02-04 15:53:00 99 /min University of Arterial blood by [place] [employer] nirmala Pulse oximetry Branch Systolic blood 2022-01-24 20:47:00 107 mm[Hg] Univer sity of pressure [place] [facility] Diastolic blood 2022-01-24 20:47:00 71 mm[Hg] Unive rsity of pressure [place] [facility] Heart rate 2022-01-24 20:47:00 89 /min Universi ty of [place] [facility] Body height 2022-01-24 20:47:00 162.6 cm Universi ty of [place] [facility] Body weight 2022-01-24 20:47:00 104.554 kg Universi ty of [place] [facility] BMI 2022-01-24 20:47:00 39.57 kg/m2 Universi ty of [place] [facility] Oxygen saturation in 2022-01-24 20:47:00 97 /min University of Arterial blood by [facility] Pulse oximetry Branch Procedures Procedure Date / Time Performing Source Performed Clinician EXTERNAL PROVIDER RECORDS 2022-05-03 Doctor Unassigned, [facility] 06:01:00 [place] [facility] MR BRAIN WO CONTRAST 2022-02-[address] [facility] 20:03:00 Gene [facility] RHEUMATOID FACTOR 2022-02-[address] [facility] 21:39:00 [facility] C-REACTIVE PROTEIN 2022-02-[address] [facility] 21:39:00 [facility] SEDIMENTATION RATE 2022-02-[address] [facility] 21:39:00 [facility] VITAMIN D, 25-OH 2022-02-07 Ginger Vee [facility] 21:39:00 [facility] ANTI-NUCLEAR ANTIBODY SCREEN 2022-02-07 Ginger Vee [facility] 21:39:00 [facility] ANTI-NUCLEAR ANTIBODY TITER 2022-02-07 Ginger Vee [facility] 21:39:00 [facility] ANTI-NUCLEAR 2022-02-07 Ginger Vee [facility] xa ANTIBODY-PATHOLOGIST 21:39:00 [facility] INTERPRETATION POCT TEST 2022-02-04 Prasad [facility] 23:26:00 [facility] URINE DRUG (IMMUNOASSAY) - 2022-02-04 [facility] 23:21[facility]00 [facility]YSIS [facility]22[facility]02-04 [facility] 23:21:00 [facility] CREATINE KINASE 2022-02-04 Prasad [facility] 22:47:00 [facility] MAGNESIUM 2022-02-04 Prasad [facility] 22:47:00 [facility] TROPONIN I 2022-02-04 [facility] 22:47:00 [facility] THYROID STIMULATING HORMONE 2022-02-04 Prasad [facility] 22:47:00 [facility] COMP. METABOLIC PANEL (86953) 2022-02-04 Tonja Parham [facility] 22:47:00 [facility] CBC WITH DIFF 2022-02-04 Prasad [facility] 22:47:00 [facility]IMER [facility]22-02-04 [facility]:47[facility]00 [facility] ELECTROENCEPHALOGRAM 2022-01-[address] [facility] 00:00:00 [facility] Encounters Start End Encounter Admission Attending Care Care Encounter Source Date/Time Date/Time Type Type Clinicians Facility Department ID 2022-05-03 2022-05-03 Orders Doctor CORBIN 1.2.840.114 [id number] Univers 00:00:00 00:00:00 Only Unassigned, DAISHA 350.1.13.10 ity of [place] [facility] 4.2.7.2.686 [place] [id number] [address] 2022-04-04 2022-04-04 Outpatient NESTOR PATEL [facility] [id number] Univers 08:20:00 08:52:34 [facility]22-[facility]-04 2022-04-04 Office Chuy [facility] 1.2.840.114 [id number] Univers 08:20:00 08:52:34 Visit Nestor [facility] 350.1.13.10 ity of [place] 4.2.7.2.686 Garrett as ASTON?BLEA [id number] [address] MEDICAL OFFICE BUILDING 2022-03-21 2022-03-21 Outpatient JUANPABLO FUENTES [facility] [id number] Univers 08:30:00 08:30:00 ity of [facility] 2022-03-18 2022-03-18 Telephone Chuy [facility] 1.2.840.114 [id number] Univers 00:00:00 00:00:00 [facility] 350.1.13.10 ity of [place] 4.2.7.2.686 Garrett as ASTON?BLEA [id number] [address] MEDICAL OFFICE BUILDING 2022-03-18 2022-03-18 Transition TIMOTHY Naranjo 1.2.840.114 [id number] Univers 00:00:00 00:00:00 of Care Ruben PARTIDAY 350.1.13.10 [place] [id number] [facility] 403 Branch 2022-03-18 2022-03-18 Telephone [facility] 1.2.840.114 [id number] Univers 00:00:00 00:00:00 [facility] [id number] [place] [id number] [address] 2022-03-14 2022-03-17 Inpatient R NEPTALI [facility] [place] [id number] Univers 09:04:00 12:32:00 [facility] 2022-03-14 2022-03-17 Hospital KIM Wolff 1.2.840.114 [id number] Univers 09:04:00 12:32:00 Encounter Bette DAISHA 350.1.13.10 ity of HOSPITAL 4.2.7.2.686 [place] as [id number] [facility] [address] [place] 2022-03-14 2022-03-14 Outpatient R LEISA HUGHES [facility] [id number] Univers 11:30:00 11:30:00 [facility] 2022-03-14 2022-03-14 Outpatient R [facility] [id number] Univers 11:30:00 11:30:00 [facility] 2022-02-28 2022-02-28 Letter [facility] 1.2.840.114 [id number] Univers 00:00:00 00:00:00 (Out) [facility] 350.1.13.10 ity of [place] 4.2.7.2.686 [place] as ASTON?BLEA [id number] [address] MEDICAL OFFICE [facility] 2022-02-25 2022-02-25 Telephone [facility] 1.2.840.114 [id number] Univers 00:00:00 00:00:00 [facility] 350.1.13.10 ity of [place] 4.2.7.2.686 Garrett as ASTON?BLEA [id number] [address] MEDICAL OFFICE BUILDING 2022-02-18 2022-02-18 Telephone Chuy [facility] 1.2.840.114 [id number] Univers 00:00:00 00:00:00 Nestor Cannon [facility] 350.1.13.10 ity of [place] 4.2.7.2.686 Garrett as ASTON?BLEA [id number] [address] MEDICAL OFFICE [facility] 2022-02-17 2022-02-17 Outpatient NESTOR PATEL [facility] [id number] Univers 14:06:52 23:59:00 NESTOR VERA itbeckie [facility] [place] [facility] 2022-02-17 2022-02-17 [facility] Chuy [facility] [id number] Univers 14:06:52 23:59:00 Encounter Nestor MARCANO 350.1.13.10 ity of [place] 4.2.7.2.686 [facility] [id number] [facility] 804 Branch 2022-02-11 2022-02-11 Outpatient R NESTOR VERA [facility] [id number] Univers 08:00:00 09:16:44 NESTOR VERA beckie [facility] [place] [facility] 2022-02-11 2022-02-11 Office Chuy [facility] 1.2.840.114 [id number] Univers 08:00:00 09:16:44 Visit Nestor Cannon [facility] 350.1.13.10 ity of [place] 4.2.7.2.686 Garrett as ASTON?BLEA [id number] [address] MEDICAL OFFICE [facility] 2022-02-09 2022-02-09 Patient Mariusz [facility] 1.2.840.114 [id number] Univers 00:00:00 00:00:00 Secure Msg Ginger Robert MULTISPEC 350.1.13.10 ity of [facility] 4.2.7.2.686 [place] [facility] [id number] [facility] AND [facility]ERS [address] [place] [address] [facility] CLIN[facility] 2022-02-07 2022-02-[address] Deputy Clerk Vtc-Lab [facility] 1.2.840.114 [id number] Univers 16:45:00 17:00:00 Visit Ginger Vee MULTISPEC 350.1.13.10 [place] [id number] [facility] AND [place] [address] [place] [facility] 2022-02-07 2022-02-07 Outpatient R MARIUSZ [facility] [id number] Univers 15:45:00 16:29:27 GINGER beckie [facility] [place] [facility] 2022-02-07 2022-02-07 [facility] 1.2.840.114 [id number] Univers 15:45:00 16:29:27 Visit Ginger [facility] 350.1.13.10 [place] [id number] [address] [facility]ETES [facility]IC 2022-02-04 2022-02-04 Emergency X PRASAD [facility] ERT [id number] Univers 17:20:00 20:47:00 TONJA riley [facility] 2022-02-04 2022-02-04 Emergency Prasad [facility] 1.2.840.114 [id number] Univers 17:20:00 20:47:00 Tonja MARCANO 350.1.13.10 i ty [place] [id number] [address] 2022-02-04 2022-02-04 Outpatient R PRACHI [facility] [id number] Univers 11:00:00 12:52:07 PARI [facility] 2022-02-04 2022-02-04 Office Steven Jerome [facility] 1.2.840. 114 [id number] Univers 11:00:00 12:52:07 [facility] 350.1.13.10 ity of [place] 4.2.7.2.686 [place] as ASTON?BLEA [id number] In trinity SCHWAB [address] [place] [address] MEDICAL OFFICE BUILDING 2022-01-30 2022-01-30 Emergency X JULIA [facility] ERT [id number] Univers 20:10:00 20:56:00 NIDA riley [facility] 2022-01-30 2022-01-30 Emergency Julia [facility] 1.2.840.114 [id number] Univers 20:10:00 20:56:00 Nida SOLERTON 350.1.13.10 it[place]2.7[place] [id number] [facility] [address] [place] 2022-01-28 2022-01-28 Telephone Minerva Juanpablo [facility] 1.2.840.114 [id number] Univers 00:00:00 00:00:00 S HEALTH 350.1.13.10 it [facility] 4.2.7.2.686 [place] as ASTON?BLEA [id number] In dicnaveen SCHWAB [address] MEDICAL OFFICE BUILDING 2022-01-27 2022-01-27 Hospital Juanpablo Palma [facility] 1.2.840.114 [id number] Univers 10:59:59 23:59:00 Encounter Bernadette May DAISHA 350.1.13.10 [place] [id number] [facility] [address] [place] 2022-01-27 2022-01-27 Outpatient R JUANPABLO PALMA [facility] [id number] Univers 10:59:59 23:59:00 ity of [facility] 2022-01-27 2022-01-27 Outpatient R JUANPABLO PALMA [facility] [id number] Univers 10:59:59 23:59:00 ity of [facility] 2022-01-27 2022-01-27 Patient Jerome, [facility] [id number] Univers 00:00:00 00:00:00 Secure Msg Steven Optisort 350.1.13.10 [facility] 4.2.7.2.686 Garrett as ASTON?BLEA [phone] In dicnaveen [address] [facility] 2022-01-26 2022-01-[address] Deputy Clerk Lab, [place] - Cory [facility] [id number] Univers 08:15:00 08:30:00 Visit Steven Jerome Gladys HEALTH 350.1.13.10 ity of [place] 4.2.7.2.686 Garrett as ASTON?BLEA [phone] In trinity [address] MED[facility] 2022-01-26 2022-01-26 Outpatient R QUEENIE [facility] [id number] Univers 08:15:00 08:15:00 STEVEN riley [facility] 2022-01-24 2022-01-24 Outpatient R JEROME [facility] [id number] Univers 15:30:00 16:38:24 STEVEN riley [facility] 2022-01-24 2022-01-24 [facility] [id number] Univers 15:30:00 16:38:24 Visit Steven HEALTH 350.1.13.10 it y of [place] 4.2.7.2.686 Garrett as ASTON?BLEA [phone] In trintiy SCHWAB [address] [facility] OFFICE BUILDING 2022-01-24 2022-01-24 Orders Doctor ALANIZ [id number] Univers 00:00:00 00:00:00 Only Unassigned, DAISHA 350.1.13.10 ity of [place] 4.2.7.2.686 Garrett as [phone] [address] 2021-12-23 2021-12-23 Orders Doctor CORBIN [id number] Univers 00:00:00 00:00:00 Only Unassigned, DAISHA 350.1.13.10 ity of [place] 4.2.7.2.686 Garrett as [phone] [address] 2020-11-23 2020-11-23 Urgent Provider, [facility] 1.2.840.114 [id number] Univers 19:54:01 20:42:50 Care Surya [facility] 350.1.13.10 ity of [place] 4.2.7.2.686 Garrett as Professio [phone] In gwennaveen [address] Office [address] 2020-11-23 2020-11-23 Outpatient R ADELA [facility] [id number] Univers 20:20:00 20:20:00 SURYA riley [facility] 2020-11-23 2020-11-23 Orders Doctor CORBIN Real2.840.114 [id number] Univers 00:00:00 00:00:00 Only Unassigned, DAISHA 350.1.13.10 ity of [place] [facility] 4.2.7.2.686 Garrett as [phone] [facility] [address] 2020-11-23 2020-11-23 Letter Doctor CORBIN 1.2.840.114 [id number] Univers 00:00:00 00:00:00 (Out) Unassigned, DAISHA 350.1.13.10 ity of [place] 4.2.7.2.686 Garrett as [phone] [facility] [address] 2020-11-23 2020-11-23 Letter Doctor CORBIN 1.2.840.114 [id number] Univers 00:00:00 00:00:00 (Out) Unassigned, DAISHA 350.1.13.10 ity of [place] 4.2.7.2.686 Garrett as [phone] [facility] [address] 2020-10-21 2020-10-21 Outpatient Pedro STEVENS [facility] [id number] Univers 08:30:00 08:30:00 [facility] 2020-09-30 2020-09-30 Outpatient Pedro STEVENS [facility] [id number] Univers 08:20:00 08:20:00 [facility] 2020-05-28 2020-05-28 Urgent Provider, [facility] 1.2.840.114 [id number] Univers 08:53:14 09:31:38 Care Steven Portillo [facility] 350.1.13.10 ity of [place] 4.2.7.2.686 Garrett as Professio [phone] [address] Office [address] 2020-05-28 2020-05-28 Outpatient Pedro PORTILLO [facility] [id number] Univers 09:00:00 09:00:00 STEVEN [facility] Results Test Description Test Time Test Comments Results Result Comments Source POCT TEST 2022-02-04 23:26:00 Test Item Value Reference Range Interpretation Comme nts POCT PREG (test code = 1605) negative On board controls acceptable with C Line (test code = 3574) present POCT PREG LOT # (test code = 3575) [id number] POCT PREG TEST DATE (test code = 3576) 04/13/2023 Lab Interpretation (test code = 05645-1) [facility]
--- NOTE | 2022-10-13 10:51 | ER ---
Nurse's Notes [facility] Name: Nusrat Mart Age: 27 yrs Sex: Female : 1995 Arrival Date: 10/13/2022 Time: 10:18 Bed 7 Private MD: Diagnosis: Non-epileptic seizure;Elevated blood-pressure reading, without diagnosis of hypertension Presentation: 10/13 10:05 Chief complaint: EMS states: patient was at work and had a seizure lasting about a ko1 minute. She is not on seizure medication. She was postictal on EMS arrival, began to wake up after being loaded into the ambulance. Coronavirus screen: At this time, the client does not indicate any symptoms associated with coronavirus-19. Ebola Screen: No symptoms or risks identified at this time. Initial Sepsis Screen: Does the patient meet any 2 criteria? No. Patient's initial sepsis screen is negative. Does the patient have a suspected source of infection? No. Patient's initial sepsis screen is negative. Risk Assessment: Do you want to hurt yourself or someone else? Patient reports no desire to harm self or others. Onset of symptoms was October 13, 2022. Care prior to arrival: Medication(s) given: D10 drip IV initiated. 20 GA, in the right antecubital area, Glucose check: 75. Activity prior to arrival: seizure. 10:05 Method Of Arrival: EMS: [facility] ko1 10:05 Acuity: PIERRE 3 ko1 Triage Assessment: 10:27 General: Appears in no apparent distress. comfortable, Behavior is cooperative, ko1 appropriate for age, drowsy. Pain: Denies pain. 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 - Social history:: Smoking status: Patient denies any tobacco usage or history of. Screenin:05 [facility] ED Fall Risk Assessment (Adult) History of falling in the last 3 months, ko1 including since admission No falls in past 3 months (0 pts) Confusion or Disorientation No (0 pts) Intoxicated or Sedated No (0 pts) Impaired Gait No (0 pts) Mobility Assist Device Used No (0 pt) Altered Elimination No (0 pt) Score/Fall Risk Level 0 - 2 = Low Risk Oriented to surroundings, Maintained a safe environment, Educated pt \T\ family on fall prevention, incl call for assistance when getting out of bed, Assessed \T\ reinforced patient's understanding of fall precautions, Provided non-skid footwear, Hourly rounding (assess needs \T\ fall precautionary measures) done, Used ambulatory aids as needed (educated on \T\ assisted with), Used gait belt as appropriate. Abuse screen: Denies threats or abuse. Denies injuries from another. Nutritional screening: No deficits noted. Tuberculosis screening: No symptoms or risk factors identified. Assessment: 10:05 Neuro: Seizure activity reported prior to arrival. Seizure lasted approximately 1 ko1 minutes. Cardiovascular: No deficits noted. Respiratory: No deficits noted. GI: No deficits noted. : No deficits noted. EENT: No deficits noted. Derm: No deficits noted. Musculoskeletal: No deficits noted. Vital Signs: 10:24 BP 137 / 92; Pulse 70; Resp 16; Temp 98.4; Pulse Ox 100% on R/A; ko1 ED Course: 10:05 Patient has correct armband on for positive identification. Bed in low position. Call ko1 light in reach. Side rails up X2. Client placed on continuous cardiac and pulse oximetry monitoring. NIBP monitoring applied. compliance monitor on. Door closed. Noise minimized. Warm blanket given. 10:05 No provider procedures requiring assistance completed. Maintain EMS IV. Dressing ko1 intact. Site clean \T\ dry. Gauge \T\ site: 20 R AC. IV is patent, is intact, Flushed right antecubital with 5 ml normal saline. Patient maintains SpO2 saturation greater than 95% on room air. 10:20 Patient arrived in ED. kj1 10:21 Rommel Winston DO is Attending Physician. ms3 10:23 Vivi Guadalupe, MICHAEL is Primary Nurse. ko1 10:27 Triage completed. ko1 10:27 Arm band placed on right wrist. Patient placed in an exam room, on a stretcher, on ko1 pulse oximetry, Patient notified of wait time. 11:21 IV discontinued, intact, bleeding controlled, No redness/swelling at site. Pressure ko1 dressing applied. Administered Medications: No medications were administered Medication: 10:05 VIS not applicable for this client. ko1 Outcome: 10:51 Discharge ordered by . ms3 11:21 Discharged to home ambulatory. ko1 11:21 Condition: improved 11:21 Discharge instructions given to patient, Instructed on discharge instructions, follow up and referral plans. Demonstrated understanding of instructions, follow-up care. 11:22 Patient left the ED. ko1 Signatures: Renetta Henson1 Rommel Winston DO DO ms3 Vivi Guadalupe, RN RN ko1 Corrections: (The following items were deleted from the chart) 10:32 10:27 Home Meds: sertraline oral; ko1 ko1 10:32 10:27 Home Meds: Depakote Oral; ko1 ko1 10:32 10:27 Home Meds: levothyroxine oral; ko1 ko1 10:32 10:27 PMHx: Hypothyroidism; ko1 ko1
[2022-10-13 11:27] VITALS: BP 137/92; TEMP 98.4; O2SAT 100
== END 2022-10-13 11:22 | disposition home or self-care (01) ==
LOC: ER 10:18
DX: R56.9 Unspecified convulsions (principal); R03.0 Elevated blood-pressure reading, without diagnosis of hypertension
CPT/HCPCS: 99284